=== PATIENT | female | born 1940 | race Two or more races ===

== ENCOUNTER 2017-10-13 08:11 | Inpatient (IN) | payer OTHER ==
[~2017-10-13] VITALS: Ht 162.6 cm; Wt 76.8 kg
[2017-10-13] MEDS ORDERED: SODIUM CHLORIDE 0.9% 1,000 ML IV ONE (08:34)
[2017-10-13 09:04] LABS: Basophils # (auto) 0.1 uL; Eosinophils # (auto) 0 uL; Eosinophils % (auto) 0.2 % (0.0-7.0); Hemoglobin 10.7 g/dL (12.2-16.2); Lymphocytes # (auto) 1.3 uL; Monocytes # (auto) 1.1 uL
[2017-10-13 09:08] LABS: Basophils % (auto) 0.6 % (0.0-2.0); Hematocrit 31.8 % (36.0-46.0); Lymphocytes % (auto) 11.2 % (10.0-50.0); Mean Corpuscular Hemoglobin 26.3 pg (28.0-32.0); Mean Corpuscular Hgb Conc. 33.8 g/dL (32.0-36.0); Mean Corpuscular Volume 77.8 fL (80.0-100.0); Monocytes % (auto) 9.3 % (0.0-12.0); Neutrophils # (auto) 9.3 uL; Neutrophils % (auto) 78.7 % (37.0-80.0); Nucleated Red Blood Cells % 0.1 %; Platelet Count (auto) 298 10^3/uL (140-450); Red Blood Cells 4.09 10^6/uL (4.0-5.20); Red Cell Distribution Width 15.4 % (11.8-14.3); White Blood Cell 11.9 10^3/uL (4.4-10.8)
[2017-10-13 09:19] LABS: Alanine Aminotransferase 14 U/L (13-56); Albumin 3.1 g/dL (3.4-5.0); Anion Gap 11 (5-15); Aspartate Aminotransferase 3 U/L (15-37); Blood Urea Nitrogen 10 mg/dL (7-18); Calcium 7.8 mg/dL (8.5-10.1); Carbon Dioxide 23 mmol/L (21-32); Chloride 95 mmol/L (98-107); GFR African American 61 mL/min; GFR Non-African American 51 mL/min; Glucose 160 mg/dL (74-106); Magnesium 1.3 mg/dL (1.6-2.6); Potassium 3.6 mmol/L (3.5-5.1); Sodium 129 mmol/L (136-145)
[2017-10-13 09:23] LABS: Alkaline Phosphatase 63 U/L (45-117); Bilirubin, Total 0.6 mg/dL (0.2-1.0); Total Protein 7.2 g/dL (6.4-8.2)
[2017-10-13] MEDS ORDERED: ASPirin 81 mg TAB PO ONE ×2 (09:45→11:15)
[2017-10-13 10:30] LABS: Urine Bacteria NONE SEEN /hpf (None Seen); Urine Blood Negative /uL (Negative); Urine Mucus FEW (None Seen); Urine Specific Gravity 1.005 (1.001-1.035); Urine WBC 68 /hpf (0 - 5)
[2017-10-13] MEDS ORDERED: SODIUM CHLORIDE 0.9% 1,000 ML IV SCH (10:53)
[2017-10-13] MEDS ORDERED: NITROGLYCERIN 0.4 MG SL TAB SL PRN (11:00)
[2017-10-13] MEDS ORDERED: MORPHINE SULF INJ 2 MG/ML SYRINGE 1ML IV PRN ×2 (11:00)
[2017-10-13] MEDS ORDERED: LORazepam 0.5 MG TAB PO PRN (11:00)
[2017-10-13] MEDS ORDERED: LACTULOSE 20Gm/30ML SOLN PO PRN (11:00)
[2017-10-13] MEDS ORDERED: ACETAMINOPHEN 500 MG TAB PO PRN (11:00)
[2017-10-13] MEDS ORDERED: TEMAZEPAM 15 MG CAP PO PRN (11:00)
[2017-10-13] MEDS ORDERED: DEXTROSE (50%) 50ML SYRG IV PRN (11:00)
[2017-10-13] MEDS ORDERED: PROMETHAZINE HCL 25 MG/ML 1ML IV PRN (11:00)
[2017-10-13] MEDS ORDERED: LABETALOL HCL 5 MG/ML ML 20ML VIAL IV PRN (11:00)
[2017-10-13] MEDS: ACCU-CHEK COMFORT CURVE STRIP VI SCH ×3 (11:10→22:00)
[2017-10-13] MEDS ORDERED: PANTOPRAZOLE 40 MG TAB PO ONE (11:15)
[2017-10-13] MEDS ORDERED: ENOXAPARIN SOD 40 MG/0.4 ML SYRINGE SC ONE (11:15)
[2017-10-13] MEDS: SODIUM CHLORIDE 0.9% 1,000 ML IV SCH (11:21)
[2017-10-13] MEDS: InsuLIN REG 1unit/0.01ml Soln (100units/ml) SC SCH ×3 (11:21→22:42)
[2017-10-13] MEDS ORDERED: ACET-1156 PO (11:25)
[2017-10-13] MEDS ORDERED: METH5TAB77 PO (11:33)
[2017-10-13] MEDS ORDERED: OMEP20TA PO (11:33)
[2017-10-13] MEDS ORDERED: GABA300C10 PO (11:33)
[2017-10-13] MEDS ORDERED: METO25TA62 PO (11:33)
[2017-10-13] MEDS ORDERED: ASPI81TA27 PO (11:33)
[2017-10-13] MEDS ORDERED: SERT-274 PO (11:33)
[2017-10-13] MEDS ORDERED: SITA100T7 PO (11:33)
[2017-10-13] MEDS ORDERED: METF-372 PO (11:33)
[2017-10-13] MEDS ORDERED: ATOR10TA52 PO (11:33)
[2017-10-13] MEDS ORDERED: ALEN70TA55 PO (11:33)
[2017-10-13] MEDS ORDERED: LISI40TA PO (11:33)
[2017-10-13] MEDS ORDERED: AMLO5TAB2 PO (11:33)
[2017-10-13] MEDS ORDERED: ISOSPOW2 PO (11:33)
[2017-10-13] MEDS ORDERED: HYDR25TA4 PO (11:33)
[2017-10-13 13:00] VITALS: BP 132/71
[2017-10-13 14:11] LABS: Folate (Folic Acid) 12.95 ng/mL (5.38-24)
[2017-10-13 17:30] VITALS: BP 151/83
[2017-10-13 21:33] VITALS: BP 150/85
[2017-10-13] MEDS: ATORVASTATIN 20 MG TAB PO SCH (22:36)
[2017-10-14] MEDS: SODIUM CHLORIDE 0.9% 1,000 ML IV SCH ×3 (03:46→20:08)
[2017-10-14 04:55] VITALS: BP 146/70
[2017-10-14 05:49] LABS: Basophils # (auto) 0 uL; Basophils % (auto) 0.5 % (0.0-2.0); Eosinophils # (auto) 0 uL; Eosinophils % (auto) 0.1 % (0.0-7.0); Hematocrit 31.6 % (36.0-46.0); Hemoglobin 10.8 g/dL (12.2-16.2); Lymphocytes # (auto) 0.9 uL; Lymphocytes % (auto) 11.6 % (10.0-50.0); Mean Corpuscular Hgb Conc. 34.2 g/dL (32.0-36.0); Monocytes # (auto) 0.6 uL; Monocytes % (auto) 8.8 % (0.0-12.0); Neutrophils # (auto) 5.8 uL; Platelet Count (auto) 290 10^3/uL (140-450); Red Blood Cells 4.01 10^6/uL (4.0-5.20); White Blood Cell 7.3 10^3/uL (4.4-10.8)
[2017-10-14 06:23] LABS: BUN/Creatinine Ratio 8.5; Bilirubin, Total 0.8 mg/dL (0.2-1.0); Calcium 7.9 mg/dL (8.5-10.1); Potassium 3.1 mmol/L (3.5-5.1); Total Protein 7.1 g/dL (6.4-8.2)
[2017-10-14] MEDS: InsuLIN REG 1unit/0.01ml Soln (100units/ml) SC SCH ×4 (06:30→21:39)
[2017-10-14] MEDS: ACCU-CHEK COMFORT CURVE STRIP VI SCH ×4 (06:30→21:24)
[2017-10-14] MEDS ORDERED: POTASSIUM CHL 20 Meq TABLET PO ONE (08:00)
[2017-10-14 09:00] VITALS: BP 154/66
[2017-10-14] MEDS ORDERED: cefTRIAXone 1GM/10ml IVPUSH 10 ML IV SCH (09:00)
[2017-10-14] MEDS: amLODIPine BESYLATE 5 MG TAB PO SCH (10:00)
[2017-10-14] MEDS: ENOXAPARIN SOD 40 MG/0.4 ML SYRINGE SC SCH (10:00)
[2017-10-14] MEDS: METOPROLOL SUCCINATE XL 50 MG TAB PO SCH (10:00)
[2017-10-14] MEDS: PANTOPRAZOLE 40 MG TAB PO SCH (10:00)
[2017-10-14] MEDS: ASPirin 81 mg TAB PO SCH (10:00)
[2017-10-14 12:50] VITALS: BP 144/60
[2017-10-14 17:00] VITALS: BP 150/77
[2017-10-14] MEDS: HYDROcodone-ACET 5/325MG TAB PO PRN (20:10)
[2017-10-14 22:01] VITALS: BP 123/56
[2017-10-14] MEDS: ATORVASTATIN 20 MG TAB PO SCH ×2 (22:40)
[2017-10-15 04:51] VITALS: BP 124/54
[2017-10-15] MEDS: ACCU-CHEK COMFORT CURVE STRIP VI SCH ×4 (06:24→22:00)
[2017-10-15] MEDS: InsuLIN REG 1unit/0.01ml Soln (100units/ml) SC SCH ×4 (06:30→23:10)
[2017-10-15 09:00] VITALS: BP 152/71
[2017-10-15] MEDS: LEVOTHYROXINE SODIUM 25 MCG TAB PO SCH (09:00)
[2017-10-15] MEDS: ASPirin 81 mg TAB PO SCH (10:00)
[2017-10-15] MEDS: ENOXAPARIN SOD 40 MG/0.4 ML SYRINGE SC SCH (10:00)
[2017-10-15] MEDS: PANTOPRAZOLE 40 MG TAB PO SCH (10:00)
[2017-10-15] MEDS: METOPROLOL SUCCINATE XL 50 MG TAB PO SCH (10:00)
[2017-10-15] MEDS: amLODIPine BESYLATE 5 MG TAB PO SCH (10:00)
[2017-10-15] MEDS ORDERED: NITROFURANTOIN (MONO) 100 mg CAP PO ONE (10:15)
[2017-10-15 12:22] LABS: INR 0.99 (0.9-1.15); Partial Thromboplastin Time 34.1 sec (23.78-33.04); Prothrombin Time 10.6 sec (9.27-12.13)
[2017-10-15 13:00] VITALS: BP 141/69
[2017-10-15] MEDS: HYDROcodone-ACET 5/325MG TAB PO PRN (15:23)
[2017-10-15 16:58] VITALS: BP 151/67
[2017-10-15] MEDS: SODIUM CHLORIDE 0.9% 1,000 ML IV SCH (17:04)
[2017-10-15 22:00] VITALS: BP 112/55
[2017-10-15] MEDS: NITROFURANTOIN (MONO) 100 mg CAP PO SCH (22:49)
[2017-10-15] MEDS: ATORVASTATIN 20 MG TAB PO SCH (22:49)
[2017-10-16] MEDS: SODIUM CHLORIDE 0.9% 1,000 ML IV SCH ×2 (00:58→18:20)
[2017-10-16 05:00] VITALS: BP 146/86
[2017-10-16] MEDS: ACCU-CHEK COMFORT CURVE STRIP VI SCH ×4 (06:31→22:04)
[2017-10-16] MEDS: LEVOTHYROXINE SODIUM 25 MCG TAB PO SCH (06:32)
[2017-10-16] MEDS: InsuLIN REG 1unit/0.01ml Soln (100units/ml) SC SCH ×4 (06:32→22:03)
[2017-10-16 08:55] VITALS: BP 155/64
[2017-10-16] MEDS: amLODIPine BESYLATE 5 MG TAB PO SCH ×2 (10:00→18:16)
[2017-10-16] MEDS: PANTOPRAZOLE 40 MG TAB PO SCH (10:00)
[2017-10-16] MEDS: METOPROLOL SUCCINATE XL 50 MG TAB PO SCH ×2 (10:00→18:17)
[2017-10-16] MEDS: ASPirin 81 mg TAB PO SCH (10:26)
[2017-10-16] MEDS: NITROFURANTOIN (MONO) 100 mg CAP PO SCH (10:26)
[2017-10-16] MEDS: ENOXAPARIN SOD 40 MG/0.4 ML SYRINGE SC SCH (10:27)
[2017-10-16 11:24] LABS: Free T3 2.51 pg/mL (2.3-4.2); Free T4 (Free Thyroxine) 1.29 ng/dL (0.89-1.76)
[2017-10-16 13:10] VITALS: BP 161/78
[2017-10-16] MEDS ORDERED: ADENOSINE 71 MG in GIVE UN-DILUTED 0 ML IV ONE (13:45)
[2017-10-16] MEDS ORDERED: MORPHINE SULF INJ 2 MG/ML SYRINGE 1ML IV PRN ×2 (14:15)
[2017-10-16] MEDS ORDERED: HYDROcodone-ACET 5/325MG TAB PO PRN (14:15)
[2017-10-16] MEDS ORDERED: cefTRIAXone 1GM/10ml IVPUSH 10 ML IV ONE (14:15)
[2017-10-16 16:21] VITALS: BP 180/81
[2017-10-16] MEDS ORDERED: LORazepam 2MG/ML-1ML VIAL IV PRN (19:30)
[2017-10-16 22:00] VITALS: BP 160/80
[2017-10-16] MEDS: ATORVASTATIN 20 MG TAB PO SCH (22:03)
[2017-10-17 05:04] VITALS: BP 154/75
[2017-10-17] MEDS: SODIUM CHLORIDE 0.9% 1,000 ML IV SCH ×2 (05:30→19:20)
[2017-10-17] MEDS: LEVOTHYROXINE SODIUM 25 MCG TAB PO SCH (06:30)
[2017-10-17] MEDS: ACCU-CHEK COMFORT CURVE STRIP VI SCH ×4 (06:31→21:40)
[2017-10-17] MEDS: InsuLIN REG 1unit/0.01ml Soln (100units/ml) SC SCH ×4 (06:31→21:40)
[2017-10-17 06:51] LABS: Basophils # (auto) 0 uL; Eosinophils # (auto) 0.1 uL; Hemoglobin 11.1 g/dL (12.2-16.2); Neutrophils # (auto) 2.7 uL
[2017-10-17 06:55] LABS: Basophils % (auto) 0.8 % (0.0-2.0); Eosinophils % (auto) 2.2 % (0.0-7.0); Hematocrit 32.6 % (36.0-46.0); Lymphocytes # (auto) 1.7 uL; Lymphocytes % (auto) 33.4 % (10.0-50.0); Mean Corpuscular Hemoglobin 26.2 pg (28.0-32.0); Monocytes # (auto) 0.6 uL; Monocytes % (auto) 11.4 % (0.0-12.0); Neutrophils % (auto) 52.2 % (37.0-80.0); Platelet Count (auto) 388 10^3/uL (140-450); Red Blood Cells 4.24 10^6/uL (4.0-5.20); Red Cell Distribution Width 14.9 % (11.8-14.3); White Blood Cell 5.2 10^3/uL (4.4-10.8)
[2017-10-17 07:15] LABS: BUN/Creatinine Ratio 10.2; Potassium 3.1 mmol/L (3.5-5.1)
[2017-10-17] MEDS ORDERED: OXYB15TA12 PO (08:07)
[2017-10-17 09:00] VITALS: BP 153/77
[2017-10-17] MEDS: cefTRIAXone 1GM/10ml IVPUSH 10 ML IV SCH (09:15)
[2017-10-17] MEDS: METOPROLOL SUCCINATE XL 50 MG TAB PO SCH (09:17)
[2017-10-17] MEDS: ASPirin 81 mg TAB PO SCH (09:17)
[2017-10-17] MEDS: amLODIPine BESYLATE 5 MG TAB PO SCH (09:17)
[2017-10-17] MEDS: SERTRALINE HCL 50 MG TAB PO SCH (09:18)
[2017-10-17] MEDS: PANTOPRAZOLE 40 MG TAB PO SCH (09:18)
[2017-10-17] MEDS: ENOXAPARIN SOD 40 MG/0.4 ML SYRINGE SC SCH (09:18)
[2017-10-17] MEDS ORDERED: HEPARIN IN NS 1000Units/500mL 0 ML ONE (11:55)
[2017-10-17] MEDS ORDERED: LIDOCAINE 2%HCL (LOCAL ANESTH.) INJ 10ml MDV ONE (11:55)
[2017-10-17] MEDS ORDERED: IOHEXOL 350 MG/ML 100ML IJ ONE (11:55)
[2017-10-17 17:34] VITALS: BP 161/70
[2017-10-17] MEDS: ATORVASTATIN 20 MG TAB PO SCH (21:40)
[2017-10-17 22:00] VITALS: BP 158/67
[2017-10-17] MEDS ORDERED: POTASSIUM CHL 20 Meq TABLET PO ONE (22:00)
[2017-10-18 05:54] VITALS: BP 157/72
[2017-10-18 06:19] LABS: BUN/Creatinine Ratio 9.5; Calcium 8.4 mg/dL (8.5-10.1); Potassium 3.4 mmol/L (3.5-5.1)
[2017-10-18] MEDS: ACCU-CHEK COMFORT CURVE STRIP VI SCH ×4 (06:21→21:59)
[2017-10-18] MEDS: InsuLIN REG 1unit/0.01ml Soln (100units/ml) SC SCH ×4 (06:21→21:58)
[2017-10-18] MEDS: SODIUM CHLORIDE 0.9% 1,000 ML IV SCH (06:33)
[2017-10-18] MEDS: LEVOTHYROXINE SODIUM 25 MCG TAB PO SCH (06:33)
[2017-10-18 08:14] VITALS: BP 150/85
[2017-10-18] MEDS: PANTOPRAZOLE 40 MG TAB PO SCH (08:45)
[2017-10-18] MEDS: METOPROLOL SUCCINATE XL 50 MG TAB PO SCH (08:45)
[2017-10-18] MEDS: cefTRIAXone 1GM/10ml IVPUSH 10 ML IV SCH (08:45)
[2017-10-18] MEDS: SERTRALINE HCL 50 MG TAB PO SCH (08:46)
[2017-10-18] MEDS: amLODIPine BESYLATE 5 MG TAB PO SCH (08:46)
[2017-10-18] MEDS: ASPirin 81 mg TAB PO SCH (08:46)
[2017-10-18] MEDS: ENOXAPARIN SOD 40 MG/0.4 ML SYRINGE SC SCH (08:47)
[2017-10-18] MEDS: METOPROLOL TARTRATE 50 MG TAB PO SCH ×2 (10:00→21:58)
[2017-10-18] MEDS ORDERED: LIDOCAINE 2% (LOCAL ANESTH.) PF 5ml SDV ONE (14:41)
[2017-10-18] MEDS ORDERED: IODIXANOL 320MG/ML 100ML BTL IV ONE (14:41)
[2017-10-18] MEDS ORDERED: ANGIOMAX 250 MG VIAL IV ONE (14:55)
[2017-10-18] MEDS ORDERED: MIDAZOLAM HCL 1MG/1ML-2 ML VIAL ONE (14:55)
[2017-10-18] MEDS ORDERED: SODIUM CHL 0.9% 50 ML ONE (14:55)
[2017-10-18] MEDS ORDERED: fentaNYL CITRATE 100 MCG/2 ML VL ONE (14:55)
[2017-10-18 17:15] VITALS: BP 144/70
[2017-10-18] MEDS: SODIUM CHLOR 0.9% PF (SALINE LOCK) 10ML VIAL/SYR IV SCH (21:57)
[2017-10-18] MEDS: ATORVASTATIN 20 MG TAB PO SCH (21:58)
[2017-10-18 22:11] VITALS: BP 155/70
[2017-10-19] MEDS: SODIUM CHLORIDE 0.9% 1,000 ML IV SCH (00:06)
[2017-10-19 05:00] VITALS: BP 162/75
[2017-10-19] MEDS: SODIUM CHLOR 0.9% PF (SALINE LOCK) 10ML VIAL/SYR IV SCH (06:02)
[2017-10-19] MEDS: LEVOTHYROXINE SODIUM 25 MCG TAB PO SCH (06:38)
[2017-10-19] MEDS: ACCU-CHEK COMFORT CURVE STRIP VI SCH ×2 (06:39→11:30)
[2017-10-19] MEDS: InsuLIN REG 1unit/0.01ml Soln (100units/ml) SC SCH ×2 (06:39→11:30)
[2017-10-19] MEDS ORDERED: POTASSIUM CHL 20 Meq TABLET PO ONE (08:45)
[2017-10-19] MEDS ORDERED: CIPR-173 PO (08:53)
[2017-10-19 09:00] VITALS: BP 140/69
[2017-10-19] MEDS: cefTRIAXone 1GM/10ml IVPUSH 10 ML IV SCH ×2 (09:00→10:21)
[2017-10-19] MEDS: SERTRALINE HCL 50 MG TAB PO SCH (10:00)
[2017-10-19] MEDS: METOPROLOL TARTRATE 50 MG TAB PO SCH (10:20)
[2017-10-19] MEDS: PANTOPRAZOLE 40 MG TAB PO SCH (10:20)
[2017-10-19] MEDS: amLODIPine BESYLATE 5 MG TAB PO SCH (10:20)
[2017-10-19] MEDS: ASPirin 81 mg TAB PO SCH (10:21)
[2017-10-19] MEDS: ENOXAPARIN SOD 40 MG/0.4 ML SYRINGE SC SCH (10:21)
[2017-10-19 12:25] VITALS: BP 140/69
[2017-10-20] MEDS ORDERED: LEVOTHYROXINE SODIUM 25 MCG TAB PO SCH (07:00)
== END 2017-10-19 15:13 | disposition home or self-care (01) | DRG 853 ==
LOC: ER 08:11 → WEST WING 08:12 → TELE-WESTW 11:41
PROVIDERS: ADMIT Internal Medicine; ATTEND Internal Medicine
PROC: 4A023N7 Measurement of Cardiac Sampling and Pressure, Left Heart, Percutaneous Approach (ICD-10-PCS; principal; 2017-10-18)
PROC: 02703ZZ Dilation of Coronary Artery, One Artery, Percutaneous Approach (ICD-10-PCS; 2017-10-18)
PROC: B2111ZZ Fluoroscopy of Multiple Coronary Arteries using Low Osmolar Contrast (ICD-10-PCS; 2017-10-18)
PROC: B2151ZZ Fluoroscopy of Left Heart using Low Osmolar Contrast (ICD-10-PCS; 2017-10-18)
DX: A41.9 Sepsis, unspecified organism (principal); G93.41 Metabolic encephalopathy; N39.0 Urinary tract infection, site not specified; E87.1 Hypo-osmolality and hyponatremia; I69.354 Hemiplegia and hemiparesis following cerebral infarction affecting left non-dominant side; E11.42 Type 2 diabetes mellitus with diabetic polyneuropathy; Z83.3 Family history of diabetes mellitus; I10 Essential (primary) hypertension; E78.5 Hyperlipidemia, unspecified; F32.9 Major depressive disorder, single episode, unspecified; M19.90 Unspecified osteoarthritis, unspecified site; E66.9 Obesity, unspecified; E03.9 Hypothyroidism, unspecified; B96.20 Unspecified Escherichia coli [E. coli] as the cause of diseases classified elsewhere; E05.90 Thyrotoxicosis, unspecified without thyrotoxic crisis or storm; F41.9 Anxiety disorder, unspecified; I67.2 Cerebral atherosclerosis; Z79.899 Other long term (current) drug therapy; Z82.49 Family history of ischemic heart disease and other diseases of the circulatory system; Z90.710 Acquired absence of both cervix and uterus; Z79.82 Long term (current) use of aspirin; Z87.891 Personal history of nicotine dependence; Z68.29 Body mass index [BMI] 29.0-29.9, adult
CPT/HCPCS: 36415; 70450; 70551; 71046; 78452; 80048; 80053; 80061; 81001; 82550; 82565; 82607; 82746; 82962; 83036; 83605; 83735; 83880; 84132; 84439; 84443; 84481; 84484; 85025; 85610; 85652; 85730; 86850; 86900; 86901; 87040; 87086; 87088; 87186; 92920; 93005; 93017; 93306; 93458; 93886; 94761; 96360; 96372; 99152; A6257; J0153; J0696; J1815; J2001; J2250; Q9967

== ENCOUNTER 2019-09-05 14:17 | Emergency (ER) | payer OTHER ==
[~2019-09-05] VITALS: Ht 154.9 cm; Wt 77.1 kg
[~2019-09-05 14:17] MED LIST: ACET-1156 PO; ALEN1TAB32 PO; AMLO5TAB15 PO; ASPI-404 PO; ATOR10TA52 PO; CIPR-173 PO; GABA300C10 PO; HYDR25TA4 PO; ISOSPOW2 PO; LISI40TA PO; METF-372 PO; METH5T PO; METO25TA93 PO; OMEP20TA PO; OXYB15TA12 PO; SERT-274 PO; SITA100T7 PO
[2019-09-05 16:40] VITALS: BP 147/60
== END 2019-09-05 18:00 | disposition home or self-care (01) ==
LOC: ER 14:17
DX: U07.1 COVID-19 (principal); J06.9 Acute upper respiratory infection, unspecified; F41.9 Anxiety disorder, unspecified; E11.9 Type 2 diabetes mellitus without complications; E78.5 Hyperlipidemia, unspecified; I10 Essential (primary) hypertension; Z86.73 Personal history of transient ischemic attack (TIA), and cerebral infarction without residual deficits; Z90.710 Acquired absence of both cervix and uterus
CPT/HCPCS: 71045; 93005; 99285; U0003

== ENCOUNTER 2021-04-05 12:45 | Emergency (ER) | payer OTHER ==
[~2021-04-05] VITALS: Ht 162.6 cm; Wt 77.1 kg
[~2021-04-05 12:45] MED LIST changes: -ALEN1TAB32 PO; +ALEN70TA74 PO; +AMLO-489 PO; -AMLO5TAB15 PO; -ASPI-404 PO; +ASPI-543 PO; -LISI40TA PO; +LISI40TA11 PO; -SERT-274 PO; +SERT50TA19 PO
[2021-04-05] MEDS ORDERED: IBUPROFEN 800 MG TAB PO ONE (16:45)
[2021-04-05] MEDS ORDERED: ACETAMINOPHEN 325 MG TAB PO ONE (16:45)
[2021-04-05] MEDS ORDERED: ACET1CAP14 PO (16:55)
[2021-04-05] MEDS ORDERED: AMOX500C2 PO (16:55)
[2021-04-05 17:27] VITALS: BP 153/88
== END 2021-04-05 17:36 | disposition home or self-care (01) ==
LOC: ER 12:47
DX: H72.91 Unspecified perforation of tympanic membrane, right ear (principal); H66.91 Otitis media, unspecified, right ear; I10 Essential (primary) hypertension; E11.9 Type 2 diabetes mellitus without complications; E78.5 Hyperlipidemia, unspecified; Z86.73 Personal history of transient ischemic attack (TIA), and cerebral infarction without residual deficits; Z90.710 Acquired absence of both cervix and uterus; Z79.82 Long term (current) use of aspirin; Z79.899 Other long term (current) drug therapy

== ENCOUNTER 2021-05-09 13:40 | Emergency (ER) | payer OTHER ==
[~2021-05-09] VITALS: Ht 157.5 cm; Wt 77.1 kg
[~2021-05-09 13:40] MED LIST changes: +ACET1CAP14 PO; +AMOX500C2 PO
[2021-05-09 14:31] LABS: Basophils # (auto) 0.1 10 ^3/uL (0-0.2); Eosinophils # (auto) 0.1 10 ^3/uL (0-0.8); Lymphocytes # (auto) 1.8 10 ^3/uL (0.4-5.4); Monocytes # (auto) 0.5 10 ^3/uL (0-1.3); Nucleated Red Blood Cells % 0.1 %
[2021-05-09 14:33] LABS: Basophils % (auto) 0.9 % (0.0-2.0); Eosinophils % (auto) 0.8 % (0.0-7.0); Hematocrit 32.8 % (36.0-46.0); Lymphocytes % (auto) 20.8 % (10.0-50.0); Mean Corpuscular Hemoglobin 25.4 pg (28.0-32.0); Mean Corpuscular Hgb Conc. 33.6 g/dL (32.0-36.0); Mean Corpuscular Volume 75.6 fL (80.0-100.0); Monocytes % (auto) 6.2 % (0.0-12.0); Neutrophils # (auto) 6.1 10 ^3/uL (1.6-8.6); Neutrophils % (auto) 71.3 % (37.0-80.0); Red Blood Cells 4.34 10^6/uL (4.0-5.20); Red Cell Distribution Width 15.9 % (11.8-14.3); White Blood Cell 8.5 10^3/uL (4.4-10.8)
[2021-05-09 14:46] LABS: Albumin 3.7 g/dL (3.4-5.0); Calcium 9.5 mg/dL (8.5-10.1)
[2021-05-09 14:50] LABS: BUN/Creatinine Ratio 17.5; Bilirubin, Total 0.4 mg/dL (0.2-1.0); Total Protein 7.7 g/dL (6.4-8.2)
[2021-05-09 18:05] VITALS: BP 139/61
== END 2021-05-09 18:19 | disposition home or self-care (01) ==
LOC: ER 13:40
DX: S82.892A Other fracture of left lower leg, initial encounter for closed fracture (principal); R42 Dizziness and giddiness; I10 Essential (primary) hypertension; E11.9 Type 2 diabetes mellitus without complications; E78.5 Hyperlipidemia, unspecified; Z90.710 Acquired absence of both cervix and uterus; Z79.82 Long term (current) use of aspirin; Z79.899 Other long term (current) drug therapy; W18.39XA Other fall on same level, initial encounter; Y93.89 Activity, other specified; Y92.89 Other specified places as the place of occurrence of the external cause; Y99.8 Other external cause status
CPT/HCPCS: 29515; 36415; 73600; 80053; 84484; 85025; 93005

== ENCOUNTER 2021-06-06 10:59 | Emergency (ER) | payer OTHER ==
[~2021-06-06] VITALS: Ht 157.5 cm; Wt 77.1 kg
[2021-06-06 13:57] VITALS: BP 142/77
== END 2021-06-06 13:46 | disposition home or self-care (01) ==
LOC: ER 10:59
DX: S20.211A Contusion of right front wall of thorax, initial encounter (principal); E11.9 Type 2 diabetes mellitus without complications; E78.5 Hyperlipidemia, unspecified; I10 Essential (primary) hypertension; Z90.710 Acquired absence of both cervix and uterus; Z86.73 Personal history of transient ischemic attack (TIA), and cerebral infarction without residual deficits; X58.XXXA Exposure to other specified factors, initial encounter; Y93.89 Activity, other specified; Y92.89 Other specified places as the place of occurrence of the external cause; Y99.8 Other external cause status
CPT/HCPCS: 71250; 93005

== ENCOUNTER 2022-01-02 11:30 | Emergency (ER) | payer OTHER ==
[~2022-01-02] VITALS: Ht 162.6 cm; Wt 77.0 kg
[2022-01-02 13:39] VITALS: BP 141/62
[2022-01-02] MEDS ORDERED: AZITTAB PO (15:47)
== END 2022-01-02 15:57 | disposition home or self-care (01) ==
LOC: ER 11:30
DX: J06.9 Acute upper respiratory infection, unspecified (principal); E11.9 Type 2 diabetes mellitus without complications; E78.5 Hyperlipidemia, unspecified; I10 Essential (primary) hypertension; Z87.820 Personal history of traumatic brain injury; Z90.710 Acquired absence of both cervix and uterus; Z20.822 Contact with and (suspected) exposure to COVID-19
CPT/HCPCS: 36415; 87426; 87804

== ENCOUNTER 2022-07-09 14:39 | Emergency (ER) | payer OTHER ==
[~2022-07-09] VITALS: Ht 152.4 cm; Wt 83.0 kg
[~2022-07-09 14:39] MED LIST changes: +AZITTAB PO
[2022-07-09 15:10] VITALS: BP 143/56
[2022-07-09] MEDS ORDERED: ACET-1080 PO (16:24)
== END 2022-07-09 16:39 | disposition home or self-care (01) ==
LOC: ER 14:39
DX: S63.501A Unspecified sprain of right wrist, initial encounter (principal); M19.031 Primary osteoarthritis, right wrist; E11.9 Type 2 diabetes mellitus without complications; E78.5 Hyperlipidemia, unspecified; I10 Essential (primary) hypertension; Z86.73 Personal history of transient ischemic attack (TIA), and cerebral infarction without residual deficits; W18.39XA Other fall on same level, initial encounter; Y93.01 Activity, walking, marching and hiking; Y92.89 Other specified places as the place of occurrence of the external cause; Y99.8 Other external cause status
CPT/HCPCS: 29125; 73110

== ENCOUNTER 2023-01-07 11:42 | Emergency (ER) | payer OTHER ==
[~2023-01-07] VITALS: Ht 154.9 cm; Wt 78.6 kg
[~2023-01-07 11:42] MED LIST changes: +ACET-1080 PO; -ACET-1156 PO; +ACET-1881 PO; -AMLO-489 PO; +AMLO1TAB22 PO; +GABA-1250 PO; -GABA300C10 PO; -LISI40TA11 PO; +LISI40TA16 PO; -METH5T PO; +METH5TAB98 PO; +SERT-206 PO; -SERT50TA19 PO
[2023-01-07 13:09] LABS: Basophils # (auto) 0.1 10 ^3/uL (0-0.2); Eosinophils # (auto) 0.2 10 ^3/uL (0-0.8); Hemoglobin 9.1 g/dL (12.2-16.2); Lymphocytes # (auto) 1.6 10 ^3/uL (0.4-5.4); Mean Corpuscular Hemoglobin 22.6 pg (28.0-32.0); Monocytes # (auto) 0.4 10 ^3/uL (0-1.3); Monocytes % (auto) 7.4 % (0.0-12.0); Red Blood Cells 4.04 10^6/uL (4.0-5.20); White Blood Cell 5.8 10^3/uL (4.4-10.8)
[2023-01-07 13:11] LABS: Basophils % (auto) 0.9 % (0.0-2.0); Eosinophils % (auto) 3.7 % (0.0-7.0); Hematocrit 28.9 % (36.0-46.0); Lymphocytes % (auto) 28.4 % (10.0-50.0); Mean Corpuscular Hgb Conc. 31.6 g/dL (32.0-36.0); Mean Corpuscular Volume 71.6 fL (80.0-100.0); Neutrophils # (auto) 3.4 10 ^3/uL (1.6-8.6); Neutrophils % (auto) 59.6 % (37.0-80.0); Nucleated Red Blood Cells % 0.1 %
[2023-01-07 13:26] LABS: Alanine Aminotransferase < 9 U/L (7-40); Albumin 4.3 g/dL (3.2-4.8); Alkaline Phosphatase 82 U/L (46-116); Anion Gap 9 (5-15); Aspartate Aminotransferase < 8 U/L (13-40); BUN/Creatinine Ratio 11.2 (10.0-20.0); Bilirubin, Total 0.5 mg/dL (0.2-1.0); Blood Urea Nitrogen 14 mg/dL (9-23); Calcium 9.1 mg/dL (8.7-10.4); Carbon Dioxide 25 mmol/L (20-30); Chloride 103 mmol/L (98-107); Glucose 140 mg/dL (74-106); Magnesium 1.7 mg/dL (1.6-2.6); Potassium 3.9 mmol/L (3.5-5.1); Sodium 137 mmol/L (136-145); Total Protein 7.4 g/dL (5.7-8.2)
[2023-01-07] MEDS ORDERED: SODIUM CHLORIDE 0.9% 1,000 ML IV ONE (16:00)
[2023-01-07] MEDS ORDERED: FUROSEMIDE 20 MG TAB PO ONE (18:00)
[2023-01-07] MEDS ORDERED: SPIRONOLACTONE 25 MG TAB PO ONE (18:00)
[2023-01-07 19:26] LABS: Partial Thromboplastin Time 30.5 SEC (24.5-34.5); Prothrombin Time 10.5 sec (9.3-11.8)
[2023-01-07] MEDS ORDERED: SPIR25TA PO (20:41)
[2023-01-07] MEDS ORDERED: FURO1TAB33 PO (20:41)
[2023-01-07 20:58] VITALS: BP 156/66; PULSE 62; RESP 17; O2SAT 92
== END 2023-01-07 21:03 | disposition home or self-care (01) ==
LOC: ER 11:42
DX: S20.211A Contusion of right front wall of thorax, initial encounter (principal); I11.0 Hypertensive heart disease with heart failure; I50.9 Heart failure, unspecified; E11.21 Type 2 diabetes mellitus with diabetic nephropathy; D63.8 Anemia in other chronic diseases classified elsewhere; E78.5 Hyperlipidemia, unspecified; I10 Essential (primary) hypertension; Z86.73 Personal history of transient ischemic attack (TIA), and cerebral infarction without residual deficits; Z90.710 Acquired absence of both cervix and uterus; W18.39XA Other fall on same level, initial encounter; Y93.89 Activity, other specified; Y92.098 Other place in other non-institutional residence as the place of occurrence of the external cause; Y99.8 Other external cause status
CPT/HCPCS: 36415; 71101; 80053; 83735; 83880; 84443; 84484; 85025; 85379; 85610; 85730; 93005; 96360; 96361; 99285; J7030

== ENCOUNTER 2023-03-21 07:10 | Day surgery (SDC) | payer OTHER ==
[2023-03-21] VITALS (8 sets, daily range): BP systolic 164–180; BP diastolic 69–78; PULSE 66–77; RESP 15–19; TEMP 98; O2SAT 92–97
[~2023-03-21] VITALS: Ht 154.9 cm; Wt 74.8 kg
[~2023-03-21 07:10] MED LIST changes: -ACET-1080 PO; -ACET-1881 PO; -ACET1CAP14 PO; -ALEN70TA74 PO; -AMLO1TAB22 PO; -AMOX500C2 PO; -ATOR10TA52 PO; -AZITTAB PO; -CIPR-173 PO; +CYAN1TAB11 PO; +FURO1TAB33 PO; +GLIP-204 PO; -ISOSPOW2 PO; -LISI40TA16 PO; -METF-372 PO; -METH5TAB98 PO; +SPIR25TA PO
[2023-03-21] MEDS ORDERED: ANGIOMAX 250 MG VIAL IV ONE (08:46)
[2023-03-21] MEDS ORDERED: MIDAZOLAM HCL 2MG/2ML 2ml VIAL (1mg/ml) ONE (08:47)
[2023-03-21] MEDS ORDERED: HEPARIN SODIUM (PORCINE) 5000 UNITS/ML 1ML VIAL ONE (08:47)
[2023-03-21] MEDS ORDERED: VERAPAMIL 2.5MG/ML INJ 2ML VIAL IV ONE (08:47)
[2023-03-21] MEDS ORDERED: fentaNYL CITRATE 100 MCG/2 ML VL ONE (08:47)
[2023-03-21] MEDS ORDERED: IODIXANOL 320MG/ML 100ML BTL IV ONE (08:48)
[2023-03-21] MEDS ORDERED: LIDOCAINE 2%HCL (LOCAL ANESTH.) INJ 20ML MDV ONE (08:48)
[2023-03-21] MEDS ORDERED: SODIUM CHL 0.9% 0 ML ONE (08:48)
[2023-03-21] MEDS ORDERED: HEPARIN IN NS 1000Units/500mL 1,500 ML ONE (08:48)
[2023-03-21] MEDS ORDERED: FURO20TA3 PO (11:03)
[2023-03-21] MEDS ORDERED: ASPI1TAB19 PO (11:03)
[2023-03-21] MEDS ORDERED: SPIR25TA PO (11:03)
[2023-03-21] MEDS ORDERED: SERT25TA28 PO (11:03)
== END 2023-03-21 13:28 | disposition home or self-care (01) ==
LOC: CATH 07:10
PROVIDERS: ATTEND Internal Medicine Cardiovascular Disease
DX: R94.39 Abnormal result of other cardiovascular function study (principal); I25.10 Atherosclerotic heart disease of native coronary artery without angina pectoris; I25.82 Chronic total occlusion of coronary artery; I10 Essential (primary) hypertension; E11.9 Type 2 diabetes mellitus without complications; I34.81 Nonrheumatic mitral (valve) annulus calcification; R06.02 Shortness of breath
CPT/HCPCS: 93458; C1769; C1887; C1894; J1644; J2250; J3010; J7030; Q9967; 99152

== ENCOUNTER 2023-07-08 00:52 | Inpatient (IN) | payer OTHER ==
[~2023-07-08] VITALS: Ht 154.9 cm; Wt 82.4 kg
[~2023-07-08 00:52] MED LIST changes: -ASPI-543 PO; +ASPI1TAB19 PO; -FURO1TAB33 PO; +FURO20TA3 PO; -SERT-206 PO; +SERT25TA28 PO
[2023-07-08] MEDS: ONDANSETRON HCL 4 MG/2 ML VIAL IV ONE (01:24)
[2023-07-08] MEDS: MORPHINE SULFATE 4 MG/ML SYR/VIAL IV ONE ×2 (01:24→01:30)
[2023-07-08 01:25] VITALS: PULSE 80; RESP 10; O2SAT 95
[2023-07-08 01:48] LABS: Chloride 103 mmol/L (98-107); Potassium 3.8 mmol/L (3.5-5.1); Sodium 137 mmol/L (136-145)
[2023-07-08 01:49] LABS: Basophils # (auto) 0.1 10 ^3/uL (0-0.2); Basophils % (auto) 0.7 % (0.0-2.0); Eosinophils # (auto) 0.1 10 ^3/uL (0-0.8); Eosinophils % (auto) 1.2 % (0.0-7.0); Hematocrit 43.1 % (36.0-46.0); Hemoglobin 14.3 g/dL (12.2-16.2); Lymphocytes # (auto) 1.6 10 ^3/uL (0.4-5.4); Lymphocytes % (auto) 15.8 % (10.0-50.0); Mean Corpuscular Hemoglobin 27.8 pg (28.0-32.0); Mean Corpuscular Hgb Conc. 33.1 g/dL (32.0-36.0); Mean Corpuscular Volume 83.8 fL (80.0-100.0); Monocytes # (auto) 0.6 10 ^3/uL (0-1.3); Monocytes % (auto) 5.3 % (0.0-12.0); Nucleated Red Blood Cells % 0.2 %; Red Blood Cells 5.15 10^6/uL (4.0-5.20); Red Cell Distribution Width 14.7 % (11.8-14.3); White Blood Cell 10.4 10^3/uL (4.4-10.8)
[2023-07-08 01:50] LABS: Anion Gap 9 (5-15); Calcium 10.3 mg/dL (8.7-10.4); Carbon Dioxide 25 mmol/L (20-30)
[2023-07-08 01:55] LABS: BUN/Creatinine Ratio 14.6 (10.0-20.0); Blood Urea Nitrogen 21 mg/dL (9-23); Glucose 227 mg/dL (74-106)
[2023-07-08] MEDS ORDERED: ONDANSETRON HCL 4 MG/2 ML VIAL IV PRN (04:00)
[2023-07-08] MEDS ORDERED: ACETAMINOPHEN 325 MG TAB PO PRN (04:00)
[2023-07-08] MEDS: SODIUM CHLORIDE 0.9% 1,000 ML IV SCH (04:00)
[2023-07-08] MEDS ORDERED: NITROGLYCERIN 0.4 MG SL TAB SL PRN (04:00)
[2023-07-08] MEDS ORDERED: DOCUSATE SOD 100 MG CAP PO PRN (04:00)
[2023-07-08 04:38] LABS: Urine Bacteria None Seen /hpf (None Seen)
[2023-07-08 04:49] LABS: Urine Blood Negative /uL (Negative); Urine Clarity Clear (Clear); Urine Color Light-Yellow (Yellow); Urine Protein, UAD 1+ (Negative); Urine Specific Gravity 1.014 (1.001-1.035); Urine Urobilinogen Normal (Negative); Urine WBC <1 /hpf (0 - 5); Urine pH 5.5 (5.0-9.0)
[2023-07-08] MEDS ORDERED: LOSA-535 PO (05:14)
[2023-07-08] MEDS ORDERED: [UNRECOGNIZED DRUG - CODE] IV (05:15)
[2023-07-08] MEDS: HYDROcodone-ACET 5/325MG TAB PO PRN (05:23)
[2023-07-08] MEDS: MORPHINE SULFATE INJ 2 MG/ml SYRG IV PRN (06:35)
[2023-07-08 07:23] VITALS: PULSE 78; RESP 12; O2SAT 97
[2023-07-08] MEDS ORDERED: DEXTROSE (50%) 50ML SYRG IV PRN (09:15)
[2023-07-08 09:31] LABS: Triglycerides 155 mg/dL (< 150)
[2023-07-08 09:32] LABS: LDL Cholesterol 98 mg/dL (< 100)
[2023-07-08 09:33] LABS: Cholesterol 170 mg/dL (< 200); HDL Cholesterol 50 mg/dL (40-59)
[2023-07-08] MEDS: FAMOTIDINE 20 MG TAB PO SCH (10:00)
[2023-07-08] MEDS: SERTRALINE HCL 50 MG TAB PO SCH (10:00)
[2023-07-08] MEDS: ASCORBIC ACID 500 MG TAB PO SCH (10:02)
[2023-07-08] MEDS: ZINC SULFATE 220mg CAP or TAB PO SCH (10:03)
[2023-07-08] MEDS: ENOXAPARIN SOD 30 MG/0.3 ML SYRINGE SC SCH (10:03)
[2023-07-08] MEDS: MULTIPLE VITAMIN TAB PO SCH (10:03)
[2023-07-08] MEDS: METOPROLOL SUCCINATE XL 50 MG TAB PO SCH (10:04)
[2023-07-08] MEDS: HYDROmorphone HCL 2 MG/ML VL/or syr IV PRN (10:19)
[2023-07-08 10:48] LABS: INR 1.05 (0.9-1.15); Partial Thromboplastin Time 28.8 SEC (24.5-34.5); Prothrombin Time 11.1 sec (9.3-11.8)
[2023-07-08] MEDS: InsuLIN REG 1unit/0.01ml Soln (100units/ml) SC SCH ×2 (11:30→21:44)
[2023-07-08] MEDS: ACCU-CHEK COMFORT CURVE STRIP VI SCH (11:30)
[2023-07-08] MEDS: FUROSEMIDE 20 MG/2 ML VIAL IV ONE (19:44)
[2023-07-08 20:29] VITALS: O2SAT 97
[2023-07-08] MEDS ORDERED: hydrALAZINE HCL 20 MG/ML VL IV PRN (20:30)
[2023-07-08 21:36] VITALS: BP 139/52; PULSE 69; RESP 20; TEMP 100; O2SAT 92
[2023-07-08] MEDS: ATORVASTATIN 20 MG TAB PO SCH (21:37)
[2023-07-08] MEDS: GABAPENTIN 300 MG CAP PO SCH (21:37)
[2023-07-08] MEDS ORDERED: HYDR-4491 PO (22:20)
[2023-07-08] MEDS ORDERED: FER325T PO (22:21)
[2023-07-08] MEDS ORDERED: FOLITAB22 PO (22:25)
[2023-07-08] MEDS ORDERED: FURO20TA3 PO (22:25)
[2023-07-09 06:12] LABS: Basophils # (auto) 0.1 10 ^3/uL (0-0.2); Basophils % (auto) 0.6 % (0.0-2.0); Eosinophils # (auto) 0.1 10 ^3/uL (0-0.8); Eosinophils % (auto) 1.3 % (0.0-7.0); Hematocrit 40.7 % (36.0-46.0); Hemoglobin 13.4 g/dL (12.2-16.2); Lymphocytes # (auto) 1.9 10 ^3/uL (0.4-5.4); Lymphocytes % (auto) 21.6 % (10.0-50.0); Mean Corpuscular Hemoglobin 27.4 pg (28.0-32.0); Mean Corpuscular Volume 83.1 fL (80.0-100.0); Monocytes # (auto) 0.9 10 ^3/uL (0-1.3); Monocytes % (auto) 10.1 % (0.0-12.0); Neutrophils # (auto) 5.8 10 ^3/uL (1.6-8.6); Neutrophils % (auto) 66.4 % (37.0-80.0); Nucleated Red Blood Cells % 0.1 %; Red Blood Cells 4.89 10^6/uL (4.0-5.20); Red Cell Distribution Width 14.9 % (11.8-14.3); White Blood Cell 8.7 10^3/uL (4.4-10.8)
[2023-07-09 06:40] LABS: Albumin 3.7 g/dL (3.2-4.8); Alkaline Phosphatase 68 U/L (46-116); Anion Gap 8 (5-15); Aspartate Aminotransferase < 8 U/L (13-40); Blood Urea Nitrogen 18 mg/dL (9-23); Calcium 9.6 mg/dL (8.7-10.4); Carbon Dioxide 26 mmol/L (20-30); Chloride 105 mmol/L (98-107); Glucose 124 mg/dL (74-106); Potassium 3.6 mmol/L (3.5-5.1); Sodium 139 mmol/L (136-145)
[2023-07-09 06:41] LABS: Bilirubin, Total 0.6 mg/dL (0.2-1.0); Total Protein 6.5 g/dL (5.7-8.2)
[2023-07-09 06:48] LABS: Alanine Aminotransferase < 9 U/L (7-40)
[2023-07-09 08:00] VITALS: PULSE 64; PULSE 74; RESP 18; O2SAT 99
[2023-07-09 09:17] VITALS: BP 119/59; PULSE 76; RESP 18; TEMP 98.8; O2SAT 99
[2023-07-09] MEDS: dilTIAZem 120MG ER CAP PO SCH (09:50)
[2023-07-09 13:08] VITALS: BP 107/45; PULSE 83; RESP 18; TEMP 99.8; O2SAT 90
[2023-07-09 17:35] VITALS: BP 112/45; PULSE 63; RESP 18; TEMP 99.2; O2SAT 96
[2023-07-09 20:00] VITALS: BP 119/49; PULSE 64; PULSE 70; RESP 20; TEMP 99.2; O2SAT 96
[2023-07-09 22:00] VITALS: BP 119/49; PULSE 70; RESP 20; TEMP 99.2; O2SAT 96
[2023-07-10] VITALS (8 sets, daily range): BP systolic 113–141; BP diastolic 32–50; PULSE 64–87; RESP 12–20; TEMP 97.8–99.7; O2SAT 92–99
[2023-07-10] MEDS: FUROSEMIDE 20 MG TAB PO SCH (09:00)
[2023-07-10] MEDS: ceFAZolin 2 GM/D5W50ml 50 ML IV ONE (14:09)
[2023-07-10] MEDS ORDERED: ONDANSETRON HCL 4 MG/2 ML VIAL ONE (14:28)
[2023-07-10] MEDS ORDERED: KETOROLAC TROMETH 30 MG/ML 1ML VIAL ONE (14:28)
[2023-07-10] MEDS ORDERED: PROPOFOL 10 MG/ML 20 ML IV ONE (14:28)
[2023-07-10] MEDS ORDERED: LIDOCAINE 1% INJ PF 5ML AMP ONE (14:28)
[2023-07-10] MEDS ORDERED: DexAMETHasone SOD PHOS 10MG/1ML VIAL INJ ONE ×2 (14:28→15:12)
[2023-07-10] MEDS ORDERED: GLYCOPYRROLATE 0.2 MG/ML 1ML VIAL ONE (14:28)
[2023-07-10] MEDS ORDERED: KETAMINE 50mg/ML 1ml syringe ONE (14:29)
[2023-07-10] MEDS: ACETAMINOPHEN IV 1000 MG/100ML (10MG/ML) IV ONE (14:30)
[2023-07-10] MEDS: BUPIVACAINE 0.5% MPF INJ 30ML SDV IJ ONE (14:37)
[2023-07-10] MEDS: GABAPENTIN 400 MG CAP ONE (14:39)
[2023-07-10] MEDS: CELECOXIB 100 MG CAP ONE (14:39)
[2023-07-10] MEDS: GABAPENTIN 100 MG CAP ONE (14:41)
[2023-07-10] MEDS: GABAPENTIN 100 MG CAP PO ONE (14:43)
[2023-07-10] MEDS: CELECOXIB 100 MG CAP PO ONE (14:43)
[2023-07-10] MEDS ORDERED: ePHEDrine SULFATE 50 MG/ML AMP ONE (15:06)
[2023-07-10] MEDS ORDERED: SODIUM CHLORIDE LOCK 10 ML ONE (15:06)
[2023-07-10] MEDS ORDERED: PHENYLEPHRINE HCL 10 MG/ML VL ONE (15:06)
[2023-07-10] MEDS ORDERED: EPINEPHrine HCL 1 MG/1 ML AMP ONE (15:12)
[2023-07-10] MEDS ORDERED: MET25T PO (15:36)
[2023-07-10] MEDS ORDERED: OXYB5TAB14 PO (15:36)
[2023-07-10] MEDS ORDERED: DILT120C20 PO (15:36)
[2023-07-10] MEDS ORDERED: TIRZ2.5I SC (15:56)
[2023-07-10] MEDS ORDERED: DAPA1TAB4 PO (15:56)
[2023-07-10] MEDS ORDERED: ERGO1CAP12 PO (15:56)
[2023-07-10] MEDS ORDERED: SIMV10TA20 PO (15:56)
[2023-07-10] MEDS: ACETAMINOPHEN IV 100 ML IV ONE (16:19)
[2023-07-10] MEDS ORDERED: LABETALOL HCL 5 MG/ML 4ML SYRINGE IV PRN (16:30)
[2023-07-10] MEDS ORDERED: FLUMAZENIL 0.1 MG/ML INJ 10ML MDV IV PRN (16:30)
[2023-07-10] MEDS ORDERED: hydrALAZINE HCL 20 MG/ML VL IV PRN (16:30)
[2023-07-10] MEDS ORDERED: fentaNYL CITRATE 100 MCG/2 ML VL IV PRN (16:30)
[2023-07-10] MEDS ORDERED: HYDROmorphone HCL 2 MG/ML VL/or syr IV PRN (16:30)
[2023-07-10] MEDS ORDERED: ONDANSETRON HCL 4 MG/2 ML VIAL IV PRN (16:30)
[2023-07-10] MEDS ORDERED: ePHEDrine SULFATE 50 MG/ML AMP IV PRN (16:30)
[2023-07-10] MEDS ORDERED: NALOXONE HCL 0.4 MG/ML VIAL IV PRN (16:30)
[2023-07-10] MEDS: ceFAZolin 1GM/50ML 50 ML IV SCH (22:14)
[2023-07-11] VITALS (8 sets, daily range): BP systolic 131–155; BP diastolic 38–69; PULSE 60–77; RESP 17–19; TEMP 97.5–98.5; O2SAT 90–98
[2023-07-11 15:46] LABS: Basophils # (auto) 0 10 ^3/uL (0-0.2); Basophils % (auto) 0.2 % (0.0-2.0); Eosinophils # (auto) 0 10 ^3/uL (0-0.8); Hematocrit 32.3 % (36.0-46.0); Hemoglobin 10.6 g/dL (12.2-16.2); Lymphocytes # (auto) 0.8 10 ^3/uL (0.4-5.4); Lymphocytes % (auto) 7.7 % (10.0-50.0); Mean Corpuscular Hemoglobin 27.7 pg (28.0-32.0); Mean Corpuscular Hgb Conc. 32.8 g/dL (32.0-36.0); Mean Corpuscular Volume 84.5 fL (80.0-100.0); Monocytes # (auto) 0.5 10 ^3/uL (0-1.3); Monocytes % (auto) 5.2 % (0.0-12.0); Neutrophils # (auto) 8.5 10 ^3/uL (1.6-8.6); Neutrophils % (auto) 86.9 % (37.0-80.0); Red Blood Cells 3.82 10^6/uL (4.0-5.20); Red Cell Distribution Width 14.3 % (11.8-14.3); White Blood Cell 9.8 10^3/uL (4.4-10.8)
[2023-07-11 15:56] LABS: Chloride 104 mmol/L (98-107); Potassium 4.3 mmol/L (3.5-5.1)
[2023-07-11 15:57] LABS: Anion Gap 7 (5-15); Calcium 9.1 mg/dL (8.7-10.4); Carbon Dioxide 22 mmol/L (20-30)
[2023-07-11 16:02] LABS: BUN/Creatinine Ratio 17.1 (10.0-20.0); Blood Urea Nitrogen 18 mg/dL (9-23); Glucose 301 mg/dL (74-106); Magnesium 1.9 mg/dL (1.6-2.6)
[2023-07-11 16:05] LABS: Sodium 133 mmol/L (136-145)
[2023-07-12 08:00] VITALS: PULSE 73
[2023-07-12 09:00] VITALS: BP 140/52; PULSE 75; RESP 19; TEMP 98.7; O2SAT 91
[2023-07-12] MEDS: ENOXAPARIN SOD 40 MG/0.4 ML SYRINGE SC SCH (09:26)
[2023-07-12] MEDS ORDERED: ENO40SY SC (12:04)
[2023-07-12] MEDS ORDERED: HYDR-4902 PO (12:04)
[2023-07-12] MEDS ORDERED: NALO4SPR2 (12:04)
[2023-07-12 12:24] VITALS: BP 135/53; PULSE 63; RESP 19; TEMP 98.1; O2SAT 97
[2023-07-12 17:00] VITALS: BP 118/46; PULSE 62; RESP 19; TEMP 98.4; O2SAT 92
[2023-07-12 20:00] VITALS: BP 118/38; PULSE 59; PULSE 70; RESP 17; TEMP 98
[2023-07-12 21:00] VITALS: BP 118/58; PULSE 59; RESP 17; TEMP 98; O2SAT 95
[2023-07-13 05:00] VITALS: BP 139/50; PULSE 61; RESP 17; TEMP 97.8; O2SAT 99
[2023-07-13 08:00] VITALS: PULSE 60
[2023-07-13 08:57] VITALS: BP 137/49; PULSE 60; RESP 20; TEMP 99; O2SAT 98
[2023-07-13 14:39] VITALS: BP 124/47; PULSE 59; RESP 20
== END 2023-07-13 18:19 | disposition home or self-care (01) | DRG 480 ==
LOC: ER 00:52 → EDBD 00:52 → TELE 03:50 → TELE-CENTR 21:15
PROVIDERS: ADMIT Internal Medicine; ATTEND Internal Medicine
PROC: 0QS604Z Reposition Right Upper Femur with Internal Fixation Device, Open Approach (ICD-10-PCS; principal; 2023-07-10 14:44)
DX: S72.141A Displaced intertrochanteric fracture of right femur, initial encounter for closed fracture (principal); J96.01 Acute respiratory failure with hypoxia; N17.0 Acute kidney failure with tubular necrosis; I13.0 Hypertensive heart and chronic kidney disease with heart failure and stage 1 through stage 4 chronic kidney disease, or unspecified chronic kidney disease; I50.32 Chronic diastolic (congestive) heart failure; W01.0XXA Fall on same level from slipping, tripping and stumbling without subsequent striking against object, initial encounter; F03.90 Unspecified dementia, unspecified severity, without behavioral disturbance, psychotic disturbance, mood disturbance, and anxiety; E78.5 Hyperlipidemia, unspecified; I25.10 Atherosclerotic heart disease of native coronary artery without angina pectoris; E11.65 Type 2 diabetes mellitus with hyperglycemia; N18.9 Chronic kidney disease, unspecified; E11.22 Type 2 diabetes mellitus with diabetic chronic kidney disease; I27.20 Pulmonary hypertension, unspecified; I16.0 Hypertensive urgency; Z82.49 Family history of ischemic heart disease and other diseases of the circulatory system; Y93.89 Activity, other specified; Y92.89 Other specified places as the place of occurrence of the external cause; Y99.8 Other external cause status; Z83.3 Family history of diabetes mellitus; Z86.73 Personal history of transient ischemic attack (TIA), and cerebral infarction without residual deficits; Z79.899 Other long term (current) drug therapy; Z90.710 Acquired absence of both cervix and uterus; Z95.0 Presence of cardiac pacemaker
CPT/HCPCS: 36415; 71045; 73502; 76000; 80048; 80053; 80061; 81001; 82962; 83036; 83735; 83880; 85025; 85610; 85730; 86850; 86900; 86901; 93005; 93306; 96374; 96375; 97110; 97116; 97163; 97530; G0378; J0131; J0171; J1100; J1815; J1885; J2405; J2704; J3490

== ENCOUNTER 2023-07-23 12:17 | Emergency (ER) | payer OTHER ==
[~2023-07-23] VITALS: Ht 152.4 cm; Wt 78.0 kg
[~2023-07-23 12:17] MED LIST changes: +DAPA1TAB4 PO; +DILT120C20 PO; +ENO40SY SC; +ERGO1CAP12 PO; +FER325T PO; +FOLITAB22 PO; -GLIP-204 PO; +HYDR-4491 PO; +HYDR-4902 PO; -HYDR25TA4 PO; +LOSA-535 PO; +MET25T PO; -METO25TA93 PO; +NALO4SPR2; -OXYB15TA12 PO; +OXYB5TAB14 PO; +SIMV10TA20 PO; -SPIR25TA PO; +TIRZ2.5I SC
[2023-07-23 14:33] VITALS: BP 99/40; PULSE 70; RESP 16; TEMP 98.4; O2SAT 90
== END 2023-07-23 14:53 | disposition home or self-care (01) ==
LOC: ER 12:21
DX: S90.821D Blister (nonthermal), right foot, subsequent encounter (principal); I10 Essential (primary) hypertension; E11.9 Type 2 diabetes mellitus without complications; E78.5 Hyperlipidemia, unspecified; F03.90 Unspecified dementia, unspecified severity, without behavioral disturbance, psychotic disturbance, mood disturbance, and anxiety; Z48.00 Encounter for change or removal of nonsurgical wound dressing; Z86.73 Personal history of transient ischemic attack (TIA), and cerebral infarction without residual deficits; Z98.890 Other specified postprocedural states; Z79.899 Other long term (current) drug therapy

== ENCOUNTER 2024-04-10 15:27 | Inpatient (IN) | payer OTHER ==
[~2024-04-10] VITALS: Ht 152.4 cm; Wt 66.7 kg
--- NOTE | 2024-04-10 15:49 | ED.PDOC ---
Altered Mental Status HPI Comments 83-year-old female with PMHx CVA, Dementia, CHF, HTN, DM brought in by EMS presents with a chief complaint of ALOC x onset 1200 today with associated abdominal pain. Per EMS, family of patient last noticed that patient was altered around noon time today. Patient was being seen at a local clinic due to having cloudy urine and suprapubic abdomen region. Patient is normally A&Ox4, but is currently A&Ox1 and not conversing. No other symptoms or modifying factors present at this time. Chief Complaint: ALOC Time Seen by MD: 15:41 Primary Care Provider: TAMIA Reviewed Notes: Medications, Allergies Allergies: Coded Allergies: NO KNOWN ALLERGIES (Unverified , 03/20/23) Home Meds Active Scripts Naloxone HCl (Narcan) 4 Mg/0.1 Ml Spr, 4 MG NA PRN, #1 SPRAY Prov:VANDA PEREZ CRAFT SUPERINTENDENT 07/12/23 Hydrocodone-Acetaminophen (Hydrocodone Bitartrate/AC 5-325 mg) 1 Tab Tab, 1 TAB PO Q6HP PRN for 5 Days, #20 TAB Prov:VANDA PEREZ CRAFT SUPERINTENDENT 07/12/23 Enoxaparin Sodium (Lovenox) 40 Mg/0.4 Ml Ij, 40 MG SC DAILY for 7 Days, #7 INJ Prov:VANDA PEREZ CRAFT SUPERINTENDENT 07/12/23 Reported Medications Simvastatin (Simvastatin) 10 Mg Tab, 5 MG PO DAILY 07/10/23 Ergocalciferol (Vitamin D) 50,000 Unit Cap, 1 CAP PO QWEEKLY 07/10/23 Dapagliflozin Propanediol (Farxiga) 10 Mg Tab, 1 TAB PO DAILY 07/10/23 Tirzepatide (Mounjaro) 2.5 Mg/0.5 Ml Inj, SC 07/10/23 Diltiazem Hcl (Diltiazem Hcl Er) 120 Mg Cap, 1 CAP PO DAILY 07/10/23 Oxybutynin Chloride (Oxybutynin Chloride) 5 Mg Tab, 1 TAB PO DAILY 07/10/23 Metoprolol Tartrate (Lopressor) 25 Mg Tb, 1 TAB PO DAILY, TAB 0 Refills 07/10/23 Furosemide (Furosemide) 20 Mg Tab, 1 TAB PO DAILY, #90 TAB 1 Refill 07/08/23 Folic Tljb-Ejtyyabymt-Iptqzzpi (Folbic) Tab, 1 TAB PO DAILY, #90 TAB 1 Refill 07/08/23 Ferrous Sulfate (FERROUS SULFATE) 325 Mg Tb, 1 TAB PO BID 07/08/23 Hydroxychloroquine Sulfate (PLAQUENIL) 200 Mg Tab, 1 TAB PO DAILY 07/08/23 Losartan Potassium (Losartan Potassium) 100 Mg Tab, 100 MG PO DAILY for 30 Days, MG 07/08/23 Sertraline Hcl (Sertraline Hcl) 25 Mg Tab, 1 TAB PO DAILY for DEPRESSION 03/21/23 Aspirin (Aspirin) 81 Mg Tab, 1 TAB PO DAILY for HEART DISEASE 03/21/23 Cyanocobalamin (Vitamin B12) 1,000 Mcg Tab, 1 TAB PO DAILY for SUPPLEMENT 03/20/23 Sitagliptin Phosphate (Januvia) 100 Mg Tab, 1 TAB PO DAILY for DIABETES 10/13/17 Omeprazole (Gnp Omeprazole) 20 Mg Tab, 1 TAB PO QAM for GERD 10/13/17 Gabapentin (Gabapentin) 300 Mg Cap, 1 CAP PO BID for NEUROPATHY 10/13/17 Information Source: Emergency Med Personnel Mode of Arrival: EMS Severity: Moderate, Unable to Care for Self Timing: Hours Duration: Since onset Prehospital treatment: None Quality: Change in Behavior, Confusion Recent: Urinary Symptoms History of: Diabetes Past Medical History PAST MEDICAL HISTORY: CVA, Dementia, DM, High Lipids, HTN Surgical History: Hysterectomy OIL BURNER JOURNEYMAN History: Denies all OIL BURNER JOURNEYMAN Hx Family History Family History: Reviewed,noncontributory to illness, Family hx of DM Social History Smoker: Non-Smoker Alcohol: Denies ETOH Use Drugs: Denies Drug Use Lives In: Home Constitutional: denies: chills, diaphoresis, fatigue, fever, malaise, sweats, weakness, others EENTM: denies: blurred vision, double vision, ear bleeding, ear discharge, ear drainage, ear pain, ear ringing, eye pain, eye redness, hearing loss, mouth pain, mouth swelling, nasal discharge, nose bleeding, nose congestion, nose pain, photophobia, tearing, throat pain, throat swelling, voice changes, others Respiratory: denies: cough, hemoptysis, orthopnea, SOB at rest, shortness of breath, SOB with excertion, stridor, wheezing, others Cardiovascular: denies: chest pain, dizzy spells, diaphoresis, Dyspnea on exertion, edema, irregular heart beat, left arm pain, lightheadedness, palpitations, PND, syncope, others Gastrointestinal: reports: abdominal pain; denies: abdomen distended, blood streaked bowels, constipated, diarrhea, dysphagia, difficulty swallowing, hematemesis, melena, nausea, poor appetite, poor fluid intake, rectal bleeding, rectal pain, vomiting, others Genitourinary: denies: abnormal vagina bleeding, burning, dyspareunia, dysuria, flank pain, frequency, hematuria, incontinence, pain, , vagina discharge, urgency, others Neurological: denies: dizziness, fainting, headache, left sided numbness, left sided weakness, numbness, paresthesia, pre-existing deficit, right sided numbness, right sided weakness, seizure, speech problems, tingling, tremors, weakness, others Musculoskeletal: denies: back pain, gout, joint pain, joint swelling, muscle pain, muscle stiffness, neck pain, others Integumetry: denies: bruises, change in color, change in hair/nails, dryness, laceration, lesions, lumps, rash, wounds, others Allergic/Immunocompromised: denies: Difficulty Healing, Frequent Infections, Hives, Itching, others Hematologic/Lymphatic: denies: anemia, blood clots, easy bleeding, easy bruising, swollen glands, others Endocrine: denies: excessive hunger, excessive sweating, excessive thirst, excessive urination, flushing, intolerance to cold, intolerance to heat, unexplained weight gain, unexplained weight loss, others Psychiatric: denies: anxiety, bipolar disorder, depression, hopeless, panic disorder, schizophrenia, sleepless, suicidal, others Unable to Obtain due to: Altered Mental Status All Other Systems: Reviewed and Negative Physical Exam General Appearance: Moderate Distress, Normal HEENT: Normal ENT Inspection, Pharynx Normal, TMs Normal Neck: Full Range of Motion, Non-Tender, Normal, Normal Inspection Respiratory: Chest Non-Tender, Lungs Clear, No Accessory Muscle Use, No Respiratory Distress, Normal Breath Sounds Cardiovascular: No Edema, No JVD, No Murmur, No Gallop, Normal Peripheral Pulses, Regular Rate/Rhythm Breast Exam: Deferred Gastrointestinal: No Organomegaly, Non Tender, No Pulsatile Mass, Normal Bowel Sounds, Soft Genitalia: Deferred Pelvic: Deferred Rectal: Deferred Extremities: No calf tenderness, Normal capillary refill, Normal inspection, Normal range of motion, Non-tender, No pedal edema Neurologic: Disoriented Cerebellar Function: NOT DONE Reflexes: NOT DONE Skin: Dry, Normal Color Peripheral Pulses: 3+ Radial (R), 3+ Radial (L) Lymphatic: NOT DONE Was a procedure done? Was a procedure done?: No Differential Diagnosis (ALOC) Differential Diagnosis: Hypoglycemia, Encephalopathy X-Ray, Labs, Meds, VS Patient disoriented. Able to answering name only. Strong cardiac history. Vitals stable. Abdomen is soft. Has been normal prior to noon. Family noticed her to be altered while going to her physician's office. Continue cardiac monitoring. Time of 1ST Reevaluation: 16:11 Reevaluation 1ST: Unchanged Patient Education/Counseling: Other (ALTERED LEVEL OF CONSCIOUSNESS) Family Education/Counseling: No Family Present Departure 1 Departure Time of Disposition: 15:56 Impression: Primary Impression: Metabolic encephalopathy Disposition: ADMITTED INPATIENT Admit to: Med Surg Condition: Guarded Critical Care Note Critical Care Time?: No Stability Stability form required: No Heart Score Heart Score: Heart Score Response (Comments) Value History Slightly Suspicious 0 EKG Normal 0 Age >65 2 Risk Factors >3 or Hx ASHD 2 Troponin Normal limit 0 Total 4 I personally scribed for ZAYRA JIMENEZ MD ([email or web address]) on 04/10/24 at 15:49. Electronically submitted by Iván Perez ([email or web address]). ZAYRA JIMENEZ MD Apr 10, 2024 15:49
--- NOTE | 2024-04-10 16:05 | DVH ---
Procedure: CT HEAD WITHOUT CONTRAST Study Date and Requested Time: 04/10/2024 03:47 PM History: altered Comparison: None Dose: CTDI: 59.69 mGy DLP: 1056.76 mGycm Technique: Multiplanar images obtained through the brain without intravenous contrast. Findings: Moderate diffuse brain atrophy. Uerq-yh-fsehkszi frontal lobe predominant periventricular deep white matter hypodensities which may represent chronic small-vessel ischemic changes. No hemorrhages, masses, mass effect, midline shift, herniation or cytotoxic edema following a large v ascular territory. No intra-axial or extra-axial fluid collections. No evidence of hydrocephalus. The basal cisterns are patent. Nonspecific partially empty sella. The cerebellar tonsils are in normal position. The cerebellum is u nremarkable. The orbits and globes are unremarkable. Mucoperiosteal thickening of bilateral sphenoid sinuses parti al opacification of the right mastoid. Otherwise, the visualized paranasal sinuses and mastoids are clear. There are no worrisome calvarial lesions. Impression: No evidence of acute intracranial abnormality. Bilateral sphenoid and right mastoid disease.
--- NOTE | 2024-04-10 16:08 | DVH ---
CHEST RADIOGRAPH Indication: sob Technique: Single frontal view of the chest was obtained Comparison: XY CHEST XRAY 1 VIEW on DOS: 07/08/23, CHEST PORTABLE on DOS: 09/05/19 FINDINGS: Lines and Tubes: None. Left-sided approach dual lead pacemaker terminating within right atrium and r ight ventricle. Lungs: No focal consolidation. Diffuse interstitial prominence. Indistinctness of the left hemidiaph ragm. No pneumothorax. Cardiomediastinal contours: Heart size is within normal limits with ybki-mv-joygqyai atherosclerotic calcification and uncoiling of the aorta. Bones: No acute osseous abnormality. IMPRESSION: Mild pulmonary vascular congestion. Possible trace left-sided pleural effusion.
[2024-04-10 16:32] LABS: Basophils # (auto) 0 10 ^3/uL (0-0.2); Basophils % (auto) 0.4 % (0.0-2.0); Eosinophils # (auto) 0.1 10 ^3/uL (0-0.8); Eosinophils % (auto) 1.2 % (0.0-7.0); Hematocrit 40.4 % (36.0-46.0); Hemoglobin 13.3 g/dL (12.2-16.2); Lymphocytes # (auto) 2.1 10 ^3/uL (0.4-5.4); Lymphocytes % (auto) 23.7 % (10.0-50.0); Mean Corpuscular Hemoglobin 26.9 pg (28.0-32.0); Mean Corpuscular Hgb Conc. 32.8 g/dL (32.0-36.0); Mean Corpuscular Volume 82.1 fL (80.0-100.0); Monocytes # (auto) 0.7 10 ^3/uL (0-1.3); Monocytes % (auto) 8.3 % (0.0-12.0); Neutrophils # (auto) 5.9 10 ^3/uL (1.6-8.6); Neutrophils % (auto) 66.4 % (37.0-80.0); Nucleated Red Blood Cells % 0.1 %; Platelet Count (auto) 358 10^3/uL (140-450); Red Blood Cells 4.92 10^6/uL (4.0-5.20); Red Cell Distribution Width 14.2 % (11.8-14.3); White Blood Cell 8.8 10^3/uL (4.4-10.8)
[2024-04-10 16:42] LABS: Chloride 100 mmol/L (98-107)
[2024-04-10 16:43] LABS: Anion Gap 9 (5-15); Calcium 9.5 mg/dL (8.7-10.4); Carbon Dioxide 22 mmol/L (20-31)
[2024-04-10 16:48] LABS: BUN/Creatinine Ratio 14.9 (10.0-20.0); Blood Alcohol 4.4 mg/dL (<10)
[2024-04-10 16:50] LABS: Blood Urea Nitrogen 30 mg/dL (9-23); Glucose 280 mg/dL (74-106); Sodium 131 mmol/L (136-145)
--- NOTE | 2024-04-10 19:08 | ECG ---
[facility] Test Date: 2024-04-10 Test Time: 15:37:09 Pat Name: GABRIELA GARNER Department: ED Room: 0281T Gender: F Resistor Coater: PATRICK : 1940 Requested By: ZAYRA JIMENEZ Order Number: [id number] Reading MD: Josh Eubanks Measurements Intervals [place] Rate: 60 P: 0 AK: 192 QRS: -39 QRSD: 96 T: 72 QT: 457 QTc: 457 Interpretive Statements Atrial-paced rhythm Left axis deviation Anterior infarct, old ST elevation, consider inferior injury Electronically Signed On 04-11-2024 22:19:21 PST by Josh Eubanks Please click the below link to view image of tracing.
[2024-04-11] VITALS (7 sets, daily range): BP systolic 114–133; BP diastolic 55–67; PULSE 73–80; RESP 14–19; TEMP 98.5–99.2; O2SAT 95–97
[2024-04-11] MEDS ORDERED: ACETAMINOPHEN 325 MG TAB PO PRN (00:30)
[2024-04-11] MEDS ORDERED: NITROGLYCERIN 0.4 MG SL TAB SL PRN (00:30)
[2024-04-11] MEDS ORDERED: MORPHINE SULFATE INJ 2 MG/ml SYRG IV PRN (00:30)
--- NOTE | 2024-04-11 00:44 | DVHHPRES ---
History of Present Illness Resident Creating Document: CHIN STRAUSS RESIDENT History of Present Illness GABRIELA GARNER is a 83-year-old female with PMHx CVA, Dementia, CHF, HTN, DM brought in by EMS presents with a chief complaint of ALOC since noon today. Patient is poor historian, history is obtained from daughter, reported last month she admitted in the [facility] with a UTI and not being treated well, patient continuously being having urinary symptoms and cloudy urine patient went to clinic due to cloudy urine and mild suprapubic pain. But patient has been more altered since today afternoon which prompted them to visit ED. denies fever, nausea, vomiting, chest pain, dyspnea, and other acute associated symptoms PMH: CVA, Dementia, CHF, HTN, DM, HLD PSH: Hysterectomy Family history: Reviewed, noncontributory Social history: Lives with daughter. Denies smoking, alcohol and other drug abuse Allergies: No known allergies Review of Systems Review of Systems Unable to obtain ROS due to patient's clinical status. Allergies: Coded Allergies: NO KNOWN ALLERGIES (Unverified , 03/20/23) Medications Current Medications Medications Dose Ordered Sig/Justin Route Start Time Stop Time Status Last Admin Dose Admin Sodium Chloride 10 ml Q8HR IV 04/11/24 06:00 Enoxaparin Sodium 30 mg DAILY SC 04/11/24 10:00 Acetaminophen 650 mg Q6HP PRN PO 04/11/24 00:30 Nitroglycerin 0.4 mg Q5MINP PRN SL 04/11/24 00:30 Morphine Sulfate 2 mg Q30M PRN IV 04/11/24 00:30 Ceftriaxone Sodium 50 ml @ 100 mls/hr Q24H IV 04/11/24 01:00 Exam Vital Signs Vital Signs Date Time Temp Pulse Resp B/P (MAP) Pulse Ox O2 Delivery O2 Flow Rate FiO2 04/10/24 23:32 97.8 60 18 121/34 (63) 97 97.8 Exam Pt is lying on bed, limited exam due to patient's clinical status General Appearance: Altered, Oriented X1, HEENT: Atraumatic, Mucous membranes moist/pink Respiratory: Clear to auscultation, Normal air movement Cardiovascular: Regular rate, Normal S1, Normal S2 Abdominal: Active bowel sounds, Soft, no distention Extremities: No edema, Normal pulses, No tenderness/swelling Skin: No Significant rash, except past surgical scars Neuro: Altered, oriented x1 Nurse was there as sharperone during examination Labs/Xrays Labs Test 04/10/24 16:05 Range/Units White Blood Count 8.8 4.4-10.8 10^3/uL Red Blood Count 4.92 4.0-5.20 10^6/uL Hemoglobin 13.3 12.2-16.2 g/dL Hematocrit 40.4 36.0-46.0 % Mean Corpuscular Volume 82.1 80.0-100.0 fL Mean Corpuscular Hemoglobin 26.9 L 28.0-32.0 pg Mean Corpuscular Hemoglobin Concent 32.8 32.0-36.0 g/dL Red Cell Distribution Width 14.2 11.8-14.3 % Platelet Count 358 140-450 10^3/uL Mean Platelet Volume 7.1 6.9-10.8 fL Neutrophils (%) (Auto) 66.4 37.0-80.0 % Lymphocytes (%) (Auto) 23.7 10.0-50.0 % Monocytes (%) (Auto) 8.3 0.0-12.0 % Eosinophils (%) (Auto) 1.2 0.0-7.0 % Basophils (%) (Auto) 0.4 0.0-2.0 % Neutrophils # (Auto) 5.9 1.6-8.6 10 ^3/uL Lymphocytes # (Auto) 2.1 0.4-5.4 10 ^3/uL Monocytes # (Auto) 0.7 0-1.3 10 ^3/uL Eosinophils # (Auto) 0.1 0-0.8 10 ^3/uL Basophils # (Auto) 0 0-0.2 10 ^3/uL Nucleated Red Blood Cells 0.1 % Sodium Level 131 L 136-145 mmol/L Potassium Level 5.0 3.5-5.1 mmol/L Chloride Level 100 98-107 mmol/L Carbon Dioxide Level 22 20-31 mmol/L Anion Gap 9 5-15 Blood Urea Nitrogen 30 H 9-23 mg/dL Creatinine 2.01 H 0.550-1.02 mg/dL Glomerular Filtration Rate Calc 24 >90 mL/min BUN/Creatinine Ratio 14.9 10.0-20.0 Serum Glucose 280 H 74-106 mg/dL Calcium Level 9.5 8.7-10.4 mg/dL Troponin I High Sensitivity 5 </=34 ng/L Plasma/Serum Blood Alcohol 4.4 <10 mg/dL Assessment/Plan Assessment/Plan # acute toxic or metabolic encephalopathy likely due to UTI # H/O CVA - head CT showed no acute changes # ? Acute complicated UTI - pending urinalysis and urine culture - currently giving Rocephin # CHF not in exacerabation -ordered a BNP -CXR showed mild pulmonary vascular congestion # TERA likely VMN on chronic -monitor lab for now PUD PPX: Not indicated VTE PPX: Lovenox Diet: Cardiac diet Goals of care discussed with the daughter for more than 29 minutes: Full code status Case discussed with Dr. Sorensen, daughter and nurse. Plan discussed with: Patient, Daughter My Orders Orders - CHIN STRAUSS RESIDENT Procedure Category Date Status Time Admit ADMIT 04/11/24 Transmitted 00:18 Allergies GARETT 04/11/24 In Process 00:18 Code Status CODE 04/11/24 Transmitted 00:18 Sodium Chloride Lock PHA 04/11/24 In Process (Saline Lock Ns) 06:00 Fall Risk Precautions GARETT 04/11/[address] 00:18 Complete Blood Count LAB 04/11/24 Logged 04:00 Comprehensive LAB 04/11/24 Logged Metabolic Panel 04:00 Npo (Nothing By DIET 04/11/24 Transmitted Mouth) Diet Breakfast Condition: Stable GARETT 04/11/24 In Process 00:18 Acetaminophen Tablet PHA 04/11/24 In Process (Tylenol Tablet) 00:30 Nitroglycerin PHA 04/11/24 In Process Sublingual (Ntrostat 00:30 Morphine Sulfate PHA 04/11/24 In Process Injection 00:30 Oxygen By Nasal RT 04/11/24 Transmitted Cannula 00:18 Stat Ekg For Chest [facility] 04/11/24 In Process Pain 00:18 Notify Of Changes GARETT 04/11/24 In Process From Base 00:18 Technical Sales Support Manager For GARETT 04/11/24 In Process 24 Hours 00:18 Emergency Dysrhythmia GARETT 04/11/24 In Process Protocol 00:18 Rhythm Strips Once GARETT 04/11/24 In Process Every Shift 00:18 Urinalysis LAB 04/11/24 Logged 00:20 Insert Beasley Catheter [facility] 2/20/25 In Process 00:20 Thyroid Stimulating LAB 04/11/24 Logged Hormone 00:22 Ammonia LAB 04/11/24 Logged 00:22 B-Type Natriuretic LAB 04/11/24 Logged Peptide 00:22 Covid19 Antigen [facility] LAB 04/11/24 Logged Lactic Acid W/ Reflex LAB 04/11/24 Logged Order 00:22 Magnesium LAB 04/11/24 Logged 00:22 Rapid Influenza A&B LAB 04/11/24 Logged 00:22 Ceftriaxone 1gm/50ml PHA 04/11/24 In Process D5w (Rocephin) 01:00 Enoxaparin Sodium PHA 04/11/24 In Process (Lovenox) 10:00 Date of Service: Apr 11, 2024 Billing Provider: MARYJANE SORENSEN MD Common Visit Codes: [id number] INP/OBS CARE (HIGH) Secondary Visit Codes: [id number] CARE PLAN 30 MINUTES CHIN STRAUSS RESIDENT Apr 11, 2024 00:44 MARYJANE SORENSEN MD Apr 11, 2024 13:03
[2024-04-11] MEDS ORDERED: cefTRIAXone 1GM/50ML D5W 50 ML IV SCH (01:00)
[2024-04-11 05:47] LABS: Hemoglobin 14.1 g/dL (12.2-16.2); Mean Corpuscular Hemoglobin 26.8 pg (28.0-32.0); Mean Corpuscular Hgb Conc. 32.9 g/dL (32.0-36.0); Mean Corpuscular Volume 81.5 fL (80.0-100.0); Red Blood Cells 5.27 10^6/uL (4.0-5.20)
[2024-04-11 05:50] LABS: Platelet Count (auto) 383 10^3/uL (140-450); Red Cell Distribution Width 14.4 % (11.8-14.3); White Blood Cell 9.7 10^3/uL (4.4-10.8)
[2024-04-11 05:59] LABS: Basophils % (manual) 0 (0.0-2.0); Blast Cells 0; Eosinophils % (manual) 0 (0-7); Metamyelocytes % 0; Monocytes % (manual) 0 (0-12); Myelocytes % 0; Promyelocytes % 0; Reactive Lymphocytes 0
[2024-04-11 06:02] LABS: Alkaline Phosphatase 91 U/L (46-116); Anion Gap 12 (5-15); Calcium 10.1 mg/dL (8.7-10.4); Potassium 4.8 mmol/L (3.5-5.1)
[2024-04-11 06:03] LABS: BUN/Creatinine Ratio 14.2 (10.0-20.0)
[2024-04-11 06:05] LABS: Albumin 4.1 g/dL (3.2-4.8); Bilirubin, Total 0.5 mg/dL (0.2-1.0); Total Protein 7.2 g/dL (5.7-8.2)
[2024-04-11 06:20] LABS: Alanine Aminotransferase < 9 U/L (7-40); Aspartate Aminotransferase < 8 U/L (13-40); Blood Urea Nitrogen 33 mg/dL (9-23); Carbon Dioxide 20 mmol/L (20-31); Chloride 98 mmol/L (98-107); Glucose 290 mg/dL (74-106); Sodium 130 mmol/L (136-145)
[2024-04-11 06:54] LABS: Band Neutrophils % (manual) 1; Lymphocytes % (manual) 38 (10.0-50.0); Platelet Estimate Adequate
[2024-04-11] MEDS: ENOXAPARIN SOD 30 MG/0.3 ML SYRINGE SC SCH (10:15)
[2024-04-11] MEDS: cefTRIAXone 1GM/50ML D5W 50 ML IV SCH (10:46)
[2024-04-11 11:12] LABS: Urine Bacteria FEW /hpf (None Seen); Urine Blood 2+ /uL (Negative); Urine Budding Yeast MODERATE /hpf (None Seen); Urine Protein, UAD 2+ (Negative); Urine Specific Gravity 1.011 (1.001-1.035); Urine Squamous Epithelial Cell FEW /hpf (<5); Urine Urobilinogen Normal (Negative); Urine WBC 4112 /HPF (0-5); Urine WBC Clumps PRESENT /hpf (None Seen)
[2024-04-11 11:14] LABS: Urine Clarity Cloudy (Clear); Urine Color Yellow (Yellow)
[2024-04-11] MEDS: SODIUM CHLOR 0.9% PF (SALINE LOCK) 10ML VIAL/SYR IV SCH (12:32)
[2024-04-11 12:43] LABS: Rapid Influenza A Negative (Negative); Rapid Influenza B Negative (Negative)
[2024-04-11 12:43] LABS: COVID19 ANTIGEN SOFIA FIA NEGATIVE (NEGATIVE)
[2024-04-11] MEDS ORDERED: ONDANSETRON HCL 4 MG/2 ML VIAL IV PRN (13:45)
[2024-04-11] MEDS: FLUCONAZOLE 200MG/100ML 100 ML IV ONE (13:51)
[2024-04-11] MEDS: SODIUM CHLORIDE 0.9% 1,000 ML IV SCH (13:53)
[2024-04-12] VITALS (8 sets, daily range): BP systolic 99–136; BP diastolic 52–71; PULSE 62–88; RESP 16–19; TEMP 97.4–99.2; O2SAT 96–100
[2024-04-12 06:14] LABS: Basophils # (auto) 0.1 10 ^3/uL (0-0.2); Eosinophils # (auto) 0.1 10 ^3/uL (0-0.8); Lymphocytes # (auto) 2.2 10 ^3/uL (0.4-5.4); Monocytes # (auto) 0.7 10 ^3/uL (0-1.3); Nucleated Red Blood Cells % 0.1 %
[2024-04-12 06:17] LABS: Basophils % (auto) 0.9 % (0.0-2.0); Eosinophils % (auto) 1.8 % (0.0-7.0); Hematocrit 35.2 % (36.0-46.0); Lymphocytes % (auto) 30.6 % (10.0-50.0); Mean Corpuscular Hemoglobin 27.8 pg (28.0-32.0); Mean Corpuscular Hgb Conc. 34.1 g/dL (32.0-36.0); Mean Corpuscular Volume 81.5 fL (80.0-100.0); Monocytes % (auto) 9.9 % (0.0-12.0); Neutrophils # (auto) 4.1 10 ^3/uL (1.6-8.6); Neutrophils % (auto) 56.8 % (37.0-80.0); Platelet Count (auto) 305 10^3/uL (140-450); Red Blood Cells 4.31 10^6/uL (4.0-5.20); Red Cell Distribution Width 13.8 % (11.8-14.3); White Blood Cell 7.2 10^3/uL (4.4-10.8)
[2024-04-12 06:48] LABS: Albumin 3.3 g/dL (3.2-4.8); Alkaline Phosphatase 76 U/L (46-116); Anion Gap 11 (5-15); BUN/Creatinine Ratio 17.7 (10.0-20.0); Bilirubin, Total 0.3 mg/dL (0.2-1.0); Calcium 9.2 mg/dL (8.7-10.4); Carbon Dioxide 20 mmol/L (20-31); Chloride 104 mmol/L (98-107); Magnesium 2.1 mg/dL (1.6-2.6); Potassium 4.1 mmol/L (3.5-5.1); Total Protein 5.9 g/dL (5.7-8.2)
[2024-04-12 06:50] LABS: Alanine Aminotransferase < 9 U/L (7-40); Aspartate Aminotransferase 8 U/L (13-40); Blood Urea Nitrogen 33 mg/dL (9-23); Glucose 175 mg/dL (74-106); Sodium 135 mmol/L (136-145)
[2024-04-12] MEDS: FLUCONAZOLE 200MG/100ML 100 ML IV SCH (09:29)
--- NOTE | 2024-04-12 20:51 | DVHPN2 ---
Subjective Better More alert and oriented Changes from previous H/P or p: Changes Objective Vitals Vital Signs Date Time Temp Pulse Resp B/P (MAP) Pulse Ox O2 Delivery O2 Flow Rate FiO2 04/12/24 17:00 98.1 86 19 112/69 (83) 98 98.1 04/12/24 08:00 Room Air* 0 21 Intake/Output Intake and Output 04/12/24 07:00 Intake Total 475 ml Output Total 1675 ml Balance -1200 ml Intake Oral 125 ml IV Total 350 ml Output Urine Total 1675 ml General Appearance: Alert, Other Lungs: Clear to auscultation, Normal air movement Cardiovascular: Regular rate, Normal S1 Abdomen: Normal bowel sounds, Soft Extremities: No edema Medications Current Medications Medications Dose Ordered Sig/Justin Route Start Time Stop Time Status Last Admin Dose Admin Sodium Chloride 10 ml Q8HR IV 04/11/24 06:00 04/12/24 09:30 10 ML Enoxaparin Sodium 30 mg DAILY SC 04/11/24 10:00 04/12/24 08:19 30 MG Acetaminophen 650 mg Q6HP PRN PO 04/11/24 00:30 Nitroglycerin 0.4 mg Q5MINP PRN SL 04/11/24 00:30 Morphine Sulfate 2 mg Q30M PRN IV 04/11/24 00:30 Ceftriaxone Sodium 50 ml @ 100 mls/hr DAILY@0900 IV 04/11/24 10:23 04/12/24 08:17 100 MLS/HR Sodium Chloride 1,000 ml @ 60 mls/hr [id number] IV 04/11/24 13:45 04/12/24 05:48 60 MLS/HR Fluconazole 100 ml @ 100 mls/hr DAILY IV 04/12/24 10:00 04/12/24 09:29 100 MLS/HR Ondansetron HCl 4 mg Q4HPRN PRN IV 04/11/24 13:45 Laboratory Results Laboratory Tests 04/12/24 05:54 Chemistry Test 04/12/24 05:54 Albumin 3.3 g/dL (3.2-4.8) Calcium Level 9.2 mg/dL (8.7-10.4) Magnesium Level 2.1 mg/dL (1.6-2.6) Total Protein 5.9 g/dL (5.7-8.2) LFT Test 04/12/24 05:54 Alanine Aminotransferase (ALT) < 9 U/L (7-40) Alkaline Phosphatase 76 U/L (46-116) Aspartate Amino Transferase (AST) 8 U/L (13-40) L Total Bilirubin 0.3 mg/dL (0.2-1.0) Urinalysis Test 04/11/24 00:20 Urine Color Yellow (Yellow) Urine Clarity Cloudy (Clear) H Urine pH 6.0 (5.0-9.0) Urine Specific [place] 1.011 (1.001-1.035) Urine Protein 2+ (Negative) H Urine Ketones Negative (Negative) Urine Blood 2+ /uL (Negative) H Urine Nitrite Negative (Negative) Urine Bilirubin Negative (Negative) Urine Urobilinogen Normal mg/dL (Negative) Urine Leukocyte Esterase 3+ /uL (Negative) Urine RBC 248 /hpf (0 - 4) Urine WBC Clumps Present /hpf (None Seen) Urine Microscopic WBC 4112 /HPF (0-5) H Urine Squamous Epithelial Cells Few /hpf (<5) Urine Bacteria Few /hpf (None Seen) H Urine Yeast (Budding) Moderate /hpf (None Seen) Urine Glucose 2+ mg/dL (Normal) H Microbiology Microbiology Date/Time Source Procedure Growth Status 04/11/24 10:59 Urine - [place] Urine Culture - Preliminary Resulted Assessment/Plan Assessment/Plan Acute metabolic encephalopathy due to UTI UTI w yeast Dementia 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 CKD h/o CHF Hyponatremia PLAN: IVF: NS IV Diflucan Rocephin Full code Discussed with daughter at the bedside Advanced directives and care plan discussed x 20 minutes Plan discussed with: Patient, Daughter My Orders Orders - DEYANIRA OCHOA MD Procedure Category Date Status Time * Wound Consult CONS 04/12/24 Transmitted * Dietary Consult CONS 04/12/24 Transmitted 09:48 Cleanse Wound With GARETT 04/12/24 In Process Wound Clean 16:00 Specialty Bed Mattress ORDERS 04/12/24 Transmitted 16:00 Foam Cradle To ORDERS 04/12/24 Transmitted Bilateral Feet 16:00 Date of Service: Apr 12, 2024 Billing Provider: DEYANIRA OCHOA MD Common Visit Codes: [id number] INP/OBS CARE(HIGH) Secondary Visit Codes: [id number] CARE PLAN 30 MINUTES DEYANIRA OCHOA MD Apr 12, 2024 20:51
[2024-04-13] VITALS (8 sets, daily range): BP systolic 114–147; BP diastolic 62–82; PULSE 60–108; RESP 16–20; TEMP 97.5–98.7; O2SAT 95–98
[2024-04-13 07:26] LABS: Basophils # (auto) 0.1 10 ^3/uL (0-0.2); Basophils % (auto) 0.9 % (0.0-2.0); Eosinophils # (auto) 0.2 10 ^3/uL (0-0.8); Hematocrit 36.6 % (36.0-46.0); Lymphocytes # (auto) 2.3 10 ^3/uL (0.4-5.4); Mean Corpuscular Hgb Conc. 32.7 g/dL (32.0-36.0)
[2024-04-13 07:27] LABS: Eosinophils % (auto) 2.9 % (0.0-7.0); Mean Corpuscular Hemoglobin 26.9 pg (28.0-32.0); Mean Corpuscular Volume 82.1 fL (80.0-100.0); Monocytes # (auto) 0.6 10 ^3/uL (0-1.3); Monocytes % (auto) 10.4 % (0.0-12.0); Neutrophils % (auto) 48.8 % (37.0-80.0); Nucleated Red Blood Cells % 0.1 %; Platelet Count (auto) 304 10^3/uL (140-450); Red Blood Cells 4.46 10^6/uL (4.0-5.20); Red Cell Distribution Width 13.8 % (11.8-14.3); White Blood Cell 6.1 10^3/uL (4.4-10.8)
[2024-04-13 07:31] LABS: Anion Gap 10 (5-15); Potassium 4.2 mmol/L (3.5-5.1); Sodium 137 mmol/L (136-145)
[2024-04-13 07:32] LABS: Calcium 9.1 mg/dL (8.7-10.4)
[2024-04-13 07:37] LABS: Magnesium 1.9 mg/dL (1.6-2.6)
[2024-04-13 07:45] LABS: Blood Urea Nitrogen 29 mg/dL (9-23); Carbon Dioxide 20 mmol/L (20-31); Chloride 107 mmol/L (98-107); Glucose 140 mg/dL (74-106)
--- NOTE | 2024-04-13 13:13 | DVHPN2 ---
Subjective I am assuming the care of the patient from today onwards. Patient was admitted for altered mental status and UTI. 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 General Appearance: Alert, Other Lungs: Clear to auscultation, Normal air movement Cardiovascular: Regular rate, Normal S1 Abdomen: Normal bowel sounds, Soft Extremities: No edema Medications Current Medications Medications Dose Ordered Sig/Justin Route Start Time Stop Time Status Last Admin Dose Admin Sodium Chloride 10 ml Q8HR IV 04/11/24 06:00 04/13/24 10:01 10 ML Enoxaparin Sodium 30 mg DAILY SC 04/11/24 10:00 04/13/24 07:25 30 MG Acetaminophen 650 mg Q6HP PRN PO 04/11/24 00:30 Nitroglycerin 0.4 mg Q5MINP PRN SL 04/11/24 00:30 Morphine Sulfate 2 mg Q30M PRN IV 04/11/24 00:30 Ceftriaxone Sodium 50 ml @ 100 mls/hr DAILY@0900 IV 04/11/24 10:23 04/13/24 07:22 100 MLS/HR Sodium Chloride 1,000 ml @ 60 mls/hr [id number] IV 04/11/24 13:45 04/12/24 05:48 60 MLS/HR Fluconazole 100 ml @ 100 mls/hr DAILY IV 04/12/24 10:00 04/13/24 10:00 100 MLS/HR Ondansetron HCl 4 mg Q4HPRN PRN IV 04/11/24 13:45 Laboratory Results Laboratory Tests 04/13/24 06:40 Chemistry Test 04/13/24 06:40 Calcium Level 9.1 mg/dL (8.7-10.4) Magnesium Level 1.9 mg/dL (1.6-2.6) Urinalysis Test 04/11/24 00:20 Urine Color Yellow (Yellow) Urine Clarity Cloudy (Clear) H Urine pH 6.0 (5.0-9.0) Urine Specific [place] 1.011 (1.001-1.035) Urine Protein 2+ (Negative) H Urine Ketones Negative (Negative) Urine Blood 2+ /uL (Negative) H Urine Nitrite Negative (Negative) Urine Bilirubin Negative (Negative) Urine Urobilinogen Normal mg/dL (Negative) Urine Leukocyte Esterase 3+ /uL (Negative) Urine RBC 248 /hpf (0 - 4) Urine WBC Clumps Present /hpf (None Seen) Urine Microscopic WBC 4112 /HPF (0-5) H Urine Squamous Epithelial Cells Few /hpf (<5) Urine Bacteria Few /hpf (None Seen) H Urine Yeast (Budding) Moderate /hpf (None Seen) Urine Glucose 2+ mg/dL (Normal) H Microbiology Microbiology Date/Time Source Procedure Growth Status 04/11/24 10:59 Urine - [place] Urine Culture - Final Complete Assessment/Plan Assessment/Plan 80-year-old female with a known history of Alzheimer dementia, hypertension, congestive heart failure initially presented to the hospital with altered mental status and cloudy urine found to have 1. Acute metabolic/septic encephalopathy, currently improving 2. Urinary tract infection 3. Acute kidney injury suspected secondary to vasomotor nephropathy currently improving 4. Hyponatremia suspect hypovolemic currently improving 5. Alzheimer dementia -continue antibiotics, antifungal, physical therapy evaluation and treatment, discharge plan. Plan discussed with: Patient, Other Date of Service: Apr 13, 2024 Billing Provider: SARA PIÑA MD Common Visit Codes: [id number] INP/OBS CARE(MOD) SARA PIÑA MD Apr 13, 2024 13:13
[2024-04-14] VITALS (7 sets, daily range): BP systolic 136–157; BP diastolic 65–80; PULSE 86–100; RESP 16–19; TEMP 97.7–99.3; O2SAT 96–99
[2024-04-14] MEDS: Glucerna Carbsteady SHAKE Vanilla 8oz PO SCH (12:00)
[2024-04-14] MEDS ORDERED: CEFD300C2 PO (16:55)
--- NOTE | 2024-04-14 17:01 | DVHDS2 ---
Discharge Summary Date of Admission Apr 11, 2024 at 00:18 Date of Discharge: Apr 14, 2024 Labs/Diagnostic Data: Laboratory Results Test 04/13/24 06:40 04/12/24 05:54 04/11/24 05:31 04/11/24 00:42 White Blood Count 6.1 10^3/uL (4.4-10.8) Red Blood Count 4.46 10^6/uL (4.0-5.20) Hemoglobin 12.0 g/dL (12.2-16.2) Hematocrit 36.6 % (36.0-46.0) Mean Corpuscular Volume 82.1 fL (80.0-100.0) Mean Corpuscular Hemoglobin 26.9 pg (28.0-32.0) Mean Corpuscular Hemoglobin Concent 32.7 g/dL (32.0-36.0) Red Cell Distribution Width 13.8 % (11.8-14.3) Platelet Count 304 10^3/uL (140-450) Mean Platelet Volume 7.2 fL (6.9-10.8) Neutrophils (%) (Auto) 48.8 % (37.0-80.0) Lymphocytes (%) (Auto) 37.0 % (10.0-50.0) Monocytes (%) (Auto) 10.4 % (0.0-12.0) Eosinophils (%) (Auto) 2.9 % (0.0-7.0) Basophils (%) (Auto) 0.9 % (0.0-2.0) Neutrophils # (Auto) 3.0 10 ^3/uL (1.6-8.6) Lymphocytes # (Auto) 2.3 10 ^3/uL (0.4-5.4) Monocytes # (Auto) 0.6 10 ^3/uL (0-1.3) Eosinophils # (Auto) 0.2 10 ^3/uL (0-0.8) Basophils # (Auto) 0.1 10 ^3/uL (0-0.2) Nucleated Red Blood Cells 0.1 % Sodium Level 137 mmol/L (136-145) Potassium Level 4.2 mmol/L (3.5-5.1) Chloride Level 107 mmol/L (98-107) Carbon Dioxide Level 20 mmol/L (20-31) Anion Gap 10 (5-15) Blood Urea Nitrogen 29 mg/dL (9-23) Creatinine 1.26 mg/dL (0.550-1.02) Glomerular Filtration Rate Calc 42 mL/min (>90) BUN/Creatinine Ratio 23.0 (10.0-20.0) Serum Glucose 140 mg/dL (74-106) Calcium Level 9.1 mg/dL (8.7-10.4) Magnesium Level 1.9 mg/dL (1.6-2.6) Total Bilirubin 0.3 mg/dL (0.2-1.0) Aspartate Amino Transferase (AST) 8 U/L (13-40) Alanine Aminotransferase (ALT) < 9 U/L (7-40) Alkaline Phosphatase 76 U/L (46-116) Total Protein 5.9 g/dL (5.7-8.2) Albumin 3.3 g/dL (3.2-4.8) Differential Total Cells Counted 100.0 (100) Neutrophils % (Manual) 61 (37.0-80.0) Band Neutrophils % (Manual) 1 Lymphocytes % (Manual) 38 (10.0-50.0) Monocytes % (Manual) 0 (0-12) Eosinophils % (Manual) 0 (0-7) Basophils % (Manual) 0 (0.0-2.0) Metamyelocytes % (manual) 0 Myelocytes % (Manual) 0 Promyelocytes % (Manual) 0 Blast Cells % (Manual) 0 Reactive Lymphocytes 0 Platelet Estimate Adequate Lactic Acid Level 1.2 mmol/L (0.4-2.0) Ammonia 23 umol/L (11-32) B-Type Natriuretic Peptide 142.16 pg/mL (0-100) Thyroid Stimulating Hormone (TSH) 1.55 uIU/mL (0.55-4.78) Test 04/11/24 00:22 04/11/24 00:20 04/11/24 00:00 04/10/24 16:05 Influenza Type A Antigen Negative (Negative) Influenza Type B Antigen Negative (Negative) Urine Color Yellow (Yellow) Urine Clarity Cloudy (Clear) Urine pH 6.0 (5.0-9.0) Urine Specific [place] 1.011 (1.001-1.035) Urine Protein 2+ (Negative) Urine Ketones Negative (Negative) Urine Blood 2+ /uL (Negative) Urine Nitrite Negative (Negative) Urine Bilirubin Negative (Negative) Urine Urobilinogen Normal mg/dL (Negative) Urine Leukocyte Esterase 3+ /uL (Negative) Urine RBC 248 /hpf (0 - 4) Urine WBC Clumps Present /hpf (None Seen) Urine Microscopic WBC 4112 /HPF (0-5) Urine Squamous Epithelial Cells Few /hpf (<5) Urine Bacteria Few /hpf (None Seen) Urine Yeast (Budding) Moderate /hpf (None Seen) Urine Glucose 2+ mg/dL (Normal) SARS-CoV-2 Antigen (Rapid) Negative (NEGATIVE) Troponin I High Sensitivity 5 ng/L (</=34) Plasma/Serum Blood Alcohol 4.4 mg/dL (<10) Other Laboratory Tests 04/13/24 06:40 Brief Hx & Hospital Course: 80-year-old female with a known history of Alzheimer dementia, hypertension, congestive heart failure initially presented to the hospital with altered mental status and cloudy urine found to have acute metabolic and septic encephalopathy. Patient was found to have urinary tract infection. Patient was given IV antibiotics as well as antifungal. Patient's acute kidney injury suspected secondary to vasomotor nephropathy has been resolved. Patient is currently stable to be discharged back to home with the hospice. Condition at Discharge: Stable Final Diagnosis/Problems List 80-year-old female with a known history of Alzheimer dementia, hypertension, congestive heart failure initially presented to the hospital with altered mental status and cloudy urine found to have 1. Acute metabolic/septic encephalopathy, currently improving 2. Urinary tract infection treated 3. Acute kidney injury suspected secondary to vasomotor nephropathy currently improving 4. Hyponatremia suspect hypovolemic currently improving 5. Alzheimer dementia Discharge Disposition: Hospice - Home SNF Discharge Will this Physician continue t: No Discharge Instruct/Medications Diet: Cardiac 2g Na,low cholest Activity: No Restrictions, As Tolerated Follow Up/Referral: Please follow up with the hospice physician Medications: Cefdinir 300 mg twice a day for three more days Discharge Statement: "Patient was advised to return to the ER or call 911 if any headaches, dizziness, shortness of breath, chest pain, abdominal pain, bleeding, fevers, or worsening of medical condition. Patient was counseled about treatment plan, medications, possible side effects, patientverbalized understanding. All questions were answered to the best of my ability. This discharge took greater then 30 minutes in planning, reviewing documentation, counseling the patient, and discussing with other team members." ASSESSMENT ASSESSMENT Assessment 80-year-old female with a known history of Alzheimer dementia, hypertension, congestive heart failure initially presented to the hospital with altered mental status and cloudy urine found to have 1. Acute metabolic/septic encephalopathy, currently improving 2. Urinary tract infection treated 3. Acute kidney injury suspected secondary to vasomotor nephropathy currently improving 4. Hyponatremia suspect hypovolemic currently improving 5. Alzheimer dementia Date of Service: Apr 14, 2024 Billing Provider: SARA PIÑA MD Common Visit Codes: 20658-IFM/OBS DISCH DAY >30min SARA PIÑA MD Apr 14, 2024 17:01
== END 2024-04-14 20:05 | disposition hospice, home (50) | DRG 757 ==
LOC: ER 15:27 → EDBD 15:27 → OVERFLOW 04-11 00:18 → TELE-WESTW 04-11 15:00
PROVIDERS: ADMIT Internal Medicine; ATTEND Internal Medicine
DX: B37.49 Other urogenital candidiasis (principal); G93.41 Metabolic encephalopathy; N17.0 Acute kidney failure with tubular necrosis; E87.1 Hypo-osmolality and hyponatremia; I13.0 Hypertensive heart and chronic kidney disease with heart failure and stage 1 through stage 4 chronic kidney disease, or unspecified chronic kidney disease; Z51.5 Encounter for palliative care; E11.22 Type 2 diabetes mellitus with diabetic chronic kidney disease; G30.9 Alzheimer's disease, unspecified; F02.80 Dementia in other diseases classified elsewhere, unspecified severity, without behavioral disturbance, psychotic disturbance, mood disturbance, and anxiety; N18.9 Chronic kidney disease, unspecified; I50.9 Heart failure, unspecified; Z86.73 Personal history of transient ischemic attack (TIA), and cerebral infarction without residual deficits; Z90.710 Acquired absence of both cervix and uterus; Z79.899 Other long term (current) drug therapy; Z79.4 Long term (current) use of insulin
CPT/HCPCS: 36415; 70450; 71045; 80048; 80053; 80320; 81001; 82140; 83605; 83735; 83880; 84443; 84484; 85007; 85025; 85027; 87086; 87426; 87804; 93005; G0378; J1450

== ENCOUNTER 2024-10-10 16:07 | Inpatient (IN) | payer OTHER ==
[~2024-10-10] VITALS: Ht 157.5 cm; Wt 75.5 kg
[~2024-10-10 16:07] MED LIST changes: +CEFD300C2 PO
[2024-10-10 16:15] VITALS: PULSE 106; RESP 19; O2SAT 94
--- NOTE | 2024-10-10 16:15 | ED.PDOC ---
History of Present Illness HPI Comments 84-year-old female history of dementia diabetes CVA with a blood sugar of 324 was brought by paramedics because of nausea vomiting. Patient was coming back from dementia clinic when the family pulled over called the director project management because she was having nausea vomiting. Denies chest pain. Unable to get any history from the patient. EKG by the paramedics did show inferior lead elevation in one of the leads. Time Seen by MD: 16:11 Primary Care Provider: UNKNOWN Reviewed Notes: Nurses Notes, Medications, Allergies Allergies: Coded Allergies: NO KNOWN ALLERGIES (Unverified , 03/20/23) Home Meds Active Scripts Cefdinir (Cefdinir) 300 Mg Cap, 1 CAP PO BID for 3 Days, #6 CAP Prov:SARA PIÑA MD 04/14/24 Naloxone HCl (Narcan) 4 Mg/0.1 Ml Spr, 4 MG NA PRN, #1 SPRAY Prov:VANDA PEREZ STUDENT ACTIVITIES DIRECTOR 07/12/23 Hydrocodone-Acetaminophen (Hydrocodone Bitartrate/AC 5-325 mg) 1 Tab Tab, 1 TAB PO Q6HP PRN for 5 Days, #20 TAB Prov:VANDA PEREZ STUDENT ACTIVITIES DIRECTOR 07/12/23 Enoxaparin Sodium (Lovenox) 40 Mg/0.4 Ml Ij, 40 MG SC DAILY for 7 Days, #7 INJ Prov:VANDA PEREZ STUDENT ACTIVITIES DIRECTOR 07/12/23 Reported Medications Simvastatin (Simvastatin) 10 Mg Tab, 5 MG PO DAILY 07/10/23 Ergocalciferol (Vitamin D) 50,000 Unit Cap, 1 CAP PO QWEEKLY 07/10/23 Dapagliflozin Propanediol (Farxiga) 10 Mg Tab, 1 TAB PO DAILY 07/10/23 Tirzepatide (Mounjaro) 2.5 Mg/0.5 Ml Inj, SC 07/10/23 Diltiazem Hcl (Diltiazem Hcl Er) 120 Mg Cap, 1 CAP PO DAILY 07/10/23 Oxybutynin Chloride (Oxybutynin Chloride) 5 Mg Tab, 1 TAB PO DAILY 07/10/23 Metoprolol Tartrate (Lopressor) 25 Mg Tb, 1 TAB PO DAILY, TAB 0 Refills 07/10/23 Furosemide (Furosemide) 20 Mg Tab, 1 TAB PO DAILY, #90 TAB 1 Refill 07/08/23 Folic Wuzs-Qgxucamnkc-Tbpxwlga (Folbic) Tab, 1 TAB PO DAILY, #90 TAB 1 Refill 07/08/23 Ferrous Sulfate (FERROUS SULFATE) 325 Mg Tb, 1 TAB PO BID 07/08/23 Hydroxychloroquine Sulfate (PLAQUENIL) 200 Mg Tab, 1 TAB PO DAILY 07/08/23 Losartan Potassium (Losartan Potassium) 100 Mg Tab, 100 MG PO DAILY for 30 Days, MG 07/08/23 Sertraline Hcl (Sertraline Hcl) 25 Mg Tab, 1 TAB PO DAILY for DEPRESSION 03/21/23 Aspirin (Aspirin) 81 Mg Tab, 1 TAB PO DAILY for HEART DISEASE 03/21/23 Cyanocobalamin (Vitamin B12) 1,000 Mcg Tab, 1 TAB PO DAILY for SUPPLEMENT 03/20/23 Sitagliptin Phosphate (Januvia) 100 Mg Tab, 1 TAB PO DAILY for DIABETES 10/13/17 Omeprazole (Gnp Omeprazole) 20 Mg Tab, 1 TAB PO QAM for GERD 10/13/17 Gabapentin (Gabapentin) 300 Mg Cap, 1 CAP PO BID for NEUROPATHY 10/13/17 Information Source: Emergency Med Personnel Mode of Arrival: EMS Severity: Moderate Timing: Minutes Duration: Since onset Past Medical History PAST MEDICAL HISTORY: CVA, Dementia, DM, High Lipids, HTN Surgical History: Hysterectomy 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: Denies all [employer]ENIOR [employer] SOFTWARE DEVELOPER Hx Family History Family History: Reviewed,noncontributory to illness, Family hx of DM Social History Smoker: Non-Smoker Alcohol: Denies ETOH Use Drugs: Denies Drug Use Lives In: Home Gastrointestinal: reports: nausea, vomiting Unable to Obtain due to: Altered Mental Status Physical Exam General Appearance: Moderate Distress HEENT: Normal ENT Inspection, Pharynx Normal, TMs Normal Neck: Full Range of Motion, Non-Tender, Normal, Normal Inspection Respiratory: Chest Non-Tender, Lungs Clear, No Accessory Muscle Use, No Respiratory Distress, Normal Breath Sounds Cardiovascular: Tachycardia Breast Exam: Deferred Gastrointestinal: No Organomegaly, Non Tender, No Pulsatile Mass, Normal Bowel Sounds, Soft Genitalia: Deferred Pelvic: Deferred Rectal: Deferred Extremities: No calf tenderness, No pedal edema Musculoskeletal : Apperance: Normal Neurologic: Disoriented Cerebellar Function: NOT DONE Reflexes: NOT DONE Skin: Dry, Normal Color, Warm Peripheral Pulses: 3+ Radial (R), 3+ Radial (L) Lymphatic: No Adenopathy Was a procedure done? Was a procedure done?: No EKG EKG : Cardiac Rhythm: ST Differential Dx Considerations may include: NSTEMI Electrolyte imbalance X-Ray, Labs, Meds, VS Vital Signs Date Time Temp Pulse Resp B/P (MAP) Pulse Ox O2 Delivery O2 Flow Rate FiO2 10/10/24 16:19 98.9 121 15 100/68 100 98.9 10/10/24 16:15 98.9 106 19 111/50 (70) 94 98.9 10/10/24 16:15 106 19 94 Room Air* 0 21 10/10/24 16:08 108 Lab Test 10/10/24 17:49 10/10/24 16:36 Range/Units Troponin I High Sensitivity Pending 7 </=34 ng/L White Blood Count 10.2 4.4-10.8 10^3/uL Red Blood Count 5.10 4.0-5.20 10^6/uL Hemoglobin 13.5 12.2-16.2 g/dL Hematocrit 41.5 36.0-46.0 % Mean Corpuscular Volume 81.4 80.0-100.0 fL Mean Corpuscular Hemoglobin 26.5 L 28.0-32.0 pg Mean Corpuscular Hemoglobin Concent 32.6 32.0-36.0 g/dL Red Cell Distribution Width 14.7 H 11.8-14.3 % Platelet Count 311 140-450 10^3/uL Mean Platelet Volume 7.0 6.9-10.8 fL Neutrophils (%) (Auto) 88.2 H 37.0-80.0 % Lymphocytes (%) (Auto) 7.6 L 10.0-50.0 % Monocytes (%) (Auto) 3.6 0.0-12.0 % Eosinophils (%) (Auto) 0.2 0.0-7.0 % Basophils (%) (Auto) 0.4 0.0-2.0 % Neutrophils # (Auto) 9.0 H 1.6-8.6 10 ^3/uL Lymphocytes # (Auto) 0.8 0.4-5.4 10 ^3/uL Monocytes # (Auto) 0.4 0-1.3 10 ^3/uL Eosinophils # (Auto) 0 0-0.8 10 ^3/uL Basophils # (Auto) 0 0-0.2 10 ^3/uL Nucleated Red Blood Cells 0.0 % Sodium Level 136 136-145 mmol/L Potassium Level 4.3 3.5-5.1 mmol/L Chloride Level 104 98-107 mmol/L Carbon Dioxide Level 16 L 20-31 mmol/L Anion Gap 16 H 5-15 Blood Urea Nitrogen 35 H 9-23 mg/dL Creatinine 1.75 H 0.550-1.02 mg/dL Glomerular Filtration Rate Calc 28 >90 mL/min BUN/Creatinine Ratio 20.0 10.0-20.0 Serum Glucose 290 H 74-106 mg/dL Calcium Level 9.6 8.7-10.4 mg/dL Current Medications Medications (Trade) Dose Ordered Sig/Justin Route Start Time Stop Time Status Last Admin Sodium Chloride 1,000 ml @ 150 mls/hr Q6H40M ONCE IV 10/10/24 16:30 10/10/24 23:09 10/10/24 16:55 Patient has nausea vomiting. Tachycardia. EKG reviewed does show changes in inferior lead. Vitals stable. No sign of any injury. Establish intravenous access. Was given fluids. Explained to the patient. Continue monitoring. Time of 1ST Reevaluation: 16:13 Reevaluation 1ST: Unchanged Patient Education/Counseling: Other (Dementia) Family Education/Counseling: No Family Present SEPSIS Sepsis Screen Physician Orders Chest Portable (10/10/24 16:16) Urinalysis (10/10/24 16:16) Sodium Chloride 0.9% (10/10/24 16:30) Troponin-I Hs (10/10/24 17:16) Troponin-I Hs (10/10/24 19:16) Electrocardigram (10/10/24 16:51) Vital Signs Date Time Temp Pulse Resp B/P (MAP) Pulse Ox O2 Delivery O2 Flow Rate FiO2 10/10/24 16:19 98.9 121 15 100/68 100 98.9 10/10/24 16:15 98.9 106 19 111/50 (70) 94 98.9 10/10/24 16:15 106 19 94 Room Air* 0 21 10/10/24 16:08 108 Laboratory Tests Test 10/10/24 16:36 White Blood Count 10.2 10^3/uL (4.4-10.8) Medications Medications Dose Ordered Sig/Justin Route Start Time Stop Time Status Last Admin Dose Admin Sodium Chloride 1,000 ml @ 150 mls/hr Q6H40M ONCE IV 10/10/24 16:30 10/10/24 23:09 10/10/24 16:55 Departure 1 Departure Time of Disposition: 16:14 Impression: Primary Impression: NSTEMI (non-ST elevated myocardial infarction) Additional Impressions: Metabolic encephalopathy Uncontrolled diabetes mellitus Qualified Codes: E13.65 - Other specified diabetes mellitus with hyperglycemia Disposition: ADMITTED INPATIENT Admit to: Med Surg Condition: Guarded Critical Care Note Critical Care Time?: Yes (90 min-critical care time only) Stability Stability form required: No Heart Score Heart Score: Heart Score Response (Comments) Value History Moderate Suspicious 1 EKG Normal 0 Age >65 2 Risk Factors >3 or Hx ASHD 2 Troponin Normal limit 0 Total 5 ZAYRA JIMENEZ MD Oct 10, 2024 16:15
[2024-10-10 16:46] LABS: Hematocrit 41.5 % (36.0-46.0); Hemoglobin 13.5 g/dL (12.2-16.2); Mean Corpuscular Hemoglobin 26.5 pg (28.0-32.0); Mean Corpuscular Volume 81.4 fL (80.0-100.0); Nucleated Red Blood Cells % 0.0 %
[2024-10-10 16:52] LABS: Chloride 104 mmol/L (98-107); Potassium 4.3 mmol/L (3.5-5.1); Sodium 136 mmol/L (136-145)
[2024-10-10 16:53] LABS: Anion Gap 16 (5-15); Calcium 9.6 mg/dL (8.7-10.4)
[2024-10-10 16:54] LABS: Carbon Dioxide 16 mmol/L (20-31)
[2024-10-10] MEDS: SODIUM CHLORIDE 0.9% 1,000 ML IV ONE (16:55)
[2024-10-10 16:58] LABS: BUN/Creatinine Ratio 20.0 (10.0-20.0)
[2024-10-10 16:59] LABS: Blood Urea Nitrogen 35 mg/dL (9-23); Glucose 290 mg/dL (74-106)
--- NOTE | 2024-10-10 17:08 | DVH ---
CHEST RADIOGRAPH Indication: sob Technique: XY CHEST PORTABLE COMPARISON: None FINDINGS: Left chest dual lead cardiac pacer device. The cardiac silhouette is enlarged. The lungs demonstrate bilateral patchy airspace opacities. The pu lmonary vasculature is prominent. There is no pleural effusion. There is no pneumothorax. IMPRESSION: Cardiomegaly with pulmonary vascular congestion and bilateral patchy airspace opacities.
[2024-10-10] MEDS ORDERED: DOCUSATE SOD 100 MG CAP PO PRN (21:30)
[2024-10-10] MEDS ORDERED: DEXTROSE (50%) 50ML SYRG IV PRN (21:30)
[2024-10-10] MEDS ORDERED: ACETAMINOPHEN 325 MG TAB PO PRN (21:30)
[2024-10-10] MEDS: ATORVASTATIN 20 MG TAB PO SCH (21:55)
[2024-10-10] MEDS: METOPROLOL TARTRATE 50 MG TAB PO SCH (21:55)
[2024-10-10] MEDS: SODIUM CHLORIDE 0.9% 1,000 ML IV SCH (22:07)
--- NOTE | 2024-10-10 23:20 | DVHHP2 ---
History of Present Illness Reason for Visit: Generalized weakness History of Present Illness The patient is a 84-year-old female with past medical history of dementia, CVA, diabetes mellitus, hyperlipidemia, and hypertension who presented to [facility] ED with complaint of generalized weakness. As reported by EMS, patient was coming back from dementia clinic when the family pulled over and called paramedics because patient was having severe nausea and vomiting. When EMS arrived on the scene, patient's EKG showed inferiorly lead elevation in one of the leads. Patient was seen and evaluated in the ED, laboratory data shows WBC 10.2, platelets 311, sodium 136, potassium 4.3, BUN 35, creatinine 1.75, glucose 290, calcium 9.6, troponin 37, blood pressure 140/53, heart rate 86, temperature 97.4 F, O2 saturation 94% oxygen. Chest x-ray revealing cardiomegaly with pulmonary vascular congestion and bilateral patchy airspace opacities. Please see medication orders section in the computer. On my assessment, patient denied chest pain, no headache, no dizziness, no natanael phoresis, currently on oxygen, no nausea, no vomiting, no fever, no chills. Patient was admitted for further evaluation and medical management. Past Medical History CVA, Dementia, DM, High Lipids, HTN Past Surgical History Hysterectomy Family History Reviewed, noncontributory to the management of this case. Past Social History The patient lives at home, denies smoking, alcohol or illicit drugs abuse. Review of Systems Constitutional: Yes: Weakness; No: Fever, Chills, Sweats, Malaise, Other Eyes: No: Pain, Vision change, Conjunctivae inflammation, Eyelid inflammation, Other, Redness ENT: No: Ear pain, Ear discharge, Nose pain, Nose discharge, Nose congestion, Mouth pain, Mouth swelling, Throat pain, Throat swelling, Other Respiratory: Shortness of breath; No: Cough, Dry, SOB with excertion, Wheezing, Hemoptysis, Pleuritic Pain, Sputum, Wheezing, Other Cardiovascular: No: Chest Pain, Palpitations, Orthopnea, Paroxysmal Noc. Dyspnea, Edema, Lt Headedness, Other Gastrointestinal: Nausea, Vomiting; No: Abdominal Pain, Diarrhea, Constipation, Melena, Hematochezia, Other Genitourinary: No Dysuria, No Frequency, No Incontinence, No Hematuria, No Retention, No Other Musculoskeletal: No: other, neck pain, shoulder pain, arm pain, back pain, hand pain, leg pain, foot pain Skin: No: Rash, Lesions, Jaundice, Bruising, Other Neurological: No: Weakness, Numbness, Incoordination, Change in speech, Confusion, Seizures, Other Allergies: Coded Allergies: NO KNOWN ALLERGIES (Unverified , 03/20/23) Medications Current Medications Medications Dose Ordered Sig/Justin Route Start Time Stop Time Status Last Admin Dose Admin Aspirin 81 mg DAILY PO 10/11/24 10:00 Atorvastatin Calcium 10 mg HS PO 10/10/24 22:00 10/10/24 21:55 10 MG Metoprolol Tartrate 50 mg BID PO 10/10/24 22:00 10/10/24 21:55 50 MG Clonidine HCl 0.1 mg Q4HP PRN PO 10/10/24 21:30 Diagnostic Test (Pha) 1 strip IQ4HR 10/11/24 00:00 Insulin Human Regular IQ4HR SC 10/11/24 00:00 Dextrose 50 ml UD PRN IV 10/10/24 21:30 Sodium Chloride 1,000 ml @ 60 mls/hr [id number] IV 10/10/24 21:30 10/10/24 22:07 60 MLS/HR Acetaminophen/ Hydrocodone Bitart 1 tab Q4HP PRN PO 10/10/24 21:30 Ondansetron HCl 4 mg Q4HP PRN IV 10/10/24 21:30 Docusate Sodium 100 mg BIDPRN PRN PO 10/10/24 21:30 Acetaminophen 650 mg Q6HP PRN PO 10/10/24 21:30 Exam Vital Signs Vital Signs Date Time Temp Pulse Resp B/P (MAP) Pulse Ox O2 Delivery O2 Flow Rate FiO2 10/10/24 22:55 71 129/45 10/10/24 22:00 19 96 10/10/24 19:40 97.3 97.3 10/10/24 19:30 Room Air* 0 21 General Appearance: Alert, Oriented X3, Cooperative, No acute distress HEENT: Atraumatic, PERRLA, EOMI, Mucous membr. moist/pink Respiratory: Normal air movement, Other (Diminished breath sounds) Cardiovascular: Regular rate, Normal S1, Normal S2, No murmurs Abdominal: Normal bowel sounds, Soft, No tenderness, No hepatospenomegaly, No masses Extremities: No clubbing, No cyanosis, No edema, Normal pulses, No tenderness/swelling Skin: No rashes, No breakdown, No significant lesion Neuro: Normal speech, Normal tone, Sensation intact, Cranial nerves 3-12 NL, Reflexes 2+, Other (Generalized weakness) Psych/Mental Status: Mental status NL, Mood NL Labs/Xrays Labs Test 10/10/24 22:17 10/10/24 16:36 Range/Units Troponin I High Sensitivity 380 *H </=34 ng/L White Blood Count 10.2 4.4-10.8 10^3/uL Red Blood Count 5.10 4.0-5.20 10^6/uL Hemoglobin 13.5 12.2-16.2 g/dL Hematocrit 41.5 36.0-46.0 % Mean Corpuscular Volume 81.4 80.0-100.0 fL Mean Corpuscular Hemoglobin 26.5 L 28.0-32.0 pg Mean Corpuscular Hemoglobin Concent 32.6 32.0-36.0 g/dL Red Cell Distribution Width 14.7 H 11.8-14.3 % Platelet Count 311 140-450 10^3/uL Mean Platelet Volume 7.0 6.9-10.8 fL Neutrophils (%) (Auto) 88.2 H 37.0-80.0 % Lymphocytes (%) (Auto) 7.6 L 10.0-50.0 % Monocytes (%) (Auto) 3.6 0.0-12.0 % Eosinophils (%) (Auto) 0.2 0.0-7.0 % Basophils (%) (Auto) 0.4 0.0-2.0 % Neutrophils # (Auto) 9.0 H 1.6-8.6 10 ^3/uL Lymphocytes # (Auto) 0.8 0.4-5.4 10 ^3/uL Monocytes # (Auto) 0.4 0-1.3 10 ^3/uL Eosinophils # (Auto) 0 0-0.8 10 ^3/uL Basophils # (Auto) 0 0-0.2 10 ^3/uL Nucleated Red Blood Cells 0.0 % Sodium Level 136 136-145 mmol/L Potassium Level 4.3 3.5-5.1 mmol/L Chloride Level 104 98-107 mmol/L Carbon Dioxide Level 16 L 20-31 mmol/L Anion Gap 16 H 5-15 Blood Urea Nitrogen 35 H 9-23 mg/dL Creatinine 1.75 H 0.550-1.02 mg/dL Glomerular Filtration Rate Calc 28 >90 mL/min BUN/Creatinine Ratio 20.0 10.0-20.0 Serum Glucose 290 H 74-106 mg/dL Calcium Level 9.6 8.7-10.4 mg/dL PATIENT: GABRIELA GARNER ACCT: [id number] UNIT: [id number] : 1940 LOC: ER ROOM / BED: / AGE / SEX: 84 / F ADM STATUS: REG ER SERVICE 1616 ORDERING PHYSICIAN: ZAYRA JIMENEZ MD PROCEDURE(s): CXRP - CHEST PORTABLE REASON: sob ORDER NUMBER(s): [id number], ACCESSION NUMBER(s): [id number] CHEST RADIOGRAPH Indication: sob Technique: XY CHEST PORTABLE COMPARISON: None FINDINGS:Left chest dual lead cardiac pacer device. The cardiac silhouette is enlarged. The lungs demonstrate bilateral patchy airspace opacities. The pulmonary vasculature is prominent. There is no pleural effusion. There is no pneumothorax. IMPRESSION: Cardiomegaly with pulmonary vascular congestion and bilateral patchy airspace opacities. SEPSIS Sepsis Screen Date sepsis recognized/suspect: Oct 10, 2024 Time Sepsis recognized/suspect: 2010 Recent Procedure: No On Antibiotic Therapy: No Respiratory Rate >20: No Heart Rate >90: No Temp<36 C (96.8 F) or >38.3 C: No SBP <90 or MAP <65 mmHG: No New Acute Mental Status Change: No Is the patient on CPAP, BIPAP,: No Physician Orders Chest Portable (10/10/24 16:16) Urinalysis (10/10/24 16:16) Electrocardigram (10/10/24 16:51) Aspirin Tablet (10/11/24 10:00) Atorvastatin (Lipitor) (10/10/24 22:00) Consistent Carb(Ccho)Diabetes (10/11/24 Breakfast) Metoprolol Tartrate Tablet (Lopressor Ta (10/10/24 22:00) Clonidine Hcl Tablet (Catapres Tablet) (10/10/24 21:30) Glucose Blood (Accu-Chek Comfort Curve T (10/11/24 00:00) Insulin R (Human) (Insulin R) (10/11/24 00:00) Dextrose 50% Syringe (10/10/24 21:30) Allergies (10/10/24:) Code Status (10/10/24:) Sodium Chloride 0.9% (10/10/24 21:30) Oxygen Per Hour (10/10/24:) Hydrocodone-Acet 5/325mg Tab ([place] 5/32 (10/10/24 21:30) Ondansetron Hcl (Zofran) (10/10/24 21:30) Docusate Sodium Capsule (Colace Capsule) (10/10/24 21:30) Fall Risk Precautions In Place QSHIFT (10/10/24:) Complete Blood Count (10/11/24 04:00) Comprehensive Metabolic Panel (10/11/24 04:00) Condition: Serious (10/10/24:) Acetaminophen Tablet (Tylenol Tablet) (10/10/24 21:30) Maintain Bed Rest (10/10/24:) Sequential Compression Device (10/10/24 ) Admit (10/10/24 23:18) Nitroglycerin Sublingual (Ntrostat Subli (10/10/24 23:30) Morphine Sulfate Injection (10/10/24 23:30) Vital Signs Date Time Temp Pulse Resp B/P (MAP) Pulse Ox O2 Delivery O2 Flow Rate FiO2 10/10/24 22:55 71 129/45 10/10/24 22:00 72 19 123/100 (108) 96 10/10/24 21:55 78 133/48 10/10/24 20:00 86 10/10/24 19:40 97.3 89 14 140/53 (82) 94 97.3 10/10/24 19:30 Room Air* 0 21 10/10/24 16:19 98.9 121 15 100/68 100 98.9 10/10/24 16:15 98.9 106 19 111/50 (70) 94 98.9 10/10/24 16:15 106 19 94 Room Air* 0 21 10/10/24 16:08 108 Laboratory Tests Test 10/10/24 16:36 White Blood Count 10.2 10^3/uL (4.4-10.8) Medications Medications Dose Ordered Sig/Justin Route Start Time Stop Time Status Last Admin Dose Admin Atorvastatin Calcium 10 mg HS PO 10/10/24 22:00 10/10/24 21:55 10 MG Metoprolol Tartrate 50 mg BID PO 10/10/24 22:00 10/10/24 21:55 50 MG Sodium Chloride 1,000 ml @ 60 mls/hr [id number] IV 10/10/24 21:30 10/10/24 22:07 60 MLS/HR Sodium Chloride 1,000 ml @ 150 mls/hr [id number] ONCE IV 10/10/24 16:30 10/10/24 23:09 DC 10/10/24 16:55 150 MLS/HR Assessment/Plan Assessment/Plan Generalized weakness Acute renal injury Metabolic encephalopathy Uncontrolled diabetes mellitus Other specified diabetes mellitus with hyperglycemia NSTEMI (non-ST elevated myocardial infarction) Plan 1. Admit to telemetry unit 2. Breathing treatment 3. Pain control management 4. Management of fluids and electrolytes 5. Consultation for Nephrology 6. Diagnostic tests chest x-ray 7. DVT prophylaxis on aspirin 8. Repeat labs CBC, CMP in a.m. 9. Continue with current medical management 10. Treatment plan discussed with patient and RN. Patient verbalized understanding. Plan discussed with: Patient, Other (RN) My Orders Orders - EMA OGLESBY DNP Procedure Category Date Status Time Aspirin Tablet PHA 10/11/24 In Process 10:00 Atorvastatin (Lipitor) PHA 10/10/24 In Process 22:00 Consistent DIET 10/11/24 Transmitted Carb(Ccho)Diabetes Breakfast Metoprolol Tartrate PHA 10/10/24 In Process Tablet (Lopressor Ta 22:00 Clonidine Hcl Tablet PHA 10/10/24 In Process (Catapres Tablet) 21:30 Glucose Blood PHA 10/11/24 In Process (Accu-Chek Comfort 00:00 Insulin R (Human) PHA 10/11/24 In Process (Insulin R) 00:00 Dextrose 50% Syringe PHA 10/10/24 In Process 21:30 Allergies GARETT 10/10/24 In Process 21:26 Code Status CODE 10/10/24 Transmitted 21:26 Sodium Chloride 0.9% PHA 10/10/24 In Process 21:30 Oxygen Per Hour RT 10/10/24 Transmitted 21:26 Hydrocodone-Acet PHA 10/10/24 In Process 5/325mg Tab ([place] 21:30 Ondansetron Hcl PHA 10/10/24 In Process (Zofran) 21:30 Docusate Sodium PHA 10/10/24 In Process Capsule (Colace 21:30 Fall Risk Precautions GARETT 10/10/[address] 21:26 Complete Blood Count LAB 10/11/24 Verified 04:00 Comprehensive LAB 10/11/24 Verified Metabolic Panel 04:00 Condition: Serious GARETT 10/10/24 In Process 21:26 Acetaminophen Tablet PHA 10/10/24 In Process (Tylenol Tablet) 21:30 Maintain Bed Rest GARETT 10/10/24 In Process 21:26 Sequential GARETT 10/10/24 In Process Compression Device Admit ADMIT 10/10/24 Verified 23:18 Nitroglycerin PHA 10/10/24 Verified Sublingual (Ntrostat 23:30 Morphine Sulfate PHA 10/10/24 Verified Injection 23:30 Problem List: (1) Generalized weakness (2) Acute renal injury (3) Metabolic encephalopathy (4) Uncontrolled diabetes mellitus (5) NSTEMI (non-ST elevated myocardial infarction) (6) Other specified diabetes mellitus with hyperglycemia Date of Service: Oct 10, 2024 Billing Provider: EMA OGLESBY DNP Common Visit Codes: [id number] INP/OBS CARE (HIGH) EMA OGLESBY DNP Oct 10, 2024 23:20
[2024-10-10] MEDS ORDERED: NITROGLYCERIN 0.4 MG SL TAB SL PRN (23:30)
[2024-10-10] MEDS ORDERED: MORPHINE SULFATE INJ 2 MG/ml SYRG IV PRN (23:30)
[2024-10-11] MEDS: ACCU-CHEK COMFORT CURVE STRIP VI SCH (01:28)
[2024-10-11] MEDS: InsuLIN REG 1unit/0.01ml Soln (100units/ml) SC SCH (01:31)
[2024-10-11 07:09] LABS: Alanine Aminotransferase < 9 U/L (7-40); Albumin 4.0 g/dL (3.2-4.8); Alkaline Phosphatase 74 U/L (46-116); Anion Gap 14 (5-15); BUN/Creatinine Ratio 21.6 (10.0-20.0); Bilirubin, Total 0.2 mg/dL (0.2-1.0); Blood Urea Nitrogen 30 mg/dL (9-23); Calcium 9.6 mg/dL (8.7-10.4); Carbon Dioxide 20 mmol/L (20-31); Chloride 105 mmol/L (98-107); Glucose 122 mg/dL (74-106); Potassium 3.5 mmol/L (3.5-5.1); Sodium 139 mmol/L (136-145); Total Protein 7.2 g/dL (5.7-8.2)
[2024-10-11 07:15] LABS: Hematocrit 41.1 % (36.0-46.0); Hemoglobin 13.7 g/dL (12.2-16.2); Mean Corpuscular Hemoglobin 26.7 pg (28.0-32.0); Mean Corpuscular Volume 79.9 fL (80.0-100.0); Nucleated Red Blood Cells % 0.1 %
[2024-10-11 07:37] VITALS: PULSE 94; RESP 18; O2SAT 98
[2024-10-11 08:47] LABS: Urine Budding Yeast LOADED /hpf (None Seen); Urine WBC Clumps PRESENT /hpf (None Seen)
[2024-10-11 09:08] LABS: Urine Protein, UAD 2+ (Negative)
--- NOTE | 2024-10-11 13:21 | DVHPN2 ---
Reviewed: Care Plan, H&P, Labs, Medications, Previous Orders, Radiology Changes from previous H/P or p: No Changes Eyes: No Pain, No Vision change, No Conjunctivae inflammation, No Eyelid inflammation, No Other, No Redness ENT: No Ear pain, No Ear discharge, No Nose pain, No Nose discharge, No Nose congestion, No Mouth pain, No Mouth swelling, No Throat pain, No Throat swelling, No Other Cardiovascular: No Chest Pain, No Palpitations, No Orthopnea, No Paroxysmal Noc. Dyspnea, No Edema, No Lt Headedness, No Other Respiratory: No Cough, No Dry; Shortness of breath; No SOB with excertion, No Wheezing, No Hemoptysis, No Pleuritic Pain, No Sputum, No Other Gastrointestinal: Nausea, Vomiting; No Abdominal Pain, No Diarrhea, No Constipation, No Melena, No Hematochezia, No Other Genitourinary: No Dysuria, No Frequency, No Incontinence, No Hematuria, No Retention, No Other Musculoskeletal: No other, No neck pain, No shoulder pain, No arm pain, No back pain, No hand pain, No leg pain, No foot pain Skin: No Rash, No Lesions, No Jaundice, No Bruising, No Other Objective Vitals Vital Signs Date Time Temp Pulse Resp B/P (MAP) Pulse Ox O2 Delivery O2 Flow Rate FiO2 10/11/24 13:00 94 Room Air* 0 21 10/11/24 12:00 75 10/11/24 12:00 97.6 19 125/41 (69) 97.6 Intake/Output Intake and Output 10/11/24 07:00 Intake Total 60 ml Balance 60 ml Intake IV Total 60 ml Medications Current Medications Medications Dose Ordered Sig/Justin Route Start Time Stop Time Status Last Admin Dose Admin Aspirin 81 mg DAILY PO 10/11/24 10:00 10/11/24 10:16 81 MG Atorvastatin Calcium 10 mg HS PO 10/10/24 22:00 10/10/24 21:55 10 MG Metoprolol Tartrate 50 mg BID PO 10/10/24 22:00 10/11/24 10:15 50 MG Clonidine HCl 0.1 mg Q4HP PRN PO 10/10/24 21:30 Diagnostic Test (Pha) 1 strip IQ4HR 10/11/24 00:00 10/11/24 11:42 1 STRIP Insulin Human Regular IQ4HR SC 10/11/24 00:00 10/11/24 11:41 3 UNITS Dextrose 50 ml UD PRN IV 10/10/24 21:30 Sodium Chloride 1,000 ml @ 60 mls/hr [id number] IV 10/10/24 21:30 10/10/24 22:07 60 MLS/HR Acetaminophen/ Hydrocodone Bitart 1 tab Q4HP PRN PO 10/10/24 21:30 Ondansetron HCl 4 mg Q4HP PRN IV 10/10/24 21:30 Docusate Sodium 100 mg BIDPRN PRN PO 10/10/24 21:30 Acetaminophen 650 mg Q6HP PRN PO 10/10/24 21:30 Nitroglycerin 0.4 mg Q5MINP PRN SL 10/10/24 23:30 Morphine Sulfate 2 mg Q30M PRN IV 10/10/24 23:30 Laboratory Results Laboratory Tests 10/11/24 05:50 Chemistry Test 10/10/24 16:36 10/11/24 05:50 Calcium Level 9.6 mg/dL (8.7-10.4) 9.6 mg/dL (8.7-10.4) Albumin 4.0 g/dL (3.2-4.8) Total Protein 7.2 g/dL (5.7-8.2) LFT Test 10/11/24 05:50 Alanine Aminotransferase (ALT) < 9 U/L (7-40) Alkaline Phosphatase 74 U/L (46-116) Aspartate Amino Transferase (AST) 8 U/L (13-40) L Total Bilirubin 0.2 mg/dL (0.2-1.0) Urinalysis Test 10/10/24 07:36 Urine Color Dark-brown (Yellow) Urine Clarity Ex.turbid (Clear) Urine pH 5.5 (5.0-9.0) Urine Specific [place] 1.014 (1.001-1.035) Urine Protein 2+ (Negative) H Urine Ketones Negative (Negative) Urine Blood 2+ /uL (Negative) H Urine Nitrite Negative (Negative) Urine Bilirubin Negative (Negative) Urine Urobilinogen Normal mg/dL (Negative) Urine Leukocyte Esterase 3+ /uL (Negative) Urine RBC 3446 /hpf (0 - 4) Urine WBC Clumps Present /hpf (None Seen) Urine Microscopic WBC 84074 /HPF (0-5) H Urine Squamous Epithelial Cells Many /hpf (<5) Urine Bacteria None seen /hpf (None Seen) Urine Yeast (Budding) Loaded /hpf (None Seen) Urine Glucose 2+ mg/dL (Normal) H Labs and/or images reviewed: Labs reviewed by me, Image(s) reviewed by me Assessment/Plan Assessment/Plan Septic shock with altered mental status elevated white count confusion secondary to urinary tract infection Acute urinary tract infection: Blood cultures urine cultures Rocephin Community-acquired pneumonia Gram-positive versus Gram-negative: Rocephin azithromycin Flu test pending COVID test pending History of CVA Uncontrolled diabetes: Insulin sliding scale Hypertension Elevated troponin 380: Cardiology consult Hypercholesterolemia Dementia Nausea and vomiting Severe malnutrition Time spent 70 minutes Advanced care planning time 20 minutes Patient is full code Patient is hospice revoked Plan discussed with: Patient My Orders Orders - THALIA WHITE MD Procedure Category Date Status Time Blood Culture GUI 10/11/24 Logged 13:15 Communication Order ORDERS 10/11/24 Transmitted 13:16 Covid19 Antigen [place] LAB 10/11/24 Logged Rapid Influenza A&B LAB 10/11/24 Logged 13:16 Date of Service: Oct 11, 2024 Billing Provider: THALIA WHITE MD Common Visit Codes: [id number] CARE 30-74 MIN THALIA WHITE MD Oct 11, 2024 13:21
[2024-10-11 14:35] VITALS: BP 126/52; PULSE 60; RESP 18; TEMP 98; O2SAT 97
[2024-10-11] MEDS: cefTRIAXone 1GM/50ML D5W 50 ML IV ONE (15:26)
[2024-10-11] MEDS: AZITHROMYCIN 500MG/ 250ML 250 ML IV ONE (15:26)
[2024-10-11 16:59] VITALS: BP 142/54; PULSE 60; RESP 16; TEMP 97.5; O2SAT 96
[2024-10-11 20:00] VITALS: PULSE 63; RESP 18; O2SAT 96
[2024-10-11 21:02] VITALS: BP 156/62; PULSE 67; RESP 19; TEMP 97.9; O2SAT 95
[2024-10-11 23:01] LABS: COVID19 ANTIGEN SOFIA FIA NEGATIVE (NEGATIVE)
[2024-10-12] VITALS (7 sets, daily range): BP systolic 139–153; BP diastolic 44–70; PULSE 57–64; RESP 18–20; TEMP 97.3–98.1; O2SAT 94–98
[2024-10-12] MEDS: cefTRIAXone 1GM/50ML D5W 50 ML IV SCH (08:38)
[2024-10-12] MEDS: AZITHROMYCIN 500MG/ 250ML 250 ML IV SCH (10:07)
--- NOTE | 2024-10-12 11:30 | DVHPN2 ---
Reviewed: Care Plan, H&P, Labs, Medications, Previous Orders, Radiology Changes from previous H/P or p: No Changes Eyes: No Pain, No Vision change, No Conjunctivae inflammation, No Eyelid inflammation, No Other, No Redness ENT: No Ear pain, No Ear discharge, No Nose pain, No Nose discharge, No Nose congestion, No Mouth pain, No Mouth swelling, No Throat pain, No Throat swelling, No Other Cardiovascular: No Chest Pain, No Palpitations, No Orthopnea, No Paroxysmal Noc. Dyspnea, No Edema, No Lt Headedness, No Other Respiratory: No Cough, No Dry; Shortness of breath; No SOB with excertion, No Wheezing, No Hemoptysis, No Pleuritic Pain, No Sputum, No Other Gastrointestinal: Nausea, Vomiting; No Abdominal Pain, No Diarrhea, No Constipation, No Melena, No Hematochezia, No Other Genitourinary: No Dysuria, No Frequency, No Incontinence, No Hematuria, No Retention, No Other Musculoskeletal: No other, No neck pain, No shoulder pain, No arm pain, No back pain, No hand pain, No leg pain, No foot pain Skin: No Rash, No Lesions, No Jaundice, No Bruising, No Other Objective Vitals Vital Signs Date Time Temp Pulse Resp B/P (MAP) Pulse Ox O2 Delivery O2 Flow Rate FiO2 10/12/24 10:07 72 120/77 10/12/24 08:00 98.1 18 97 98.1 10/11/24 20:00 Room Air* 0 21 Intake/Output Intake and Output 10/12/24 07:00 Intake Total 1600 ml Output Total 1600 ml Balance 0 ml Intake Oral 1300 ml IV Total 300 ml Output Urine Total 1600 ml Medications Current Medications Medications Dose Ordered Sig/Justin Route Start Time Stop Time Status Last Admin Dose Admin Aspirin 81 mg DAILY PO 10/11/24 10:00 10/12/24 10:07 81 MG Atorvastatin Calcium 10 mg HS PO 10/10/24 22:00 10/11/24 21:14 10 MG Metoprolol Tartrate 50 mg BID PO 10/10/24 22:00 10/12/24 10:07 50 MG Clonidine HCl 0.1 mg Q4HP PRN PO 10/10/24 21:30 Diagnostic Test (Pha) 1 strip IQ4HR 10/11/24 00:00 10/12/24 08:34 1 STRIP Insulin Human Regular IQ4HR SC 10/11/24 00:00 10/11/24 11:41 3 UNITS Dextrose 50 ml UD PRN IV 10/10/24 21:30 Sodium Chloride 1,000 ml @ 60 mls/hr [id number] IV 10/10/24 21:30 10/12/24 08:33 60 MLS/HR Acetaminophen/ Hydrocodone Bitart 1 tab Q4HP PRN PO 10/10/24 21:30 Ondansetron HCl 4 mg Q4HP PRN IV 10/10/24 21:30 Docusate Sodium 100 mg BIDPRN PRN PO 10/10/24 21:30 Acetaminophen 650 mg Q6HP PRN PO 10/10/24 21:30 Nitroglycerin 0.4 mg Q5MINP PRN SL 10/10/24 23:30 Morphine Sulfate 2 mg Q30M PRN IV 10/10/24 23:30 Ceftriaxone Sodium 50 ml @ 100 mls/hr DAILY@09 IV 10/12/24 09:00 10/12/24 08:38 100 MLS/HR Azithromycin 250 ml @ 125 mls/hr DAILY IV 10/12/24 10:00 10/12/24 10:07 125 MLS/HR Laboratory Results Laboratory Tests 10/11/24 05:50 Urinalysis Test 10/10/24 07:36 Urine Color Dark-brown (Yellow) Urine Clarity Ex.turbid (Clear) Urine pH 5.5 (5.0-9.0) Urine Specific [place] 1.014 (1.001-1.035) Urine Protein 2+ (Negative) H Urine Ketones Negative (Negative) Urine Blood 2+ /uL (Negative) H Urine Nitrite Negative (Negative) Urine Bilirubin Negative (Negative) Urine Urobilinogen Normal mg/dL (Negative) Urine Leukocyte Esterase 3+ /uL (Negative) Urine RBC 3446 /hpf (0 - 4) Urine WBC Clumps Present /hpf (None Seen) Urine Microscopic WBC 16745 /HPF (0-5) H Urine Squamous Epithelial Cells Many /hpf (<5) Urine Bacteria None seen /hpf (None Seen) Urine Yeast (Budding) Loaded /hpf (None Seen) Urine Glucose 2+ mg/dL (Normal) H Labs and/or images reviewed: Labs reviewed by me, Image(s) reviewed by me Assessment/Plan Assessment/Plan Septic shock with altered mental status elevated white count confusion secondary to urinary tract infection Acute urinary tract infection: Blood cultures urine cultures Rocephin Community-acquired pneumonia Gram-positive versus Gram-negative: Rocephin azithromycin Flu test pending COVID test pending History of CVA Uncontrolled diabetes: Insulin sliding scale Hypertension Elevated troponin 380: Cardiology consult Multiple wounds present on admission sacrum and bilateral heel: Wound consult Hypercholesterolemia Dementia Nausea and vomiting Severe malnutrition Time spent 66 minutes Advanced care planning time 20 minutes Patient is full code Patient is hospice revoked Plan discussed with: Patient My Orders Orders - THALIA WHITE MD Procedure Category Date Status Time Blood Culture GUI 10/11/24 In Process 13:15 Communication Order ORDERS 10/11/24 Transmitted 13:16 Ceftriaxone 1gm/50ml PHA 10/12/24 In Process D5w (Rocephin) 09:00 Azithromycin 500mg/ PHA 10/12/24 In Process 250ml (Zithromax 50 10:00 * Wound Consult CONS 10/11/24 Transmitted Date of Service: Oct 12, 2024 Billing Provider: THALIA WHITE MD Common Visit Codes: [id number]-EUO/OBS DISCH DAY <30MIN THALIA WHITE MD Oct 12, 2024 11:30
--- NOTE | 2024-10-12 15:58 | DVHINCON2 ---
Date of service: Oct 12, 2024 History of Present Illness HPI Patient is a 84-year-old female who was brought to the hospital on October 10, 2024 for generalized weakness and nausea and vomiting. On October 12, 2024 I was called for cardiology consultation. Patient has been admitted and is being managed for metabolic encephalopathy, uncontrolled diabetes, complicated pneumonia/UTI, septic shock by primary team. She was coming to our office as outpatient until December 2023. Does have advanced dementia at baseline. As per family members, as the patient was on hospice, she did not follow as outpatient with us since then. Does have history of coronary artery disease and the last cardiac catheterization of February 2023 had revealed one-vessel coronary artery disease ([employer]). Family had wished for no invasive management previously. It is of note that the arrival EKG questioned inferior STEMI and no cardiology input has been in the chart. It is of note that the same EKG reveals inferior Q-waves and as the patient's arrival troponin was absolutely normal, this usually means that the presentation was not STEMI. At the time of evaluation, patient is only oriented to self. She denies any discomfort. Home Meds Active Scripts Cefdinir (Cefdinir) 300 Mg Cap, 1 CAP PO BID for 3 Days, #6 CAP Prov:SARA PIÑA MD 04/14/24 Naloxone HCl (Narcan) 4 Mg/0.1 Ml Spr, 4 MG NA PRN, #1 SPRAY Prov:VANDA PEREZ [employer] 07/12/23 Hydrocodone-Acetaminophen (Hydrocodone Bitartrate/AC 5-325 mg) 1 Tab Tab, 1 TAB PO Q6HP PRN for 5 Days, #20 TAB Prov:VANDA PEREZ [employer] 07/12/23 Enoxaparin Sodium (Lovenox) 40 Mg/0.4 Ml Ij, 40 MG SC DAILY for 7 Days, #7 INJ Prov:VANDA PEREZ [employer] 07/12/23 Reported Medications Simvastatin (Simvastatin) 10 Mg Tab, 5 MG PO DAILY 07/10/23 Ergocalciferol (Vitamin D) 50,000 Unit Cap, 1 CAP PO QWEEKLY 07/10/23 Dapagliflozin Propanediol (Farxiga) 10 Mg Tab, 1 TAB PO DAILY 07/10/23 Tirzepatide (Mounjaro) 2.5 Mg/0.5 Ml Inj, SC 5/20/24 Diltiazem Hcl (Diltiazem Hcl Er) 120 Mg Cap, 1 CAP PO DAILY 07/10/23 Oxybutynin Chloride (Oxybutynin Chloride) 5 Mg Tab, 1 TAB PO DAILY 07/10/23 Metoprolol Tartrate (Lopressor) 25 Mg Tb, 1 TAB PO DAILY, TAB 0 Refills 07/10/23 Furosemide (Furosemide) 20 Mg Tab, 1 TAB PO DAILY, #90 TAB 1 Refill 07/08/23 Folic Ajry-Goizxvzhtd-Cmuetorb (Folbic) Tab, 1 TAB PO DAILY, #90 TAB 1 Refill 07/08/23 Ferrous Sulfate (FERROUS SULFATE) 325 Mg Tb, 1 TAB PO BID 07/08/23 Hydroxychloroquine Sulfate (PLAQUENIL) 200 Mg Tab, 1 TAB PO DAILY 07/08/23 Losartan Potassium (Losartan Potassium) 100 Mg Tab, 100 MG PO DAILY for 30 Days, MG 07/08/23 Sertraline Hcl (Sertraline Hcl) 25 Mg Tab, 1 TAB PO DAILY for DEPRESSION 03/21/23 Aspirin (Aspirin) 81 Mg Tab, 1 TAB PO DAILY for HEART DISEASE 03/21/23 Cyanocobalamin (Vitamin B12) 1,000 Mcg Tab, 1 TAB PO DAILY for SUPPLEMENT 03/20/23 Sitagliptin Phosphate (Januvia) 100 Mg Tab, 1 TAB PO DAILY for DIABETES 10/13/17 Omeprazole (Gnp Omeprazole) 20 Mg Tab, 1 TAB PO QAM for GERD 10/13/17 Gabapentin (Gabapentin) 300 Mg Cap, 1 CAP PO BID for NEUROPATHY 10/13/17 Past Medical History Others Past medical history includes advanced dementia, diabetes mellitus, old history of coronary artery disease (known [employer]), old history of CVA, diastolic heart failure, valvular heart disease (severe mitral annular calcification and mild mitral stenosis), status post pacemaker ([employer]) implantation, pulmonary hypertension, vitamin B12 deficiency, peripheral artery disease, status post old hip fracture (right side) CKD, hypertension, hyperlipidemia, diabetic neuropathy and old history of hysterectomy. Family had decided against any invasive management from years ago. Patient Family History: Arthritis Cerebrovascular accident (CVA) G8 FATHER Diabetes mellitus G8 FATHER FH: cancer G8 MOTHER (LUNG CA) Hypertension Review of Systems Comments Patient has advanced dementia and can not provide review of systems/history of present illness/family history/detailed past medical history H&P Exam Vital Signs Vital Signs Date Time Temp Pulse Resp B/P (MAP) Pulse Ox O2 Delivery O2 Flow Rate FiO2 10/12/24 12:00 61 140/49 10/12/24 12:00 97.3 20 98 97.3 10/12/24 08:00 Room Air* 0 21 Head Exam: Normal inspection Neck Exam: Normal inspection Eye Exam: bilateral eye PERRL Mouth: Normal Inspection Pulmonary/Respiratory: Lungs clear Cardiovascular/Chest: Regular rate, Systolic murmur Peripheral Pulses: 2+ carotid (R), 2+ carotid (L) Abdominal Exam: Normal bowel sounds, Soft Labs/Xrays Labs Test 10/12/24 12:54 10/11/24 21:00 10/11/24 05:50 10/10/24 22:17 Range/Units POC Glucose 230 H 70-106 mg/dl Influenza Type A Antigen Negative Negative Influenza Type B Antigen Negative Negative SARS-CoV-2 Antigen (Rapid) Negative NEGATIVE White Blood Count 8.3 4.4-10.8 10^3/uL Red Blood Count 5.15 4.0-5.20 10^6/uL Hemoglobin 13.7 12.2-16.2 g/dL Hematocrit 41.1 36.0-46.0 % Mean Corpuscular Volume 79.9 L 80.0-100.0 fL Mean Corpuscular Hemoglobin 26.7 L 28.0-32.0 pg Mean Corpuscular Hemoglobin Concent 33.3 32.0-36.0 g/dL Red Cell Distribution Width 14.2 11.8-14.3 % Platelet Count 295 140-450 10^3/uL Mean Platelet Volume 7.2 6.9-10.8 fL Neutrophils (%) (Auto) 63.0 37.0-80.0 % Lymphocytes (%) (Auto) 25.2 10.0-50.0 % Monocytes (%) (Auto) 10.0 0.0-12.0 % Eosinophils (%) (Auto) 1.3 0.0-7.0 % Basophils (%) (Auto) 0.5 0.0-2.0 % Neutrophils # (Auto) 5.2 1.6-8.6 10 ^3/uL Lymphocytes # (Auto) 2.1 0.4-5.4 10 ^3/uL Monocytes # (Auto) 0.8 0-1.3 10 ^3/uL Eosinophils # (Auto) 0.1 0-0.8 10 ^3/uL Basophils # (Auto) 0 0-0.2 10 ^3/uL Nucleated Red Blood Cells 0.1 % Sodium Level 139 136-145 mmol/L Potassium Level 3.5 3.5-5.1 mmol/L Chloride Level 105 98-107 mmol/L Carbon Dioxide Level 20 20-31 mmol/L Anion Gap 14 5-15 Blood Urea Nitrogen 30 H 9-23 mg/dL Creatinine 1.39 H 0.550-1.02 mg/dL Glomerular Filtration Rate Calc 37 >90 mL/min BUN/Creatinine Ratio 21.6 H 10.0-20.0 Serum Glucose 122 H 74-106 mg/dL Calcium Level 9.6 8.7-10.4 mg/dL Total Bilirubin 0.2 0.2-1.0 mg/dL Aspartate Amino Transferase (AST) 8 L 13-40 U/L Alanine Aminotransferase (ALT) < 9 7-40 U/L Alkaline Phosphatase 74 46-116 U/L Total Protein 7.2 5.7-8.2 g/dL Albumin 4.0 3.2-4.8 g/dL Troponin I High Sensitivity 380 *H </=34 ng/L Test 10/10/24 07:36 Range/Units Urine Color Dark-brown Yellow Urine Clarity Ex.turbid Clear Urine pH 5.5 5.0-9.0 Urine Specific [place] 1.014 1.001-1.035 Urine Protein 2+ H Negative Urine Ketones Negative Negative Urine Blood 2+ H Negative /uL Urine Nitrite Negative Negative Urine Bilirubin Negative Negative Urine Urobilinogen Normal Negative mg/dL Urine Leukocyte Esterase 3+ Negative /uL Urine RBC 3446 0 - 4 /hpf Urine WBC Clumps Present None Seen /hpf Urine Microscopic WBC 13630 H 0-5 /HPF Urine Squamous Epithelial Cells Many <5 /hpf Urine Bacteria None seen None Seen /hpf Urine Yeast (Budding) Loaded None Seen /hpf Urine Glucose 2+ H Normal mg/dL Microbiology Date/Time Source Procedure Growth Status 10/11/24 13:54 Blood Blood Culture - Preliminary NO GROWTH AFTER 24 HOURS OF INCUBATION. Resulted 10/11/24 13:35 Urine - [place] Urine Culture - Preliminary Resulted Assessment/Plan Plan Patient is a 84-year-old female who was brought to the hospital on October 10, 2024 for generalized weakness and nausea and vomiting. On October 12, 2024 I was called for cardiology consultation. Patient has been admitted and is being managed for metabolic encephalopathy, uncontrolled diabetes, complicated pne umonia/UTI, septic shock by primary team. She was coming to our office as outpatient until December 2023. Does have advanced dementia at baseline. As per family members, as the patient was on hospice, she did not follow as outpatient with us since then. Does have history of coronary artery disease and the last cardiac catheterization of February 2023 had revealed one-vessel cor onary artery disease ([employer]). Family had wished for no invasive management previously. It is of note that the arrival EKG questioned inferior STEMI and no cardiology input has been in the chart. It is of note that the same EKG reveals inferior Q-waves and as the patient's arrival troponin was absolutely normal, this usually means that the presentation was not STEMI. At the time of evaluation, patient is only oriented to self. She denies any discomfort. Lying in bed with no discomfort. Not using accessory muscles of breathing. No JVD. Not following commands. Mucosa is pink and wet. No carotid bruit. No goiter. Lungs are clear to auscultation. Cardiac: Regular, no thrill. Systolic murmur 2/6 in the apex is heard. Abdomen is soft. Extremities do not reveal edema. Dorsalis pedis 2+ bilateral Past medical history includes advanced dementia, diabetes mellitus, old history of coronary artery disease (known [employer]), old history of CVA, diastolic heart failure, valvular heart disease (severe mitral annular calcification and mild mitral stenosis), status post pacemaker ([employer]) implantation, pulmonary hypertension, vitamin B12 deficiency, peripheral artery disease, status post old hip fracture (right side) CKD, hypertension, hyperlipidemia, diabetic neuropathy and old history of hysterectomy. Family had decided against any invasive management from years ago. Echocardiogram of June 2023 had revealed ejection fraction of 50%, could not rule out wall motion abnormality and there was trace mitral regurgitation. Echocardiogram of December 2023 had revealed mild concentric left ventricular hypertrophy, ejection fraction of 55-60%, mild mitral valve prolapse, severe mitral annular calcification and mild mitral stenosis Left heart catheterization of February 2023 had revealed one-vessel coronary artery disease, [employer] WBC: 10.2 - 8.3 Creatinine: 1.75 - 1.39 Potassium: 4.3 - 3.5 Troponin (high sensitive): 7 - 14 - 37 - 380 Chest x-ray revealed: IMPRESSION: Cardiomegaly with pulmonary vascular congestion and bilateral patchy airspace opacities. Arrival EKG revealed sinus tachycardia, anterior age indeterminate MT, inferior MT with Q-waves) Tele reveals sinus rhythm Patient is a 84-year-old female with poor functional capacity, advanced dementia who is oriented only to self. Presented with generalized weakness/nausea and vomiting. Is being managed by sepsis/pneumonia. Does have uncontrolled diabetes mellitus. Troponin has increased. Presentation is considered non- STEMI. Recognizing old cardiac catheterization information, possible hypotension during presentation for comorbidities/septic shock may have contributed to type 2 physiology. Component of type 1 physiology can not be ruled out. It is of note that the patient's/family members wishes from before has been no invasive management. I called and talked to patient's next of kin (granddaughter) who still is against invasive management. Recognizing patient's comorbidities/advanced dementia medical therapy is suggested. It is of note that the patient has been on hospice as outpatient. Patient does have a pa cemaker ([employer]) which was last interrogated in December 2023. Encephalopathy, metabolic Advanced dementia Abnormal troponin Non-STEMI Septic shock TERA Coronary artery disease, known history of Valvular heart disease, history of mitral stenosis/severe mitral annular calcification TERA on CKD Diastolic heart failure Old history of CVA Hypertension Hyperlipidemia Status post pacemaker ([employer]) implantation. Cardiac suggestion for management: Gentle diuresis Manage on telemetry Follow-up electrolytes and kidney function tests and correct abnormalities Request for echocardiogram Request for interrogation of the pacemaker ([employer]) Aspirin/Plavix is suggested Lovenox, therapeutic dose at this point is suggested (recognizing CKD, once daily dose will be given) Evaluation and management of diabetes mellitus/sepsis/pneumonia/septic shock as per primary team You might consider Neurology evaluation for advanced dementia. You may consider rechecking vitamin B12 in a patient with history of vitamin B12 deficiency and advanced dementia. Further evaluation and management depends on the above and clinical course Thank you for consultation A total of 75 minutes was spent reviewing the patient record, examining the pa tient, making a diagnostic and therapeutic plan, discussing this plan with medical personnel, following up on diagnostic studies and following the patient for clinical stability excluding any and all procedures. At least 50% of this time was spent in direct, [id number] contact. Thank you for allowing me to participate in this patient's care. Further recommendations will depend on patient's clinical course. Please do not hesitate to contact me if you have any questions or concerns. This medical document was created using electronic medical record system with [employer] computerized dictation system. Although this document has been carefully reviewed, there may still be some phonetic and typographical errors. These areas are purely typographical due to the imperfection of the software programs, and do not reflect any compromise in the patient's medical care. Plan discussed with: Patient, Other (nurse) ANJELICA NORTON MD Oct 12, 2024 15:58
[2024-10-12] MEDS: ENOXAPARIN SOD 60 MG/0.6 ML SYRINGE SC ONE (16:10)
[2024-10-12] MEDS: CLOPIDOGREL BISULFATE 75 MG TAB PO ONE (16:11)
[2024-10-12] MEDS: HYDROcodone-ACET 5/325MG TAB PO PRN (16:12)
[2024-10-13] VITALS (8 sets, daily range): BP systolic 120–157; BP diastolic 61–91; PULSE 59–69; RESP 16–20; TEMP 96.6–97.9; O2SAT 96–99
--- NOTE | 2024-10-13 08:08 | DVHSR ---
APPROVED REPORT EXAM: Two-dimensional and M-mode echocardiogram with Doppler and color Doppler. Blood Pressure: 140/44 mmHg INDICATION MD ORDER Surgery/Intervention Pacemaker: [employer] Height: 5'2, Weight: 139 DIMENSIONS LVDd4.8 (3.8-5.7cm)LA (2D)4.7 (1.9-4.0cm)Aortic Root3.3 (2.0-3.7cm) LVDs3.2 (2.5-4.0cm)LA (MM) (1.9-4.0cm)Aortic Cusp Exc1.6 (1.5-2.0cm) EF (%) 50.0 (55-70%)Rt. Atrium3.9 (1.9-4.0cm)Asc. Aorta cm IVSd1.0 (0.7-1.1cm)RV (D)3.8 (1.8-2.4cm) PWd0.8 (0.7-1.1cm) Mitral Valve MitralMitral Stenosis E wave0.87m/sMV Mean GR.2mmHg A wave1.31m/sMV Peak GR.61mmHg E/A ratio0.72D MVAcm2 DECEL [id number] 1/2 Tim[place] Aortic Valve Aortic ValveAortic Stenosis V10.81m/Guido Mean GR.2mmHg V20.89m/Guido Peak GR.3mmHg LVOT Diameter2.2 (1.8-2.4cm)Doppler AVA3.46cm2 Pulmonic Valve V20.80m/s Tricuspid Valve TR Velocity2.83m/s [id number] Other Information Technically limited study due to PT confused and moving Conclusion Left ventricle: Concentric left ventricular hypertrophy was seen. LVEF was around 50%. Mid to dist al anterior/anteroseptal and also apical akinesia seen. Abnormal relaxation with increased filling p ressure of left ventricular diastolic function was observed. Ischemic cardiomyopathy. Right ventricle is normal-sized with normal systolic function. Both atria were mildly dilated. Paci ng wire was seen in right-sided chambers. Aortic valve was trileaflet. There was no aortic insufficiency/stenosis. There was mild mitral/tric uspid regurgitation. Pulmonary valve was not well visualized. Right ventricular systolic pressure was assessed at 38 mm Hg. There was no pericardial effusion.
--- NOTE | 2024-10-13 08:13 | DVHPN2 ---
Progress Note - Dictate Date Seen: Oct 13, 2024 Medical Necessity Reason Pt with a Central, PICC or Fol: No vital signs Vital Sign Date Time Temp Pulse Resp B/P (MAP) Pulse Ox O2 Delivery O2 Flow Rate FiO2 10/13/24 05:00 97.8 60 18 136/61 (86) 99 97.8 10/12/24 20:00 Room Air* 0 21 Total Intake and Output 10/12/24 10/12/24 10/13/24 15:00 23:00 07:00 Intake Total 300 ml 480 ml 1350.8 ml Output Total 500 ml 200 ml Balance 300 ml -20 ml 1150.8 ml medications Current Medications Medications Dose Ordered Sig/Justin Route Start Time Stop Time Status Last Admin Dose Admin Aspirin 81 mg DAILY PO 10/11/24 10:00 10/12/24 10:07 81 MG Atorvastatin Calcium 10 mg HS PO 10/10/24 22:00 10/11/24 21:14 10 MG Metoprolol Tartrate 50 mg BID PO 10/10/24 22:00 10/12/24 10:07 50 MG Clonidine HCl 0.1 mg Q4HP PRN PO 10/10/24 21:30 Diagnostic Test (Pha) 1 strip IQ4HR 10/11/24 00:00 10/13/24 03:36 1 STRIP Insulin Human Regular IQ4HR SC 10/11/24 00:00 10/12/24 16:22 2 UNITS Dextrose 50 ml UD PRN IV 10/10/24 21:30 Sodium Chloride 1,000 ml @ 60 mls/hr [id number] IV 10/10/24 21:30 10/13/24 03:38 60 MLS/HR Acetaminophen/ Hydrocodone Bitart 1 tab Q4HP PRN PO 10/10/24 21:30 10/12/24 16:12 1 TAB Ondansetron HCl 4 mg Q4HP PRN IV 10/10/24 21:30 Docusate Sodium 100 mg BIDPRN PRN PO 10/10/24 21:30 Acetaminophen 650 mg Q6HP PRN PO 10/10/24 21:30 Nitroglycerin 0.4 mg Q5MINP PRN SL 10/10/24 23:30 Morphine Sulfate 2 mg Q30M PRN IV 10/10/24 23:30 Ceftriaxone Sodium 50 ml @ 100 mls/hr DAILY@09 IV 10/12/24 09:00 10/12/24 08:38 100 MLS/HR Azithromycin 250 ml @ 125 mls/hr DAILY IV 10/12/24 10:00 10/12/24 10:07 125 MLS/HR Clopidogrel Bisulfate 75 mg DAILY PO 10/13/24 10:00 Enoxaparin Sodium 60 mg DAILY SC 10/13/24 10:00 laboratory and microbiology Laboratory Tests 10/11/24 05:50 Test 10/11/24 05:50 Range/Units Serum Glucose 122 H 74-106 mg/dL Assessment/Plan Patient is a 84-year-old female who was brought to the hospital on October 10, 2024 for generalized weakness and nausea and vomiting. On October 12, 2024 I was called for cardiology consultation. Patient has been admitted and is being managed for metabolic encephalopathy, uncontrolled diabetes, complicated pneumonia/UTI, septic shock by primary team. She was coming to our office as outpatient until December 2023. Does have advanced dementia at baseline. As per family members, as the patient was on hospice, she did not follow as outpatient with us since then. Does have history of coronary artery disease and the last cardiac catheterization of February 2023 had revealed one-vessel coronary artery disease ([address] MAGISTRATE of mid LAD). Family had wished for no invasive management previously. It is of note that the arrival EKG questioned inferior STEMI and no cardiology input has been in the chart. It is of note that the same EKG reveals inferior Q-waves and as the patient's arrival troponin was absolutely normal, this usually means that the presentation was not STEMI. At the time of evaluation, patient is only oriented to self. She denies any discomfort. Lying in bed with no discomfort. Not using accessory muscles of breathing. No JVD. Not following commands. Mucosa is pink and wet. No carotid bruit. No goiter. Lungs are clear to auscultation. Cardiac: Regular, no thrill. Systolic murmur 2/6 in the apex is heard. Abdomen is soft. Extremities do not reveal edema. Dorsalis pedis 2+ bilateral Past medical history includes advanced dementia, diabetes mellitus, old history of coronary artery disease (known [address] [employer] MAGISTRATE of mid LAD), old history of CVA, diastolic heart failure, valvular heart disease (severe mitral annular calcification and mild mitral stenosis), status post pacemaker ([employer]) implantation, pulmonary hypertension, vitamin B12 deficiency, peripheral artery disease, status post old hip fracture (right side) CKD, hypertension, hyperlipidemia, diabetic neuropathy and old history of hysterectomy. Family had decided against any invasive management from years ago. Echocardiogram of June 2023 had revealed ejection fraction of 50%, could not rule out wall motion abnormality and there was trace mitral regurgitation. Echocardiogram of December 2023 had revealed mild concentric left ventricular hypertrophy, ejection fraction of 55-60%, mild mitral valve prolapse, severe mitral annular calcification and mild mitral stenosis Left heart catheterization of February 2023 had revealed one-vessel coronary artery disease, [address] [facility] MAGISTRATE of mid LAD WBC: 10.2 - 8.3 Creatinine: 1.75 - 1.39 Potassium: 4.3 - 3.5 Troponin (high sensitive): 7 - 14 - 37 - 380 Chest x-ray revealed: IMPRESSION: Cardiomegaly with pulmonary vascular congestion and bilateral patchy airspace opacities. Arrival EKG revealed sinus tachycardia, anterior age indeterminate NE, inferior NE with Q-waves) Tele reveals sinus rhythm Echocardiogram revealed: Left ventricle: Concentric left ventricular hypertrophy was seen. LVEF was around 50%. Mid to distal anterior/anteroseptal and also apical akinesia seen. Abnormal relaxation with increased filling pressure of left ventricular diastolic function was observed. Ischemic cardiomyopathy. Right ventricle is normal-sized with normal systolic function. Both atria were mildly dilated. Pacing wire was seen in right-sided chambers. Aortic valve was trileaflet. There was no aortic insufficiency/stenosis. There was mild mitral/tricuspid regurgitation. Pulmonary valve was not well visualized. Right ventricular systolic pressure was assessed at 38 mm Hg. There was no pericardial effusion. Patient is a 84-year-old female with poor functional capacity, advanced dementia who is oriented only to self. Presented with generalized weakness/nausea and vomiting. Is being managed by sepsis/pneumonia. Does have uncontrolled diabetes mellitus. Troponin has increased. Presentation is considered non- STEMI. Recognizing old cardiac catheterization information, possible hypotension during presentation for comorbidities/septic shock may have contributed to type 2 physiology. Component of type 1 physiology can not be ruled out. It is of note that the patient's/family members wishes from before has been no invasive management. I called and talked to patient's next of kin (granddaughter) who still is against invasive management. Recognizing patient's comorbidities/advanced dementia medical therapy is suggested. It is of note that the patient has been on hospice as outpatient. Patient does have a pacemaker ([employer]) which was last interrogated in December 2023. Echo revealed Akinesia of anterior and apical area pointing to previous [address] MAGISTRATE of LAD found in previous LHC of Encephalopathy, metabolic Advanced dementia Abnormal troponin Non-STEMI Septic shock TERA Coronary artery disease, known history of Valvular heart disease, history of mitral stenosis/severe mitral annular calcification TERA on CKD Diastolic heart failure Old history of CVA Hypertension Hyperlipidemia Status post pacemaker ([employer]) implantation. Ischemic Cardiomyopathy Cardiac suggestion for management: Gentle diuresis Manage on telemetry Follow-up electrolytes and kidney function tests and correct abnormalities Awaiting interrogation of the pacemaker ([employer]) Aspirin/Plavix is suggested Lovenox, therapeutic dose at this point is suggested (recognizing CKD, once daily dose will be given) Evaluation and management of diabetes mellitus/sepsis/pneumonia/septic shock as per primary team You might consider Neurology evaluation for advanced dementia. You may consider rechecking vitamin B12 in a patient with history of vitamin B12 deficiency and advanced dementia. Further evaluation and management depends on the above and clinical course A total of 75 minutes was spent reviewing the patient record, examining the patient, making a diagnostic and therapeutic plan, discussing this plan with medical personnel, following up on diagnostic studies and following the patient for clinical stability excluding any and all procedures. At least 50% of this time was spent in direct, [id number] contact. Thank you for allowing me to participate in this patient's care. Further recommendations will depend on patient's clinical course. Please do not hesitate to contact me if you have any questions or concerns. This medical document was created using electronic medical record system with [employer] computerized dictation system. Although this document has been carefully reviewed, there may still be some phonetic and typographical errors. These areas are purely typographical due to the imperfection of the software programs, and do not reflect any compromise in the patient's medical care. Dietary Evaluation Review Recommendations by RD: Protein Supplementation Comments: 1) Add cardiac restriction to 60g CCHO diet 2) Initiate Glucerna qd 3) Collect HbA1c 4) Follow-up with cardiology and nephrology 5) Continue to monitor I&O, labs, and skin integrity Expected Outcomes/Goals: 1) appetite and labs to improve 2) wound to improve 3) f/u in 3-5 days Plan discussed with: Other (nurse) ANJELICA NORTON MD Oct 13, 2024 08:13
[2024-10-13] MEDS: ENOXAPARIN SOD 60 MG/0.6 ML SYRINGE SC SCH (10:51)
[2024-10-13] MEDS: CLOPIDOGREL BISULFATE 75 MG TAB PO SCH (10:51)
--- NOTE | 2024-10-13 13:06 | DVHPN2 ---
Reviewed: Care Plan, H&P, Labs, Medications, Previous Orders, Radiology Changes from previous H/P or p: No Changes Eyes: No Pain, No Vision change, No Conjunctivae inflammation, No Eyelid inflammation, No Other, No Redness ENT: No Ear pain, No Ear discharge, No Nose pain, No Nose discharge, No Nose congestion, No Mouth pain, No Mouth swelling, No Throat pain, No Throat swelling, No Other Cardiovascular: No Chest Pain, No Palpitations, No Orthopnea, No Paroxysmal Noc. Dyspnea, No Edema, No Lt Headedness, No Other Respiratory: No Cough, No Dry; Shortness of breath; No SOB with excertion, No Wheezing, No Hemoptysis, No Pleuritic Pain, No Sputum, No Other Gastrointestinal: Nausea, Vomiting; No Abdominal Pain, No Diarrhea, No Constipation, No Melena, No Hematochezia, No Other Genitourinary: No Dysuria, No Frequency, No Incontinence, No Hematuria, No Retention, No Other Musculoskeletal: No other, No neck pain, No shoulder pain, No arm pain, No back pain, No hand pain, No leg pain, No foot pain Skin: No Rash, No Lesions, No Jaundice, No Bruising, No Other Objective Vitals Vital Signs Date Time Temp Pulse Resp B/P (MAP) Pulse Ox O2 Delivery O2 Flow Rate FiO2 10/13/24 12:52 96.8 60 18 149/77 (101) 98 96.8 10/13/24 08:05 Room Air* 0 21 Intake/Output Intake and Output 10/13/24 07:00 Intake Total 2130.8 ml Output Total 700 ml Balance 1430.8 ml Intake Oral 660 ml IV Total 1470.8 ml Output Urine Total 700 ml # Bowel Movements 1 Medications Current Medications Medications Dose Ordered Sig/Justin Route Start Time Stop Time Status Last Admin Dose Admin Aspirin 81 mg DAILY PO 10/11/24 10:00 10/13/24 10:51 81 MG Atorvastatin Calcium 10 mg HS PO 10/10/24 22:00 10/11/24 21:14 10 MG Metoprolol Tartrate 50 mg BID PO 10/10/24 22:00 10/13/24 10:53 50 MG Clonidine HCl 0.1 mg Q4HP PRN PO 10/10/24 21:30 Diagnostic Test (Pha) 1 strip IQ4HR 10/11/24 00:00 10/13/24 11:32 1 STRIP Insulin Human Regular IQ4HR SC 10/11/24 00:00 10/12/24 16:22 2 UNITS Dextrose 50 ml UD PRN IV 10/10/24 21:30 Sodium Chloride 1,000 ml @ 60 mls/hr [id number] IV 10/10/24 21:30 10/13/24 03:38 60 MLS/HR Acetaminophen/ Hydrocodone Bitart 1 tab Q4HP PRN PO 10/10/24 21:30 10/12/24 16:12 1 TAB Ondansetron HCl 4 mg Q4HP PRN IV 10/10/24 21:30 Docusate Sodium 100 mg BIDPRN PRN PO 10/10/24 21:30 Acetaminophen 650 mg Q6HP PRN PO 10/10/24 21:30 Nitroglycerin 0.4 mg Q5MINP PRN SL 10/10/24 23:30 Morphine Sulfate 2 mg Q30M PRN IV 10/10/24 23:30 Ceftriaxone Sodium 50 ml @ 100 mls/hr DAILY@09 IV 10/12/24 09:00 10/13/24 10:50 100 MLS/HR Azithromycin 250 ml @ 125 mls/hr DAILY IV 10/12/24 10:00 10/13/24 11:29 125 MLS/HR Clopidogrel Bisulfate 75 mg DAILY PO 10/13/24 10:00 10/13/24 10:51 75 MG Enoxaparin Sodium 60 mg DAILY SC 10/13/24 10:00 10/13/24 10:51 60 MG Laboratory Results Laboratory Tests 10/11/24 05:50 Urinalysis Test 10/10/24 07:36 Urine Color Dark-brown (Yellow) Urine Clarity Ex.turbid (Clear) Urine pH 5.5 (5.0-9.0) Urine Specific [place] 1.014 (1.001-1.035) Urine Protein 2+ (Negative) H Urine Ketones Negative (Negative) Urine Blood 2+ /uL (Negative) H Urine Nitrite Negative (Negative) Urine Bilirubin Negative (Negative) Urine Urobilinogen Normal mg/dL (Negative) Urine Leukocyte Esterase 3+ /uL (Negative) Urine RBC 3446 /hpf (0 - 4) Urine WBC Clumps Present /hpf (None Seen) Urine Microscopic WBC 50299 /HPF (0-5) H Urine Squamous Epithelial Cells Many /hpf (<5) Urine Bacteria None seen /hpf (None Seen) Urine Yeast (Budding) Loaded /hpf (None Seen) Urine Glucose 2+ mg/dL (Normal) H Microbiology Microbiology Date/Time Source Procedure Growth Status 10/11/24 13:54 Blood Blood Culture - Preliminary NO GROWTH AFTER 24 HOURS OF INCUBATION. Resulted 10/11/24 13:35 Urine - [place] Urine Culture - Preliminary Resulted Labs and/or images reviewed: Labs reviewed by me, Image(s) reviewed by me Assessment/Plan Assessment/Plan Septic shock with altered mental status elevated white count confusion secondary to urinary tract infection Acute urinary tract infection: Blood cultures negative, continue Rocephin Urine cultures growing yeast: Diflucan 200 mg IV daily Community-acquired pneumonia Gram-positive versus Gram-negative: Rocephin azithromycin Flu test pending COVID test pending History of CVA Non STEMI Coronary artery disease Mitral stenosis Diastolic heart failure Status post pacemaker: Dr Anna ordered pacemaker interrogation Uncontrolled diabetes: Insulin sliding scale Hypertension Ischemic Cardiomyopathy Elevated troponin 380: Cardiology consult Multiple wounds present on admission sacrum and bilateral heel: Wound consult Hypercholesterolemia Dementia Nausea and vomiting Severe malnutrition Time spent 66 minutes Advanced care planning time 20 minutes Patient is full code Patient is hospice revoked Daughter Rhonda [phone] at bedside Plan discussed with: Patient My Orders Orders - THALIA WHITE MD Procedure Category Date Status Time * Dietary Consult CONS 10/12/24 Transmitted 15:37 Apply Z-Guard GARETT 10/12/24 In Process 12:57 Cleanse Wound With GARETT 10/12/24 In Process Wound Clean 12:57 Date of Service: Oct 13, 2024 Billing Provider: THALIA WHITE MD Common Visit Codes: [id number] CARE 30-74 MIN THALIA WHITE MD Oct 13, 2024 13:06
[2024-10-13] MEDS: FLUCONAZOLE 200MG/100ML 100 ML IV ONE (14:06)
[2024-10-13] MEDS: ONDANSETRON HCL 4 MG/2 ML VIAL IV PRN (19:57)
[2024-10-14 01:00] VITALS: BP 140/65; PULSE 56; RESP 16; TEMP 98; O2SAT 96
[2024-10-14 05:00] VITALS: BP 145/74; PULSE 60; RESP 17; TEMP 98.5; O2SAT 98
--- NOTE | 2024-10-14 08:17 | ECG ---
[facility] Test Date: 2024-10-10 Test Time: 16:08:06 Pat Name: GABRIELA GARNER Department: [facility] ED Patient ID: [facility]-[id number] Room: 0287T A Gender: F Sales Support Administrator: lois : 1940 Requested By: ZAYRA JIMENEZ Order Number: [id number] Reading MD: Josh Eubanks Measurements Intervals [place] Rate: 108 P: 39 HI: 166 QRS: -33 QRSD: 100 T: 141 QT: 326 QTc: 437 Interpretive Statements Sinus tachycardia Probable inferior infarct, acute Anterior infarct, old Lateral leads are also involved Electronically Signed On 10-15-2024 14:26:53 PDT by Josh Eubanks Please click the below link to view image of tracing.
--- NOTE | 2024-10-14 08:36 | DVHPN2 ---
Progress Note - Dictate Date Seen: Oct 14, 2024 Medical Necessity Reason Pt with a Central, PICC or Fol: No vital signs Vital Sign Date Time Temp Pulse Resp B/P (MAP) Pulse Ox O2 Delivery O2 Flow Rate FiO2 10/14/24 08:03 Room Air* 0 21 10/14/24 05:00 98.5 60 17 145/74 (97) 98 98.5 Total Intake and Output 10/13/24 10/13/24 10/14/24 15:00 23:00 07:00 Intake Total 536 ml 400 ml 100 ml Output Total 550 ml 600 ml Balance 536 ml -150 ml -500 ml medications Current Medications Medications Dose Ordered Sig/Justin Route Start Time Stop Time Status Last Admin Dose Admin Aspirin 81 mg DAILY PO 10/11/24 10:00 10/13/24 10:51 81 MG Atorvastatin Calcium 10 mg HS PO 10/10/24 22:00 10/13/24 21:43 10 MG Metoprolol Tartrate 50 mg BID PO 10/10/24 22:00 10/13/24 21:43 50 MG Clonidine HCl 0.1 mg Q4HP PRN PO 10/10/24 21:30 Diagnostic Test (Pha) 1 strip IQ4HR 10/11/24 00:00 10/14/24 08:27 1 STRIP Insulin Human Regular IQ4HR SC 10/11/24 00:00 10/12/24 16:22 2 UNITS Dextrose 50 ml UD PRN IV 10/10/24 21:30 Sodium Chloride 1,000 ml @ 60 mls/hr [id number] IV 10/10/24 21:30 10/13/24 16:10 60 MLS/HR Acetaminophen/ Hydrocodone Bitart 1 tab Q4HP PRN PO 10/10/24 21:30 10/13/24 14:06 1 TAB Ondansetron HCl 4 mg Q4HP PRN IV 10/10/24 21:30 10/13/24 19:57 4 MG Docusate Sodium 100 mg BIDPRN PRN PO 10/10/24 21:30 Acetaminophen 650 mg Q6HP PRN PO 10/10/24 21:30 Nitroglycerin 0.4 mg Q5MINP PRN SL 10/10/24 23:30 Morphine Sulfate 2 mg Q30M PRN IV 10/10/24 23:30 Ceftriaxone Sodium 50 ml @ 100 mls/hr DAILY@09 IV 10/12/24 09:00 10/13/24 10:50 100 MLS/HR Azithromycin 250 ml @ 125 mls/hr DAILY IV 10/12/24 10:00 10/13/24 11:29 125 MLS/HR Clopidogrel Bisulfate 75 mg DAILY PO 10/13/24 10:00 10/13/24 10:51 75 MG Enoxaparin Sodium 60 mg DAILY SC 10/13/24 10:00 10/13/24 10:51 60 MG Fluconazole 100 ml @ 100 mls/hr DAILY IV 10/14/24 10:00 laboratory and microbiology Laboratory Tests 10/11/24 05:50 Test 10/11/24 05:50 Range/Units Serum Glucose 122 H 74-106 mg/dL Assessment/Plan Patient is a 84-year-old female who was brought to the hospital on October 10, 2024 for generalized weakness and nausea and vomiting. On October 12, 2024 I was called for cardiology consultation. Patient has been admitted and is being managed for metabolic encephalopathy, uncontrolled diabetes, complicated pneumonia/UTI, septic shock by primary team. She was coming to our office as outpatient until December 2023. Does have advanced dementia at baseline. As per family members, as the patient was on hospice, she did not follow as outpatient with us since then. Does have history of coronary artery disease and the last cardiac catheterization of February 2023 had revealed one-vessel coronary artery disease (CANDLE MOLDER HAND of mid LAD). Family had wished for no invasive management previously. It is of note that the arrival EKG questioned inferior STEMI and no cardiology input has been in the chart. It is of note that the same EKG reveals inferior Q-waves and as the patient's arrival troponin was absolutely normal, this usually means that the presentation was not STEMI. At the time of evaluation, patient is only oriented to self. She denies any discomfort. Lying in bed with no discomfort. Not using accessory muscles of breathing. No JVD. Not following commands. Mucosa is pink and wet. No carotid bruit. No goiter. Lungs are clear to auscultation. Cardiac: Regular, no thrill. Systolic murmur 2/6 in the apex is heard. Abdomen is soft. Extremities do not reveal edema. Dorsalis pedis 2+ bilateral Past medical history includes advanced dementia, diabetes mellitus, old history of coronary artery disease (known CANDLE MOLDER HAND of mid LAD), old history of CVA, diastolic heart failure, valvular heart disease (severe mitral annular calcification and mild mitral stenosis), status post pacemaker ([employer]) implantation, pulmonary hypertension, vitamin B12 deficiency, peripheral artery disease, status post old hip fracture (right side) CKD, hypertension, hyperlipidemia, diabetic neuropathy and old history of hysterectomy. Family had decided against any invasive management from years ago. Echocardiogram of June 2023 had revealed ejection fraction of 50%, could not rule out wall motion abnormality and there was trace mitral regurgitation. Echocardiogram of December 2023 had revealed mild concentric left ventricular hypertrophy, ejection fraction of 55-60%, mild mitral valve prolapse, severe mitral annular calcification and mild mitral stenosis Left heart catheterization of February 2023 had revealed one-vessel coronary artery disease, CANDLE MOLDER HAND of mid LAD WBC: 10.2 - 8.3 Creatinine: 1.75 - 1.39 Potassium: 4.3 - 3.5 Troponin (high sensitive): 7 14 - 37 - 380 Chest x-ray revealed: IMPRESSION: Cardiomegaly with pulmonary vascular congestion and bilateral patchy airspace opacities. Arrival EKG revealed sinus tachycardia, anterior age indeterminate MD, inferior MD with Q-waves) Tele reveals sinus rhythm Echocardiogram revealed: Left ventricle: Concentric left ventricular hypertrophy was seen. LVEF was around 50%. Mid to distal anterior/anteroseptal and also apical akinesia seen. Abnormal relaxation with increased filling pressure of left ventricular diastolic function was observed. Ischemic cardiomyopathy. Right ventricle is normal-sized with normal systolic function. Both atria were mildly dilated. Pacing wire was seen in right-sided chambers. Aortic valve was trileaflet. There was no aortic insufficiency/stenosis. There was mild mitral/tricuspid regurgitation. Pulmonary valve was not well visualized. Right ventricular systolic pressure was assessed at 38 mm Hg. There was no pericardial effusion. Patient is a 84-year-old female with poor functional capacity, advanced dementia who is oriented only to self. Presented with generalized weakness/nausea and vomiting. Is being managed by sepsis/pneumonia. Does have uncontrolled diabetes mellitus. Troponin has increased. Presentation is considered non- STEMI. Recognizing old cardiac catheterization information, possible hypotension during presentation for comorbidities/septic shock may have contributed to type 2 physiology. Component of type 1 physiology can not be ruled out. It is of note that the patient's/family members wishes from before has been no invasive management. I called and talked to patient's next of kin (granddaughter) who still is against invasive management. Recognizing patient's comorbidities/advanced dementia medical therapy is suggested. It is of note that the patient has been on hospice as outpatient. Patient does have a pacemaker ([employer]) which was last interrogated in December 2023. Echo revealed Akinesia of anterior and apical area pointing to previous CANDLE MOLDER HAND of LAD found in previous C of Encephalopathy, metabolic Advanced dementia Abnormal troponin Non-STEMI Septic shock TERA Coronary artery disease, known history of Valvular heart disease, history of mitral stenosis/severe mitral annular calcification TERA on CKD Diastolic heart failure Old history of CVA Hypertension Hyperlipidemia Status post pacemaker ([employer]) implantation. Ischemic Cardiomyopathy Cardiac suggestion for management: Gentle diuresis Manage on telemetry Follow-up electrolytes and kidney function tests and correct abnormalities Awaiting interrogation of the pacemaker ([employer]) Aspirin/Plavix is suggested Lovenox, therapeutic dose at this point is suggested (recognizing CKD, once daily dose will be given) Evaluation and management of diabetes mellitus/sepsis/pneumonia/septic shock as per primary team You might consider Neurology evaluation for advanced dementia. You may consider rechecking vitamin B12 in a patient with history of vitamin B12 deficiency and advanced dementia. Further evaluation and management depends on the above and clinical course A total of 75 minutes was spent reviewing the patient record, examining the patient, making a diagnostic and therapeutic plan, discussing this plan with medical personnel, following up on diagnostic studies and following the patient for clinical stability excluding any and all procedures. At least 50% of this time was spent in direct, [id number] contact. Thank you for allowing me to participate in this patient's care. Further recommendations will depend on patient's clinical course. Please do not hesitate to contact me if you have any questions or concerns. This medical document was created using electronic medical record system with [employer] computerized dictation system. Although this document has been carefully reviewed, there may still be some phonetic and typographical errors. These areas are purely typographical due to the imperfection of the software programs, and do not reflect any compromise in the patient's medical care. Dietary Evaluation Review Recommendations by RD: Protein Supplementation Comments: 1) Add cardiac restriction to 60g CCHO diet 2) Initiate Glucerna qd 3) Collect HbA1c 4) Follow-up with cardiology and nephrology 5) Continue to monitor I&O, labs, and skin integrity Expected Outcomes/Goals: 1) appetite and labs to improve 2) wound to improve 3) f/u in 3-5 days Plan discussed with: Other (nurse) ANJELICA NORTON MD Oct 14, 2024 08:36
[2024-10-14] MEDS: FLUCONAZOLE 200MG/100ML 100 ML IV SCH (08:51)
[2024-10-14 09:00] VITALS: BP 170/74; PULSE 64; RESP 17; TEMP 98.5; O2SAT 96
[2024-10-14 13:00] VITALS: BP 169/65; PULSE 60; RESP 17; TEMP 98.5; O2SAT 99
--- NOTE | 2024-10-14 13:00 | DVHPN2 ---
Reviewed: Care Plan, H&P, Labs, Medications, Previous Orders, Radiology Changes from previous H/P or p: No Changes Eyes: No Pain, No Vision change, No Conjunctivae inflammation, No Eyelid inflammation, No Other, No Redness ENT: No Ear pain, No Ear discharge, No Nose pain, No Nose discharge, No Nose congestion, No Mouth pain, No Mouth swelling, No Throat pain, No Throat swelling, No Other Cardiovascular: No Chest Pain, No Palpitations, No Orthopnea, No Paroxysmal Noc. Dyspnea, No Edema, No Lt Headedness, No Other Respiratory: No Cough, No Dry; Shortness of breath; No SOB with excertion, No Wheezing, No Hemoptysis, No Pleuritic Pain, No Sputum, No Other Gastrointestinal: Nausea, Vomiting; No Abdominal Pain, No Diarrhea, No Constipation, No Melena, No Hematochezia, No Other Genitourinary: No Dysuria, No Frequency, No Incontinence, No Hematuria, No Retention, No Other Musculoskeletal: No other, No neck pain, No shoulder pain, No arm pain, No back pain, No hand pain, No leg pain, No foot pain Skin: No Rash, No Lesions, No Jaundice, No Bruising, No Other Objective Vitals Vital Signs Date Time Temp Pulse Resp B/P (MAP) Pulse Ox O2 Delivery O2 Flow Rate FiO2 10/14/24 09:00 98.5 64 17 170/74 (106) 96 98.5 10/14/24 08:03 Room Air* 0 21 Intake/Output Intake and Output 10/14/24 07:00 Intake Total 1036 ml Output Total 1150 ml Balance -114 ml Intake Oral 636 ml IV Total 400 ml Output Urine Total 1150 ml Medications Current Medications Medications Dose Ordered Sig/Justin Route Start Time Stop Time Status Last Admin Dose Admin Aspirin 81 mg DAILY PO 10/11/24 10:00 10/14/24 08:50 81 MG Atorvastatin Calcium 10 mg HS PO 10/10/24 22:00 10/13/24 21:43 10 MG Metoprolol Tartrate 50 mg BID PO 10/10/24 22:00 10/14/24 08:50 50 MG Clonidine HCl 0.1 mg Q4HP PRN PO 10/10/24 21:30 Diagnostic Test (Pha) 1 strip IQ4HR 10/11/24 00:00 10/14/24 08:27 1 STRIP Insulin Human Regular IQ4HR SC 10/11/24 00:00 10/12/24 16:22 2 UNITS Dextrose 50 ml UD PRN IV 10/10/24 21:30 Sodium Chloride 1,000 ml @ 60 mls/hr [id number] IV 10/10/24 21:30 10/13/24 16:10 60 MLS/HR Acetaminophen/ Hydrocodone Bitart 1 tab Q4HP PRN PO 10/10/24 21:30 10/13/24 14:06 1 TAB Ondansetron HCl 4 mg Q4HP PRN IV 10/10/24 21:30 10/13/24 19:57 4 MG Docusate Sodium 100 mg BIDPRN PRN PO 10/10/24 21:30 Acetaminophen 650 mg Q6HP PRN PO 10/10/24 21:30 Nitroglycerin 0.4 mg Q5MINP PRN SL 10/10/24 23:30 Morphine Sulfate 2 mg Q30M PRN IV 10/10/24 23:30 Ceftriaxone Sodium 50 ml @ 100 mls/hr DAILY@09 IV 10/12/24 09:00 10/13/24 10:50 100 MLS/HR Azithromycin 250 ml @ 125 mls/hr DAILY IV 10/12/24 10:00 10/13/24 11:29 125 MLS/HR Clopidogrel Bisulfate 75 mg DAILY PO 10/13/24 10:00 10/14/24 08:50 75 MG Enoxaparin Sodium 60 mg DAILY SC 10/13/24 10:00 10/14/24 08:52 60 MG Fluconazole 100 ml @ 100 mls/hr DAILY IV 10/14/24 10:00 Laboratory Results Laboratory Tests 10/11/24 05:50 Urinalysis Test 10/10/24 07:36 Urine Color Dark-brown (Yellow) Urine Clarity Ex.turbid (Clear) Urine pH 5.5 (5.0-9.0) Urine Specific [place] 1.014 (1.001-1.035) Urine Protein 2+ (Negative) H Urine Ketones Negative (Negative) Urine Blood 2+ /uL (Negative) H Urine Nitrite Negative (Negative) Urine Bilirubin Negative (Negative) Urine Urobilinogen Normal mg/dL (Negative) Urine Leukocyte Esterase 3+ /uL (Negative) Urine RBC 3446 /hpf (0 - 4) Urine WBC Clumps Present /hpf (None Seen) Urine Microscopic WBC 22141 /HPF (0-5) H Urine Squamous Epithelial Cells Many /hpf (<5) Urine Bacteria None seen /hpf (None Seen) Urine Yeast (Budding) Loaded /hpf (None Seen) Urine Glucose 2+ mg/dL (Normal) H Microbiology Microbiology Date/Time Source Procedure Growth Status 10/11/24 13:54 Blood Blood Culture - Preliminary NO GROWTH AFTER 48 HOURS OF INCUBATION. Resulted 10/11/24 13:35 Urine - [place] Urine Culture - Preliminary Resulted Labs and/or images reviewed: Labs reviewed by me, Image(s) reviewed by me Assessment/Plan Assessment/Plan Septic shock with altered mental status elevated white count confusion secondary to urinary tract infection Acute urinary tract infection: Blood cultures negative, continue Rocephin Urine cultures growing yeast: Diflucan 200 mg IV daily Community-acquired pneumonia Gram-positive versus Gram-negative: Rocephin azithromycin Flu test pending COVID test pending History of CVA Non STEMI Coronary artery disease Mitral stenosis Diastolic heart failure Status post pacemaker: Dr Anna ordered pacemaker interrogation Uncontrolled diabetes: Insulin sliding scale Hypertension Ischemic Cardiomyopathy Elevated troponin 380: Cardiology consult Multiple wounds present on admission sacrum and bilateral heel: Wound consult Hypercholesterolemia Dementia Nausea and vomiting Severe malnutrition The daughter at the bedside requesting patient to be discharged back on hospice She does not want jail facility placement for IV antibiotics Plan discussed with: Patient My Orders Orders - THALIA WHITE MD Procedure Category Date Status Time Communication Order ORDERS 10/13/24 Transmitted 13:06 Date of Service: Oct 14, 2024 Billing Provider: THALIA WHITE MD Common Visit Codes: [id number] INP/OBS CARE(HIGH) THALIA WHITE MD Oct 14, 2024 13:00
--- NOTE | 2024-10-14 13:04 | DVHDS2 ---
Discharge Summary Date of Admission Oct 10, 2024 at 23:18 Date of Discharge: Oct 14, 2024 Admitting Diagnosis Altered mental status and confusion Wounds: None Labs/Diagnostic Data: Laboratory Results Test 10/14/24 08:43 10/12/24 16:22 10/11/24 21:00 10/11/24 05:50 POC Glucose 84 mg/dl (70-106) Vitamin B12 Level 674 pg/mL (211-911) Influenza Type A Antigen Negative (Negative) Influenza Type B Antigen Negative (Negative) SARS-CoV-2 Antigen (Rapid) Negative (NEGATIVE) White Blood Count 8.3 10^3/uL (4.4-10.8) Red Blood Count 5.15 10^6/uL (4.0-5.20) Hemoglobin 13.7 g/dL (12.2-16.2) Hematocrit 41.1 % (36.0-46.0) Mean Corpuscular Volume 79.9 fL (80.0-100.0) Mean Corpuscular Hemoglobin 26.7 pg (28.0-32.0) Mean Corpuscular Hemoglobin Concent 33.3 g/dL (32.0-36.0) Red Cell Distribution Width 14.2 % (11.8-14.3) Platelet Count 295 10^3/uL (140-450) Mean Platelet Volume 7.2 fL (6.9-10.8) Neutrophils (%) (Auto) 63.0 % (37.0-80.0) Lymphocytes (%) (Auto) 25.2 % (10.0-50.0) Monocytes (%) (Auto) 10.0 % (0.0-12.0) Eosinophils (%) (Auto) 1.3 % (0.0-7.0) Basophils (%) (Auto) 0.5 % (0.0-2.0) Neutrophils # (Auto) 5.2 10 ^3/uL (1.6-8.6) Lymphocytes # (Auto) 2.1 10 ^3/uL (0.4-5.4) Monocytes # (Auto) 0.8 10 ^3/uL (0-1.3) Eosinophils # (Auto) 0.1 10 ^3/uL (0-0.8) Basophils # (Auto) 0 10 ^3/uL (0-0.2) Nucleated Red Blood Cells 0.1 % Sodium Level 139 mmol/L (136-145) Potassium Level 3.5 mmol/L (3.5-5.1) Chloride Level 105 mmol/L (98-107) Carbon Dioxide Level 20 mmol/L (20-31) Anion Gap 14 (5-15) Blood Urea Nitrogen 30 mg/dL (9-23) Creatinine 1.39 mg/dL (0.550-1.02) Glomerular Filtration Rate Calc 37 mL/min (>90) BUN/Creatinine Ratio 21.6 (10.0-20.0) Serum Glucose 122 mg/dL (74-106) Calcium Level 9.6 mg/dL (8.7-10.4) Total Bilirubin 0.2 mg/dL (0.2-1.0) Aspartate Amino Transferase (AST) 8 U/L (13-40) Alanine Aminotransferase (ALT) < 9 U/L (7-40) Alkaline Phosphatase 74 U/L (46-116) Total Protein 7.2 g/dL (5.7-8.2) Albumin 4.0 g/dL (3.2-4.8) Test 10/10/24 22:17 10/10/24 07:36 Troponin I High Sensitivity 380 ng/L (</=34) Urine Color Dark-brown (Yellow) Urine Clarity Ex.turbid (Clear) Urine pH 5.5 (5.0-9.0) Urine Specific [place] 1.014 (1.001-1.035) Urine Protein 2+ (Negative) Urine Ketones Negative (Negative) Urine Blood 2+ /uL (Negative) Urine Nitrite Negative (Negative) Urine Bilirubin Negative (Negative) Urine Urobilinogen Normal mg/dL (Negative) Urine Leukocyte Esterase 3+ /uL (Negative) Urine RBC 3446 /hpf (0 - 4) Urine WBC Clumps Present /hpf (None Seen) Urine Microscopic WBC 20309 /HPF (0-5) Urine Squamous Epithelial Cells Many /hpf (<5) Urine Bacteria None seen /hpf (None Seen) Urine Yeast (Budding) Loaded /hpf (None Seen) Urine Glucose 2+ mg/dL (Normal) Other Laboratory Tests 10/11/24 05:50 Brief Hx & Hospital Course: 4-year-old female with a history of CVA coronary artery disease mitral stenosis congestive heart failure status post pacemaker diabetes hypertension ischemic cardiomyopathy burden by family for altered mental status and confusion found to have elevated white count. Found to have acute urinary tract infection blood cultures negative treated with Rocephin urine cultures grew positive for yeast Diflucan IV was added patient also has a community-acquired pneumonia treated with Rocephin and azithromycin pacemaker was interrogated by Dr. Anna. The family does not want the patient to go to residential facility for IV antibiotics for complicated UTI and requesting to be discharged back to [facility] hospice. Discharged on hospice. General condition fair at the time of discharge. Daughter Rhonda at the bedside. Consults/Reason for consult None Operations or Procedures None Condition at Discharge: Fair Final Diagnosis/Problems List Septic shock with altered mental status elevated white count confusion secondary to urinary tract infection Acute urinary tract infection: Blood cultures negative, continue Rocephin Urine cultures growing yeast: Diflucan 200 mg IV daily Community-acquired pneumonia Gram-positive versus Gram-negative: Rocephin azithromycin Flu test pending COVID test pending History of CVA Non STEMI Coronary artery disease Mitral stenosis Diastolic heart failure Status post pacemaker: Dr Anna ordered pacemaker interrogation Uncontrolled diabetes: Insulin sliding scale Hypertension Ischemic Cardiomyopathy Elevated troponin 380: Cardiology consult Multiple wounds present on admission sacrum and bilateral heel: Wound consult Hypercholesterolemia Dementia Nausea and vomiting Severe malnutrition Discharge Disposition: Hospice - Home Discharge Instruct/Medications Diet: Cardiac 2g Na,low cholest Activity: Light activity Follow Up/Referral: Follow up with your primary Medications: none Scheduled Aspirin (Aspirin), 1 TAB PO DAILY, (Reported) Cefdinir (Cefdinir), 1 CAP PO BID Cyanocobalamin (Vitamin B12), 1 TAB PO DAILY, (Reported) Dapagliflozin Propanediol (Farxiga), 1 TAB PO DAILY, (Reported) Diltiazem Hcl (Diltiazem Hcl Er), 1 CAP PO DAILY, (Reported) Enoxaparin Sodium (Lovenox), 40 MG SC DAILY Ergocalciferol (Vitamin D), 1 CAP PO QWEEKLY, (Reported) Ferrous Sulfate (Ferrous Sulfate), 1 TAB PO BID, (Reported) Folic Tlmm-Gtzkbvlcev-Sxwyyfxg (Folbic), 1 TAB PO DAILY, (Reported) Furosemide (Furosemide), 1 TAB PO DAILY, (Reported) Gabapentin (Gabapentin), 1 CAP PO BID, (Reported) Hydroxychloroquine Sulfate (Plaquenil), 1 TAB PO DAILY, (Reported) Losartan Potassium (Losartan Potassium), 100 MG PO DAILY, (Reported) Metoprolol Tartrate (Lopressor), 1 TAB PO DAILY, (Reported) Naloxone HCl (Narcan), 4 MG NA PRN Omeprazole (Gnp Omeprazole), 1 TAB PO QAM, (Reported) Oxybutynin Chloride (Oxybutynin Chloride), 1 TAB PO DAILY, (Reported) Sertraline Hcl (Sertraline Hcl), 1 TAB PO DAILY, (Reported) Simvastatin (Simvastatin), 5 MG PO DAILY, (Reported) Sitagliptin Phosphate (Januvia), 1 TAB PO DAILY, (Reported) Scheduled PRN Hydrocodone-Acetaminophen (Hydrocodone Bitartrate/AC 5-325 mg), 1 TAB PO Q6HP PRN Miscellaneous Medications Tirzepatide (Mounjaro), SC, (Reported) Discharge Statement: "Patient was advised to return to the ER or call 911 if any headaches, dizziness, shortness of breath, chest pain, abdominal pain, bleeding, fevers, or worsening of medical condition. Patient was counseled about treatment plan, medications, possible side effects, patientverbalized understanding. All questions were answered to the best of my ability. This discharge took greater then 30 minutes in planning, reviewing documentation, counseling the patient, and discussing with other team members." ASSESSMENT ASSESSMENT Hospital Course Improved Assessment Septic shock with altered mental status elevated white count confusion secondary to urinary tract infection Acute urinary tract infection: Blood cultures negative, continue Rocephin Urine cultures growing yeast: Diflucan 200 mg IV daily Community-acquired pneumonia Gram-positive versus Gram-negative: Rocephin azithromycin Flu test pending COVID test pending History of CVA Non STEMI Coronary artery disease Mitral stenosis Diastolic heart failure Status post pacemaker: Dr Anna ordered pacemaker interrogation Uncontrolled diabetes: Insulin sliding scale Hypertension Ischemic Cardiomyopathy Elevated troponin 380: Cardiology consult Multiple wounds present on admission sacrum and bilateral heel: Wound consult Hypercholesterolemia Dementia Nausea and vomiting Severe malnutrition Date of Service: Oct 14, 2024 Billing Provider: THALIA WHITE MD Common Visit Codes: 89568-LGF/OBS DISCH DAY >30min THALIA WHITE MD Oct 14, 2024 13:04
[2024-10-14 14:59] VITALS: BP 145/74; PULSE 75; TEMP 36.9
== END 2024-10-14 18:00 | disposition hospice, home (50) | DRG 871 ==
LOC: EDBD 16:07 → ER 16:07 → OVERFLOW 23:18 → TELE-WESTW 23:22
PROVIDERS: ADMIT Family Medicine; ATTEND Family Medicine
DX: A41.89 Other specified sepsis (principal); E43 Unspecified severe protein-calorie malnutrition; G93.41 Metabolic encephalopathy; I21.4 Non-ST elevation (NSTEMI) myocardial infarction; R65.21 Severe sepsis with septic shock; J15.69 Pneumonia due to other Gram-negative bacteria; J15.9 Unspecified bacterial pneumonia; N39.0 Urinary tract infection, site not specified; N17.9 Acute kidney failure, unspecified; I13.0 Hypertensive heart and chronic kidney disease with heart failure and stage 1 through stage 4 chronic kidney disease, or unspecified chronic kidney disease; I50.32 Chronic diastolic (congestive) heart failure; Z20.822 Contact with and (suspected) exposure to COVID-19; E78.00 Pure hypercholesterolemia, unspecified; N18.9 Chronic kidney disease, unspecified; I25.5 Ischemic cardiomyopathy; E11.22 Type 2 diabetes mellitus with diabetic chronic kidney disease; E11.40 Type 2 diabetes mellitus with diabetic neuropathy, unspecified; E11.51 Type 2 diabetes mellitus with diabetic peripheral angiopathy without gangrene; E11.65 Type 2 diabetes mellitus with hyperglycemia; F03.90 Unspecified dementia, unspecified severity, without behavioral disturbance, psychotic disturbance, mood disturbance, and anxiety; I05.0 Rheumatic mitral stenosis; I25.10 Atherosclerotic heart disease of native coronary artery without angina pectoris; I05.8 Other rheumatic mitral valve diseases; Z79.82 Long term (current) use of aspirin; Z79.84 Long term (current) use of oral hypoglycemic drugs; Z79.899 Other long term (current) drug therapy; Z80.1 Family history of malignant neoplasm of trachea, bronchus and lung; Z86.73 Personal history of transient ischemic attack (TIA), and cerebral infarction without residual deficits; Z90.710 Acquired absence of both cervix and uterus; Z95.0 Presence of cardiac pacemaker; Z83.3 Family history of diabetes mellitus; Z82.3 Family history of stroke; Z82.49 Family history of ischemic heart disease and other diseases of the circulatory system; Z82.61 Family history of arthritis; Z68.25 Body mass index [BMI] 25.0-25.9, adult
CPT/HCPCS: 36415; 71045; 80048; 80053; 81001; 82607; 82962; 84484; 85025; 87040; 87086; 87088; 87426; 87804; 93005; 93306; 96360; 99291; G0378; J1450; J1815; J2405